=== PATIENT | male | born 1955 | race Caucasian/White ===

== ENCOUNTER 2017-11-25 14:02 | Emergency (ER) | payer BC, OTHER ==
[~2017-11-25] VITALS: Ht 185.4 cm; Wt 157.9 kg
--- NOTE | 2017-11-25 14:49 | Diagnostic Imaging Report ---
INDICATION: Shortness of air. TIME OF EXAM: 2:32 PM CORRELATION is made with prior study of 11/25/2017. The heart appears to be enlarged. No infiltrate or failure is detected. No effusion or pneumothorax is seen. IMPRESSION: Cardiomegaly. No other significant abnormality is detected. Dictated by: Dictated on workstation # [id number]
--- NOTE | 2017-11-25 15:35 | ED Respiratory ---
General Chief Complaint: Respiratory Problems Stated Complaint: SOA LIGHTHEADED Source: patient, family Exam Limitations: no limitations History of Present Illness Date Seen by Provider: Nov 25, 2017 Time Seen by Provider: 15:16 Initial Comments The patient is a 61-year-old white male who presented here with a complaint of shortness of breath. He reported that he was at [facility] and walked a short distance to his car. He felt very short of breath at that point in time. 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 He continues to take anticoagulants. They are concerned that he may have recurrent DVT and pulmonary emboli. 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 He is a lifetime nonsmoker. Timing/Duration: just prior to arrival Prior Episodes/Possible Cause: no prior episodes Allergies and Home Medications Allergies Coded Allergies: morphine (Verified Allergy, Mild, rash, 11/25/17) Home Medications Glipizide 10 Mg Tablet, 10 MG PO BID, (Reported) Levothyroxine Sodium 175 Mcg Tablet, 175 MCG PO DAILY, (Reported) Metformin HCl 1,000 Mg Tablet, 1,000 MG PO BID, (Reported) Warfarin Sodium 5 Mg Tablet, 5 MG PO HS, (Reported) Patient Home Medication List Home Medication List Reviewed: Yes Review of Systems Constitutional: see HPI EENTM: no symptoms reported Respiratory: short of breath Cardiovascular: no symptoms reported Gastrointestinal: no symptoms reported Genitourinary: no symptoms reported Musculoskeletal: back pain, other (he is to have future back surgery. He is reported to be very detuned physically because of inactivity increased by the back pain) Skin: no symptoms reported Psychiatric/Neurological: No Symptoms Reported Hematologic/Lymphatic: No Symptoms Reported Immunological/Allergic: no symptoms reported Past Ftryypl-Lcepag-Oihwkj Hx Patient Social History Recent Foreign Travel: No Contact w/Someone Who Travel: No Physical Exam Vital Signs Vital Signs - First Documented 11/25/17 14:27 Pulse 99 Resp 20 B/P (MAP) 148/95 (112) Pulse Ox 93 O2 Delivery Room Air Capillary Refill : General Appearance: other (obese with large belly) Eyes: Bilateral Eye Normal Inspection HEENT: normal ENT inspection Neck: full range of motion Respiratory: chest non-tender, lungs clear, normal breath sounds, no respiratory distress, no accessory muscle use, respiratory distress Cardiovascular: normal peripheral pulses, regular rate, rhythm, no edema, no gallop, no JVD, no murmur Gastrointestinal: normal bowel sounds, other (very large protuberant belly) Extremities: normal range of motion, non-tender, normal inspection, no pedal edema, no calf tenderness, normal capillary refill, pelvis stable 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4 13.3-17.7 G/DL Hematocrit 47 40-54 % Mean Corpuscular Volume 99 80-99 FL Mean Corpuscular Hemoglobin 35 H 25-34 PG Mean Corpuscular Hemoglobin Concent 35 32-36 G/DL Red Cell Distribution Width 13.5 10.0-14.5 % Platelet Count 282 130-400 10^3/uL Mean Platelet Volume 9.5 7.4-10.4 FL Neutrophils (%) (Auto) 58 42-75 % Lymphocytes (%) (Auto) 29 12-44 % Monocytes (%) (Auto) 11 0-12 % Eosinophils (%) (Auto) 2 0-10 % Basophils (%) (Auto) 1 0-10 % Neutrophils # (Auto) 4.9 1.8-7.8 X 10^3 Lymphocytes # (Auto) 2.4 1.0-4.0 X 10^3 Monocytes # (Auto) 1.0 0.0-1.0 X 10^3 Eosinophils # (Auto) 0.2 0.0-0.3 10^3/uL Basophils # (Auto) 0.0 0.0-0.1 10^3/uL D-Dimer 0.28 0.00-0.49 UG/ML Sodium Level 140 135-145 MMOL/L Potassium Level 4.2 3.6-5.0 MMOL/L Chloride Level 106 98-107 MMOL/L Carbon Dioxide Level 24 21-32 MMOL/L Anion Gap 10 5-14 MMOL/L Blood Urea Nitrogen 18 7-18 MG/DL Creatinine 0.88 0.60-1.30 MG/DL Estimat Glomerular Filtration Rate > 60 BUN/Creatinine Ratio 20 Glucose Level 181 H 70-105 MG/DL Calcium Level 9.7 8.5-10.1 MG/DL Total Bilirubin 0.8 0.1-1.0 MG/DL Aspartate Amino Transf (AST/SGOT) 29 5-34 U/L Alanine Aminotransferase (ALT/SGPT) 51 0-55 U/L Alkaline Phosphatase 56 40-136 U/L Troponin I < 0.30 <0.30 NG/ML Total Protein 7.3 6.4-8.2 GM/DL Albumin 4.0 3.2-4.5 GM/DL Blood Gas Puncture Site R BRACHIAL Blood Gas Patient Temperature 97.2 Arterial Blood pH 7.43 7.37-7.43 Arterial Blood Partial Pressure CO2 32 L 35-45 MMHG Arterial Blood Partial Pressure O2 86 79-93 MMHG Arterial Blood HCO3 21 L 23-27 MMOL/L Arterial Blood Total CO2 21.7 21.0-31.0 MMOL/L Arterial Blood Oxygen Saturation 98 94-100 % Arterial Blood Base Excess -3.1 L -2.5-2.5 MMOL/L Ildefonso Test YES-POS Blood Gas Ventilator Setting NO Blood Gas Inspired Oxygen 0 My Orders Orders - NICOLLE SHAH MD Cbc With Automated Diff (11/25/17 14:15) Comprehensive Metabolic Panel (11/25/17 14:15) Troponin I (11/25/17 14:15) Chest 1 View, Ap/Pa Only (11/25/17 14:15) Ekg Tracing (11/25/17 14:52) Arterial Blood Gas (11/25/17 16:27) Fibrin Degradation Products (11/25/17 16:18) Arterial Blood Draw (11/25/17 ) Vital Signs/I&O 11/25/17 14:27 Pulse 99 Resp 20 B/P (MAP) 148/95 (112) Pulse Ox 93 O2 Delivery Room Air Capillary Refill : Departure Communication (Admissions) 2226 the patient's had expressed concerns about recurrent pulmonary emboli. He is taking Coumadin and has for the last 5 years. A d-dimer was done to a later fears and was found to be normal this was explained to them and they appear comfortable Impression Primary Impression: dyspnea Additional Impression: low back pain Disposition: 01 HOME, SELF-CARE Condition: Stable/Unchanged Departure-Patient Inst. Decision time for Depature: 16:50 Referrals: NO,LOCAL PHYSICIAN (PCP) Primary Care Physician Add. Discharge Instructions: All discharge instructions reviewed with patient and/or family. Voiced understanding. Resume usual activities. If symptoms increase return to emergency room. NICOLLE SHAH MD Nov 25, 2017 15:35
[2017-11-25 15:41] LABS: BASOPHILS % (AUTO) 1 % (0-10); EOSINOPHILS # (AUTO) 0.2 10^3/uL (0.0-0.3); EOSINOPHILS % (AUTO) 2 % (0-10); HEMATOCRIT 47 % (40-54); HEMOGLOBIN 16.4 G/DL (13.3-17.7); LYMPHOCYTES # (AUTO) 2.4 X 10^3 (1.0-4.0); LYMPHOCYTES % (AUTO) 29 % (12-44); MEAN CORPUSCULAR HEMOGLOBIN 35 PG (25-34); MEAN CORPUSCULAR HGB CONC 35 G/DL (32-36); MEAN CORPUSCULAR VOLUME 99 FL (80-99); MEAN PLATELET VOLUME 9.5 FL (7.4-10.4); MONOCYTES % (AUTO) 11 % (0-12); NEUTROPHILS # (AUTO) 4.9 X 10^3 (1.8-7.8); NEUTROPHILS % (AUTO) 58 % (42-75); PLATELET COUNT 282 10^3/uL (130-400); RED BLOOD COUNT 4.73 10^6/uL (4.35-5.85); RED CELL DISTRIBUTION WIDTH 13.5 % (10.0-14.5); WHITE BLOOD COUNT 8.5 10^3/uL (4.3-11.0)
[2017-11-25] MEDS ORDERED: LEVO175T5 PO (15:44)
[2017-11-25] MEDS ORDERED: GLIP10TA13 PO (15:44)
[2017-11-25] MEDS ORDERED: WARF-48 PO (15:44)
[2017-11-25] MEDS ORDERED: METF10002 PO (15:44)
[2017-11-25 15:59] LABS: ALANINE AMINOTRANSFERASE 51 U/L (0-55); ALKALINE PHOSPHATASE 56 U/L (40-136); BILIRUBIN,TOTAL 0.8 MG/DL (0.1-1.0); BUN/CREATININE RATIO 20; CALCIUM 9.7 MG/DL (8.5-10.1); CARBON DIOXIDE 24 MMOL/L (21-32); CHLORIDE 106 MMOL/L (98-107); CREATININE SERUM 0.88 MG/DL (0.60-1.30); GFR ESTIMATED > 60; GLUCOSE 181 MG/DL (70-105); POTASSIUM 4.2 MMOL/L (3.6-5.0); SODIUM 140 MMOL/L (135-145); TOTAL PROTEIN 7.3 GM/DL (6.4-8.2)
[2017-11-25 16:34] LABS: ABG BASE EXCESS -3.1 MMOL/L (-2.5-2.5); ABG OXYGEN SATURATION 98 % (94-100); ABG PCO2 32 MMHG (35-45); ABG PH 7.43 (7.37-7.43); ABG PO2 86 MMHG (79-93); ABG TCO2 21.7 MMOL/L (21.0-31.0)
[2017-11-25 16:35] LABS: ALLENS TEST YES-POS; INSPIRED O2 0; PATIENT TEMP 97.2; VENTILATOR NO
[2017-11-25 17:47] VITALS: BP 141/87
== END 2017-11-25 17:47 | disposition home or self-care (01) ==
LOC: ER 14:07
DX: R06.00 Dyspnea, unspecified (principal); M54.5 Low back pain; Z79.01 Long term (current) use of anticoagulants; Z86.711 Personal history of pulmonary embolism; Z86.718 Personal history of other venous thrombosis and embolism; Z88.5 Allergy status to narcotic agent; Z79.84 Long term (current) use of oral hypoglycemic drugs
CPT/HCPCS: 36415; 36600; 71045; 80053; 82805; 84484; 85025; 85379; 93005

== ENCOUNTER 2020-06-04 14:46 | Outpatient (RCR) | payer BC ==
[~2020-06-04 14:46] MED LIST: GLIP10TA13 PO; LEVO175T5 PO; METF-399 PO; WARF-48 PO
== END 2020-06-05 | disposition home or self-care (01) ==
PROVIDERS: ATTEND Physical Medicine & Rehabilitation
DX: R53.1 Weakness (principal)

== ENCOUNTER 2020-08-11 13:45 | Outpatient (RCR) | payer BC | END 2020-09-07 | disposition home or self-care (01) | PROVIDERS: ATTEND Orthopaedic Surgery | DX: R53.1 Weakness (principal); Z96.652 Presence of left artificial knee joint; Z98.890 Other specified postprocedural states ==

== ENCOUNTER 2021-05-07 11:57 | Emergency (ER) | payer MEDICARE, OTHER ==
[~2021-05-07] VITALS: Ht 185.5 cm; Wt 128.8 kg
[2021-05-07] MEDS ORDERED: KETOROLAC 30 MG/ML VIAL IVP ONE (12:30)
--- NOTE | 2021-05-07 12:32 | ED Abdominal Pain ---
General Chief Complaint: Abdominal/GI Problems Stated Complaint: L SIDED PAIN Source of Information: Patient Exam Limitations: No Limitations History of Present Illness Date Seen by Provider: May 07, 2021 Time Seen by Provider: 12:30 Initial Comments To ER with left-sided abdominal pain getting progressively worse for 3 days. No nausea no vomiting no fever no chills no bowel changes no dysuria. Had a kidney stone several years ago but this pain feels different. Pain is worsened by twisting or bending, coughing and bumps in the car. Timing/Duration: 2-3 Days Severity/Quality: Moderate Location: LUQ, LLQ Radiation: No Radiation Activities at Onset: None Associated Symptoms: Denies Symptoms Allergies and Home Medications Allergies Coded Allergies: morphine (Verified Allergy, Mild, rash, 11/25/17) Patient Home Medication List Home Medication List Reviewed: Yes Glipizide (Glipizide) 10 Mg Tablet, 10 MG PO BID, (Reported) Entered as Reported by: KENRICK GARCIA on 11/25/17 1544 Levothyroxine Sodium (Levothyroxine Sodium) 175 Mcg Tablet, 175 MCG PO DAILY, (Reported) Entered as Reported by: KENRICK GARCIA on 11/25/17 1544 Metformin HCl (Metformin HCl) 1,000 Mg Tablet, 1,000 MG PO BID, (Reported) Entered as Reported by: KENRICK GARCIA on 11/25/17 1544 Oxycodone HCl/Acetaminophen (Percocet 5-325 mg Tablet) 1 Each Tablet, 1 TAB PO Q4H Prescribed by: GRANT BOYD on 05/07/21 1429 Warfarin Sodium (Warfarin Sodium) 5 Mg Tablet, 5 MG PO HS, (Reported) Entered as Reported by: KENRICK GARCIA on 11/25/17 1544 Review of Systems Review of Systems Constitutional: see HPI EENTM: No Symptoms Reported Respiratory: No Symptoms Reported Gastrointestinal: See HPI, Abdominal Pain; Denies Constipated, Denies Diarrhea, Denies Nausea Genitourinary: No Symptoms Reported Musculoskeletal: no symptoms reported Skin: no symptoms reported Psychiatric/Neurological: No Symptoms Reported Endocrine: No Symptoms Reported Hematologic/Lymphatic: No Symptoms Reported Past Rnsnhoh-Ezynct-Pffxvt Hx Immunizations Up To Date Tetanus Booster (TDap): Unknown Seasonal Allergies Seasonal Allergies: Yes Past Medical History Surgeries: Yes (knee scope) Respiratory: Yes Pulmonary Embolism Cardiac: Yes Deep Vein Thrombosis, High Cholesterol Neurological: No Genitourinary: Yes Kidney Stones Gastrointestinal: No Musculoskeletal: No Endocrine: Yes Diabetes, Non-Insulin dep HEENT: No Loss of Vision: Denies Hearing Impairment: Denies Cancer: No Psychosocial: No Integumentary: No Blood Disorders: No Physical Exam Vital Signs Vital Signs - First Documented 05/07/21 12:14 Temp 36.8 Pulse 88 Resp 17 B/P (MAP) 116/75 (89) O2 Delivery Room Air Capillary Refill : Height/Weight/BMI Height: 6'1.00" Weight: 348lbs. oz. 157.826415uj; BMI Method:Stated General Appearance: WD/WN, no apparent distress, obese HEENT: PERRL/EOMI, normal ENT inspection Respiratory: no respiratory distress, no accessory muscle use Cardiovascular: regular rate, rhythm, no murmur Gastrointestinal: normal bowel sounds, soft, tenderness (Left-sided.), other (Easily reducible umbilical hernia) Extremities: normal range of motion, non-tender Neurologic/Psychiatric: alert, normal mood/affect, oriented x 3 Skin: normal color, warm/dry Progress/Results/Core Measures Results/Orders Lab Results Laboratory Tests Test 05/07/21 12:22 05/07/21 13:30 Range/Units White Blood Count 10.6 4.3-11.0 10^3/uL Red Blood Count 5.28 4.30-5.52 10^6/uL Hemoglobin 18.0 H 13.3-17.7 g/dL Hematocrit 53 40-54 % Mean Corpuscular Volume 100 H 80-99 fL Mean Corpuscular Hemoglobin 34 25-34 pg Mean Corpuscular Hemoglobin Concent 34 32-36 g/dL Red Cell Distribution Width 12.7 10.0-14.5 % Platelet Count 237 130-400 10^3/uL Mean Platelet Volume 9.6 9.0-12.2 fL Immature Granulocyte % (Auto) 0 % Neutrophils (%) (Auto) 66 42-75 % Lymphocytes (%) (Auto) 21 12-44 % Monocytes (%) (Auto) 11 0-12 % Eosinophils (%) (Auto) 1 0-10 % Basophils (%) (Auto) 1 0-10 % Neutrophils # (Auto) 7.0 1.8-7.8 10^3/uL Lymphocytes # (Auto) 2.2 1.0-4.0 10^3/uL Monocytes # (Auto) 1.2 H 0.0-1.0 10^3/uL Eosinophils # (Auto) 0.1 0.0-0.3 10^3/uL Basophils # (Auto) 0.1 0.0-0.1 10^3/uL Immature Granulocyte # (Auto) 0.0 0.0-0.1 10^3/uL Prothrombin Time 21.2 H 12.2-14.7 SEC INR Comment 1.8 H 0.8-1.4 Sodium Level 135 135-145 MMOL/L Potassium Level 4.4 3.6-5.0 MMOL/L Chloride Level 99 98-107 MMOL/L Carbon Dioxide Level 22 21-32 MMOL/L Anion Gap 14 5-14 MMOL/L Blood Urea Nitrogen 11 7-18 MG/DL Creatinine 0.89 0.60-1.30 MG/DL Estimat Glomerular Filtration Rate 86 BUN/Creatinine Ratio 12 Glucose Level 181 H 70-105 MG/DL Calcium Level 9.9 8.5-10.1 MG/DL Corrected Calcium 9.7 8.5-10.1 MG/DL Total Bilirubin 1.1 H 0.1-1.0 MG/DL Aspartate Amino Transf (AST/SGOT) 16 5-34 U/L Alanine Aminotransferase (ALT/SGPT) 22 0-55 U/L Alkaline Phosphatase 73 40-136 U/L Total Protein 8.0 6.4-8.2 GM/DL Albumin 4.2 3.2-4.5 GM/DL Urine Color YELLOW Urine Clarity CLEAR Urine pH 6.0 5-9 Urine Specific [place] 1.015 L 1.016-1.022 Urine Protein NEGATIVE NEGATIVE Urine Glucose (UA) 3+ H NEGATIVE Urine Ketones NEGATIVE NEGATIVE Urine Nitrite NEGATIVE NEGATIVE Urine Bilirubin NEGATIVE NEGATIVE Urine Urobilinogen 0.2 < = 1.0 MG/DL Urine Leukocyte Esterase NEGATIVE NEGATIVE Urine RBC (Auto) TRACE-I H NEGATIVE Urine RBC NONE /HPF Urine WBC NONE /HPF Urine Squamous Epithelial Cells 0-2 /HPF Urine Crystals NONE /LPF Urine Bacteria NEGATIVE /HPF Urine Casts NONE /LPF Urine Mucus NEGATIVE /LPF Urine Culture Indicated NO My Orders Orders - GRANT BOYD MANAGER DESKTOP Ct Abd/Pelvis Wo(Kidney Stone) (05/07/21 12:28) Ed Iv/Invasive Line Start (05/07/21 12:28) Cbc With Automated Diff (05/07/21 12:28) Comprehensive Metabolic Panel (05/07/21 12:28) Ua Culture If Indicated (05/07/21 12:28) Ketorolac Injection (Toradol Injection) (05/07/21 12:30) Protime With Inr (05/07/21 12:30) Ct Abdomen/Pelvis W (05/07/21 13:27) Iohexol Injection (Omnipaque 350 Mg/Ml 1 (05/07/21 13:45) Received Contrast (Hold Metformin- Contr (05/07/21 13:45) Ns (Ivpb) (Sodium Chloride 0.9% Ivpb Bag (05/07/21 13:45) Sodium Chloride Flush (Catheter Flush Sy (05/07/21 13:45) Oxycodone/Apap 5/325mg Tablet (Percocet (05/07/21 14:15) Medications Given in ED Current Medications Medications Dose Ordered Sig/Ashley Route Start Time Stop Time Status Last Admin Dose Admin Iohexol 100 ml ONCE ONCE IV 05/07/21 13:45 05/07/21 13:47 DC 05/07/21 13:59 100 ML Ketorolac Tromethamine 15 mg ONCE ONCE IVP 05/07/21 12:30 05/07/21 12:31 DC 05/07/21 12:33 15 MG Oxycodone/ Acetaminophen 1 tab ONCE ONCE PO 05/07/21 14:15 05/07/21 14:16 DC 05/07/21 14:42 1 TAB Sodium Chloride 10 ml NEEDED PRN IV 05/07/21 13:45 05/07/21 13:59 10 ML Sodium Chloride 100 ml ONCE ONCE IV 05/07/21 13:45 05/07/21 13:47 DC 05/07/21 13:59 80 ML Vital Signs/I&O 05/07/21 12:14 Temp 36.8 Pulse 88 Resp 17 B/P (MAP) 116/75 (89) O2 Delivery Room Air Departure Communication (Admissions) Family Conversation NAME: KADIE COSTAGURPREET Villarreal MED REC#: [id number] PT STATUS: REG ER : 1955 PHYSICIAN: GRANT BOYD APRN ADMIT DATE: 05/07/21/ER Draft Date of Exam:05/07/21 CT ABD/PELVIS WO(KIDNEY STONE) Clinical indications: Patient with left-sided upper flank pain started 3 days ago. No history of injuries or illnesses recently. Exam: CT exam of the abdomen and pelvis is performed without IV or oral contrast using stone protocol. Coronal and sagittal reformatted images were created. Auto Exposure Controls were utilized during the CT exam to meet ALARA standards for radiation dose reduction. Comparisons: None. Findings: There is minimal atelectasis involving both lung bases. There are hypertrophic spurs involving bilateral acetabular regions. There is lower lumbar spine facet arthropathy. There are hypertrophic spurs involving the visualized lower thoracic spine and lumbar spine. There is minimal pericardial fluid seen. There are multiple low-density masses seen throughout the liver with the largest measuring at least 3.1 cm. Hounsfield units of these lesions are greater than fluid density at roughly 23. Liver is otherwise unremarkable. There is a spiculated mass like area with Hounsfield units of 27 located near the inferior aspect of spleen in the hilum which is inseparable from the spleen. This area measures 5.9 cm x 5.2 cm (AP x Trans x CC) . This lesion encases or markedly abuts the splenic artery and veins. There is diffuse atrophy of the pancreas. This lesion abuts the left adrenal gland with the appearance of loss of fat plane. Otherwise both adrenal glands are unremarkable. The gallbladder is unremarkable. There is mild volume loss involving both kidneys. There is a 3.2 cm cyst involving the anterior mid to upper aspect of left kidney. There is nonspecific perinephric fat stranding. Otherwise both kidneys are unremarkable. There are no stones seen or hydronephrosis. Bladder is fluid-filled and otherwise unremarkable. Prostate gland shows dystrophic calcification, but otherwise unremarkable. There is no intra-abdominal free air or free fluid. There are prominent left nodes in the lucho hepatis region and portacaval region. Marker lymph node in the portacaval region measures 1.8 cm x 2.5 cm. Marker lymph node in the lucho hepatis region is 1.3 cm x 2.5 cm. There are no other areas of significantly enlarged lymph nodes seen. There are fat-containing bilateral inguinal hernias with the left side larger than the right. Left side measures 6.3 cm in greatest dimension. There is diverticulosis involving the sigmoid colon and descending colon with no CT evidence of diverticulitis. There is no intestinal mass seen. The stomach, small bowel, and colon show no other significant abnormality. Appendix is unremarkable. There is a small fat-containing umbilical hernia. There is dependent edema in the posterior lumbar subcutaneous fat. The remainder of the extraabdominal pelvic soft tissue structures show no significant abnormality. IMPRESSION: 1: There are multiple low-density masses throughout the liver concerning for metastatic disease. CT scan of the abdomen and pelvis with contrast with portal venous and delayed phases is suggested. 2: There is a spiculated soft tissue mass area seen medially and inferiorly adjacent to the spleen near the hilum. This may represent a mass/neoplasm. Lymphoma should also be excluded. 3: There is enlargement of the lymph nodes in the lucho hepatis and portacaval region which are nonspecific. Metastatic disease should be excluded. 4: Otherwise there is no other abdominal or pelvic mass which may represent primary neoplasm. There is no other significant lymphadenopathy. 5: There is an exophytic left renal cyst. 7: There is diverticulosis with no CT evidence of diverticulitis. Dictated on workstation # [id number] Dict: 05/07/21 1309 Trans: 05/07/[address] [facility] [id number] Interpreted by: HAYDE ANGLIN MD Electronically signed by: NAME: LYNDSEY COSTA [facility] REC#: [id number] PT STATUS: REG ER : 1955 PHYSICIAN: GRANT BOYD APRN ADMIT DATE: 05/07/21/ER Draft Date of Exam:05/07/21 CT ABDOMEN/PELVIS W PROCEDURE: CT abdomen and pelvis with contrast. TECHNIQUE: Multiple contiguous axial images were obtained through the abdomen and pelvis after administration of intravenous contrast. Auto Exposure Controls were utilized during the CT exam to meet ALARA standards for radiation dose reduction. All CT scans use one or more of the following dose optimizing techniques: automated exposure control, MA and/or KvP adjustment based on patient size and exam type or iterative reconstruction. INDICATION: Abnormal noncontrast CT from earlier same day. Left-sided upper flank pain. COMPARISON: 05/07/2021 FINDINGS: Included portions of the lung bases are clear. CT ABDOMEN: Again identified are multiple lesion scattered throughout the liver. These show central hypoenhancement with peripheral irregular rim enhancement. Largest lesions are seen within the superior margins of segment 4A (measuring 2.6 x 2.6 cm) and at the junction of segment 5 and 6 (measuring 3.2 x 2.4 cm). Findings are most suggestive of metastatic disease. There is preservation of patency to the portal vein. Spiculated mass is again identified within the left upper abdominal quadrant. Note is made that this mass is inseparable from the hilum of the spleen as well as the distal tail of the pancreas and lateral genu of the left adrenal gland. Lesion measures approximately 6 x 6.2 cm. Note is also made of wedge-shaped areas of diminished enhancement to the splenic parenchyma. These are felt to most likely represent infarcts related to invasion of the splenic artery by the spiculated mass. Several prominent portacaval lymph nodes are again identified. No other abnormal mesenteric or retroperitoneal adenopathy is seen. Normal appendix is identified. Moderate air and stool seen scattered throughout the colon. There is also colonic diverticulosis, but no CT evidence of acute diverticulitis. Small bowel loops are nondistended. Benign renal cysts are identified on the left. Otherwise, kidneys and right adrenal gland have a normal CT appearance. There is no loculated fluid collection, free fluid or free air within the abdomen. [id number] scattered calcified aortic and arterial atherosclerosis is noted. Fat-containing periumbilical hernia is present. [place] measures 2.4 cm in diameter. Osseous structures show no acute abnormalities. CT PELVIS: Urinary bladder is minimally distended, but is otherwise grossly unremarkable. Large fat-containing bilateral inguinal hernias are present. There is no loculated fluid collection, free fluid or free air. No abnormal lymph nodes are seen. Osseous structures show no acute abnormalities. IMPRESSION: 1. Redemonstration metastatic disease to the liver. 2. Spiculated mass within the left upper abdominal quadrant. Again, this mass is inseparable from the tail of the pancreas, hilum of the spleen, and lateral genu of the left adrenal gland. Conceivably, this could represent pancreatic carcinoma with local invasion. Correlation with tissue sampling is recommended. 3. 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 4. Other nonemergent findings as described above. Dictated on workstation # [id number] Dict: 05/07/21 1423 Trans: 05/07/21 1438 [id number] Interpreted by: YADIRA MIKE MD Electronically signed by: NAME: LYNDSEY COSTA REC#: [id number] PT STATUS: REG ER : 1955 PHYSICIAN: GRANT BOYD APRN ADMIT DATE: 05/07/21/ER Draft Date of Exam:05/07/21 CT ABD/PELVIS WO(KIDNEY STONE) Clinical indications: Patient with left-sided upper flank pain started 3 days ago. No history of injuries or illnesses recently. Exam: CT exam of the abdomen and pelvis is performed without IV or oral contrast using stone protocol. Coronal and sagittal reformatted images were created. Auto Exposure Controls were utilized during the CT exam to meet ALARA standards for radiation dose reduction. Comparisons: None. Findings: There is minimal atelectasis involving both lung bases. There are hypertrophic spurs involving bilateral acetabular regions. There is lower lumbar spine facet arthropathy. There are hypertrophic spurs involving the visualized lower thoracic spine and lumbar spine. There is minimal pericardial fluid seen. There are multiple low-density masses seen throughout the liver with the largest measuring at least 3.1 cm. Hounsfield units of these lesions are greater than fluid density at roughly 23. Liver is otherwise unremarkable. There is a spiculated mass like area with Hounsfield units of 27 located near the inferior aspect of spleen in the hilum which is inseparable from the spleen. This area measures 5.9 cm x 5.2 cm (AP x Trans x CC) . This lesion encases or markedly abuts the splenic artery and veins. There is diffuse atrophy of the pancreas. This lesion abuts the left adrenal gland with the appearance of loss of fat plane. Otherwise both adrenal glands are unremarkable. The gallbladder is unremarkable. There is mild volume loss involving both kidneys. There is a 3.2 cm cyst involving the anterior mid to upper aspect of left kidney. There is nonspecific perinephric fat stranding. Otherwise both kidneys are unremarkable. There are no stones seen or hydronephrosis. Bladder is fluid-filled and otherwise unremarkable. Prostate gland shows dystrophic calcification, but otherwise unremarkable. There is no intra-abdominal free air or free fluid. There are prominent left nodes in the lucho hepatis region and portacaval region. Marker lymph node in the portacaval region measures 1.8 cm x 2.5 cm. Marker lymph node in the lucho hepatis region is 1.3 cm x 2.5 cm. There are no other areas of significantly enlarged lymph nodes seen. There are fat-containing bilateral inguinal hernias with the left side larger than the right. Left side measures 6.3 cm in greatest dimension. There is diverticulosis involving the sigmoid colon and descending colon with no CT evidence of diverticulitis. There is no intestinal mass seen. The stomach, small bowel, and colon show no other significant abnormality. Appendix is unremarkable. There is a small fat-containing umbilical hernia. There is dependent edema in the posterior lumbar subcutaneous fat. The remainder of the extraabdominal pelvic soft tissue structures show no significant abnormality. IMPRESSION: 1: There are multiple low-density masses throughout the liver concerning for metastatic disease. CT scan of the abdomen and pelvis with contrast with portal venous and delayed phases is suggested. 2: There is a spiculated soft tissue mass area seen medially and inferiorly adjacent to the spleen near the hilum. This may represent a mass/neoplasm. Lymphoma should also be excluded. 3: There is enlargement of the lymph nodes in the lucho hepatis and portacaval region which are nonspecific. Metastatic disease should be excluded. 4: Otherwise there is no other abdominal or pelvic mass which may represent primary neoplasm. There is no other significant lymphadenopathy. 5: There is an exophytic left renal cyst. 7: There is diverticulosis with no CT evidence of diverticulitis. Dictated on workstation # [id number] Dict: 05/07/21 1309 Trans: 05/07/[address] [facility] [id number] Interpreted by: HAYDE ANGLIN MD Electronically signed by: [id number] discussed the possible diagnosis of lymphoma with him. is at the bedside and states that about 4 years ago he had some persistently enlarged lymph nodes in his axilla bilaterally. They seemed to go away after a brief work-up and no cause was identified. He denies noting any swollen lymph nodes recently. No fevers or chills. He does not have any palpable head or neck lymphadenopathy. No axillary lymphadenopathy that is palpable at this time. He does have palpable bilateral right greater than left inguinal lymphadenopathy however and this may be suitable for biopsy. I will send him back over for a contrast-enhanced CT per radiology recommendation. 1416-His PCP is Dr Anne in [facility]. I spoke with Dr Eitan Samaniego from radiology here, thinks he could do a CT guided biopsy of the most inferior liver lesion. Would need H&P and order from primary care for the ct guided biopsy of liver lesion. Additionally, I see that he is on Lovenox and this would need to be held and bridged with Lovenox most likely in prior to doing the biopsy. I spoke with Dr. Macdonald's nurse Katelyn at [facility] and will fax my report and labs to them for further work-up of this. It an appointment for him with Dr. Macdonald on Tuesday when she returns to the office, 05/11/2021 at 10 AM. 1456-I spoke with Dr. Street from general surgery here about the splenic infarct, nothing to do about this, this is likely the cause of his pain however. Impression Primary Impression: Lesion of liver Additional Impression: Splenic lesion Disposition: HOME, SELF-CARE Condition: Stable Departure-Patient Inst. Decision time for Depature: 14:26 Referrals: REN MELENDEZ MD (PCP) Primary Care Physician Patient Instructions: No Instuctions Given Add. Discharge Instructions: 1. Return to ER for any concerns. Pain medication as directed. You have an appointment with Dr. Macdonald on at 10 AM on Tuesday. The neck step will be to obtain a tissue biopsy which Dr. Macdonald's clinic can help to schedule. All discharge instructions reviewed with patient and/or family. Voiced understanding. Scripts Oxycodone HCl/Acetaminophen (Percocet 5-325 mg Tablet) 1 Each Tablet 1 TAB PO Q4H for PAIN-MODERATE MDD 6 TABS for 7 Days, #20 TAB Prov: GRANT BOYD APRN 05/07/21 GRANT BOYD APRN May 07, 2021 12:32
[2021-05-07 12:39] LABS: ALBUMIN 4.2 GM/DL (3.2-4.5); POTASSIUM 4.4 MMOL/L (3.6-5.0)
[2021-05-07 12:41] LABS: CALCIUM 9.9 MG/DL (8.5-10.1)
[2021-05-07 12:44] LABS: BILIRUBIN,TOTAL 1.1 MG/DL (0.1-1.0)
[2021-05-07 12:45] LABS: CREATININE SERUM 0.89 MG/DL (0.60-1.30)
[2021-05-07 12:46] LABS: BASOPHILS # (AUTO) 0.1 10^3/uL (0.0-0.1); BASOPHILS % (AUTO) 1 % (0-10); EOSINOPHILS # (AUTO) 0.1 10^3/uL (0.0-0.3); EOSINOPHILS % (AUTO) 1 % (0-10); HEMATOCRIT 53 % (40-54); LYMPHOCYTES # (AUTO) 2.2 10^3/uL (1.0-4.0); LYMPHOCYTES % (AUTO) 21 % (12-44); MEAN CORPUSCULAR HEMOGLOBIN 34 pg (25-34); MEAN CORPUSCULAR HGB CONC 34 g/dL (32-36); MEAN CORPUSCULAR VOLUME 100 fL (80-99); MEAN PLATELET VOLUME 9.6 fL (9.0-12.2); MONOCYTES # (AUTO) 1.2 10^3/uL (0.0-1.0); MONOCYTES % (AUTO) 11 % (0-12); NEUTROPHILS % (AUTO) 66 % (42-75); PLATELET COUNT 237 10^3/uL (130-400); WHITE BLOOD COUNT 10.6 10^3/uL (4.3-11.0)
--- NOTE | 2021-05-07 13:23 | Diagnostic Imaging Report ---
Clinical indications: Patient with left-sided upper flank pain started 3 days ago. No history of injuries or illnesses recently. Exam: CT exam of the abdomen and pelvis is performed without IV or oral contrast using stone protocol. Coronal and sagittal reformatted images were created. Auto Exposure Controls were utilized during the CT exam to meet ALARA standards for radiation dose reduction. Comparisons: None. Findings: There is minimal atelectasis involving both lung bases. There are hypertrophic spurs involving bilateral acetabular regions. There is lower lumbar spine facet arthropathy. There are hypertrophic spurs involving the visualized lower thoracic spine and lumbar spine. There is minimal pericardial fluid seen. There are multiple low-density masses seen throughout the liver with the largest measuring at least 3.1 cm. Hounsfield units of these lesions are greater than fluid density at roughly 23. Liver is otherwise unremarkable. There is a spiculated mass like area with Hounsfield units of 27 located near the inferior aspect of spleen in the hilum which is inseparable from the spleen. This area measures 5.9 cm x 5.2 cm (AP x Trans x CC) . This lesion encases or markedly abuts the splenic artery and veins. There is diffuse atrophy of the pancreas. This lesion abuts the left adrenal gland with the appearance of loss of fat plane. Otherwise both adrenal glands are unremarkable. The gallbladder is unremarkable. There is mild volume loss involving both kidneys. There is a 3.2 cm cyst involving the anterior mid to upper aspect of left kidney. There is nonspecific perinephric fat stranding. Otherwise both kidneys are unremarkable. There are no stones seen or hydronephrosis. Bladder is fluid-filled and otherwise unremarkable. Prostate gland shows dystrophic calcification, but otherwise unremarkable. There is no intra-abdominal free air or free fluid. There are prominent left nodes in the lucho hepatis region and portacaval region. Marker lymph node in the portacaval region measures 1.8 cm x 2.5 cm. Marker lymph node in the lucho hepatis region is 1.3 cm x 2.5 cm. There are no other areas of significantly enlarged lymph nodes seen. There are fat-containing bilateral inguinal hernias with the left side larger than the right. Left side measures 6.3 cm in greatest dimension. There is diverticulosis involving the sigmoid colon and descending colon with no CT evidence of diverticulitis. There is no intestinal mass seen. The stomach, small bowel, and colon show no other significant abnormality. Appendix is unremarkable. There is a small fat-containing umbilical hernia. There is dependent edema in the posterior lumbar subcutaneous fat. The remainder of the extraabdominal pelvic soft tissue structures show no significant abnormality. IMPRESSION: 1: There are multiple low-density masses throughout the liver concerning for metastatic disease. CT scan of the abdomen and pelvis with contrast with portal venous and delayed phases is suggested. 2: There is a spiculated soft tissue mass area seen medially and inferiorly adjacent to the spleen near the hilum. This may represent a mass/neoplasm. Lymphoma should also be excluded. 3: There is enlargement of the lymph nodes in the lucho hepatis and portacaval region which are nonspecific. Metastatic disease should be excluded. 4: Otherwise there is no other abdominal or pelvic mass which may represent primary neoplasm. There is no other significant lymphadenopathy. 5: There is an exophytic left renal cyst. 7: There is diverticulosis with no CT evidence of diverticulitis. Dictated by: Dictated on workstation # [id number]
[2021-05-07 13:39] LABS: BILIRUBIN,URINE NEGATIVE (NEGATIVE); CLARITY,URINE CLEAR; COLOR,URINE YELLOW; GLUCOSE, URINE (UA) 3+ (NEGATIVE); KETONES,URINE NEGATIVE (NEGATIVE); LEUKOCYTE ESTERASE ,URINE NEGATIVE (NEGATIVE); NITRITE,URINE NEGATIVE (NEGATIVE); PROTEIN,URINE NEGATIVE (NEGATIVE)
[2021-05-07] MEDS ORDERED: IOHEXOL 350 MG/ML 100 ML (OMNIPAQUE 350) VIAL IV ONE (13:45)
[2021-05-07] MEDS ORDERED: NS 100 ML (IVPB) BAG IV ONE (13:45)
[2021-05-07] MEDS ORDERED: HOLD METFORMIN - RECEIVED CONTRAST 20 ML VIAL IV SCH (13:45)
[2021-05-07] MEDS ORDERED: CATHETER FLUSH 10 ML SYR IV PRN (13:45)
[2021-05-07 13:48] LABS: BACTERIA,URINE NEGATIVE /HPF; SQUAMOUS EPITHELIAL CELL,UR 0-2 /HPF
[2021-05-07 13:58] LABS: INR 1.8 (0.8-1.4); PROTHROMBIN TIME PATIENT 21.2 SEC (12.2-14.7)
[2021-05-07] MEDS ORDERED: oxyCODONE/APAP 5/325MG (PERCOCET 5) TABLET PO ONE (14:15)
[2021-05-07] MEDS ORDERED: OXYC1TAB87 PO (14:29)
--- NOTE | 2021-05-07 14:39 | Diagnostic Imaging Report ---
PROCEDURE: CT abdomen and pelvis with contrast. TECHNIQUE: Multiple contiguous axial images were obtained through the abdomen and pelvis after administration of intravenous contrast. Auto Exposure Controls were utilized during the CT exam to meet ALARA standards for radiation dose reduction. All CT scans use one or more of the following dose optimizing techniques: automated exposure control, MA and/or KvP adjustment based on patient size and exam type or iterative reconstruction. INDICATION: Abnormal noncontrast CT from earlier same day. Left-sided upper flank pain. COMPARISON: 05/07/2021 FINDINGS: Included portions of the lung bases are clear. CT ABDOMEN: Again identified are multiple lesion scattered throughout the liver. These show central hypoenhancement with peripheral irregular rim enhancement. Largest lesions are seen within the superior margins of segment 4A (measuring 2.6 x 2.6 cm) and at the junction of segment 5 and 6 (measuring 3.2 x 2.4 cm). Findings are most suggestive of metastatic disease. There is preservation of patency to the portal vein. Spiculated mass is again identified within the left upper abdominal quadrant. Note is made that this mass is inseparable from the hilum of the spleen as well as the distal tail of the pancreas and lateral genu of the left adrenal gland. Lesion measures approximately 6 x 6.2 cm. Note is also made of wedge-shaped areas of diminished enhancement to the splenic parenchyma. These are felt to most likely represent infarcts related to invasion of the splenic artery by the spiculated mass. Several prominent portacaval lymph nodes are again identified. No other abnormal mesenteric or retroperitoneal adenopathy is seen. Normal appendix is identified. Moderate air and stool seen scattered throughout the colon. There is also colonic diverticulosis, but no CT evidence of acute diverticulitis. Small bowel loops are nondistended. Benign renal cysts are identified on the left. Otherwise, kidneys and right adrenal gland have a normal CT appearance. There is no loculated fluid collection, free fluid or free air within the abdomen. Rznz-aw-ntsdyiix scattered calcified aortic and arterial atherosclerosis is noted. Fat-containing periumbilical hernia is present. Ostia measures 2.4 cm in diameter. Osseous structures show no acute abnormalities. CT PELVIS: Urinary bladder is minimally distended, but is otherwise grossly unremarkable. Large fat-containing bilateral inguinal hernias are present. There is no loculated fluid collection, free fluid or free air. No abnormal lymph nodes are seen. Osseous structures show no acute abnormalities. IMPRESSION: 1. Redemonstration metastatic disease to the liver. 2. Spiculated mass within the left upper abdominal quadrant. Again, this mass is inseparable from the tail of the pancreas, hilum of the spleen, and lateral genu of the left adrenal gland. Conceivably, this could represent pancreatic carcinoma with local invasion. Correlation with tissue sampling is recommended. 3. 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 4. Other nonemergent findings as described above. Dictated by: Dictated on workstation # [id number]
[2021-05-07 15:09] VITALS: BP 121/74
== END 2021-05-07 15:09 | disposition home or self-care (01) ==
LOC: EDUNIT# 11:57 → ER 11:58
DX: K76.89 Other specified diseases of liver (principal); D73.89 Other diseases of spleen; E66.9 Obesity, unspecified; E11.9 Type 2 diabetes mellitus without complications; Z68.45 Body mass index [BMI] 70 or greater, adult; Z86.711 Personal history of pulmonary embolism; Z86.718 Personal history of other venous thrombosis and embolism; Z79.84 Long term (current) use of oral hypoglycemic drugs; Z79.01 Long term (current) use of anticoagulants
CPT/HCPCS: 36415; 74176; 74177; 80053; 81000; 85025; 85610; 96374

== ENCOUNTER 2021-05-20 09:05 | Outpatient (CLI) | payer MEDICARE, OTHER ==
[~2021-05-20] VITALS: Ht 185.5 cm; Wt 128.8 kg
[2021-05-20] VITALS (12 sets, daily range): BP systolic 105–140; BP diastolic 64–85
[~2021-05-20 09:05] MED LIST changes: +OXYC1TAB87 PO
[2021-05-20] MEDS ORDERED: NS IV 1000 ML 1,000 ML IV STA (09:40)
[2021-05-20 09:41] LABS: BASOPHILS # (AUTO) 0.1 10^3/uL (0.0-0.1); BASOPHILS % (AUTO) 1 % (0-10); EOSINOPHILS # (AUTO) 0.2 10^3/uL (0.0-0.3); EOSINOPHILS % (AUTO) 2 % (0-10); HEMATOCRIT 49 % (40-54); HEMOGLOBIN 16.5 g/dL (13.3-17.7); LYMPHOCYTES # (AUTO) 2.1 10^3/uL (1.0-4.0); LYMPHOCYTES % (AUTO) 26 % (12-44); MEAN CORPUSCULAR HEMOGLOBIN 35 pg (25-34); MEAN CORPUSCULAR HGB CONC 34 g/dL (32-36); MEAN CORPUSCULAR VOLUME 102 fL (80-99); MEAN PLATELET VOLUME 9.4 fL (9.0-12.2); MONOCYTES % (AUTO) 12 % (0-12); NEUTROPHILS % (AUTO) 59 % (42-75); PLATELET COUNT 325 10^3/uL (130-400); WHITE BLOOD COUNT 8.4 10^3/uL (4.3-11.0)
[2021-05-20] MEDS ORDERED: fentaNYL INJ 100 MCG/2 ML AMP IVP ONE (09:45)
[2021-05-20] MEDS ORDERED: MIDAZOLAM 2 MG/2 ML (VERSED) VIAL IVP ONE (09:45)
[2021-05-20] MEDS ORDERED: LIDOCAINE 1% INJ 20 ML 20 ML VIAL INJ ONE (09:45)
[2021-05-20 10:05] LABS: PROTHROMBIN TIME PATIENT 13.7 SEC (12.2-14.7)
--- NOTE | 2021-05-20 12:13 | Diagnostic Imaging Report ---
TECHNIQUE: All CT scans use one or more of the following dose optimizing techniques: automated exposure control, MA and/or KvP adjustment based on patient size and exam type or iterative reconstruction. INDICATION: Liver masses. Patient presents for CT-guided biopsy. Patient brought to the CT suite placed on table in the supine position. Axial imaging through the abdomen was performed to evaluate appropriate entry site. Right abdomen was prepped and draped in usual sterile fashion. The procedure was performed utilizing conscious sedation with radiology nursing and constant patient monitoring. Patient was given a total of 100 mg of fentanyl intravenously and 1 mg of Versed intravenously. Total procedure time was 12 minutes. 18-gauge coaxial Temno needle was advanced placed with its tip along the margin of the dominant low-density lesion in the inferior right lobe liver. Multiple core biopsies were obtained. The needle was removed during blood patch administration. Hemostasis was obtained using manual compression. Follow-up imaging shows no complicating features. IMPRESSION: A CT-guided right lobe liver mass biopsy, utilizing conscious sedation. Pathology results are currently pending. Dictated by: Dictated on workstation # [id number]
[2021-05-20] MEDS ORDERED: HYDROcodone/APAP 5 MG/325 MG (LORTAB) TAB PO PRN (12:15)
--- NOTE | 2021-05-20 12:47 | Pre-Op Note & Conscious Sedat ---
Pre-Operative Progress Note H&P Reviewed The H&P was reviewed, patient examined and no changes noted. Date H&P Reviewed: May 20, 2021 Time H&P Reviewed: 09:00 Pre-Op Diagnosis: liver mass Conscious Sedation Pre-Proced Time 09:00 ASA Score 2 For ASA 3 and 4: Consider anesthesia and medical clearance. Also, for patients with a history of failed moderate sedation consider anesthesia. Airway Lungs Heart ASA score ASA 1: a normal healthy patient ASA 2: a patient with a mild systemic disease (mid diabetes, controlled hypertension, obesity ASA 3: a patient with a severe systemic disease that limits activity (angina, COPD, prior Myocardial infarction) ASA 4: a patient with an incapacitating disease that is a constant threat to life (CHF, renal failure) ASA 5: a moribund patient not expected to survive 24 hrs. (ruptured aneurysm) ASA 6: a declared brain- patient whose organs are being harvested. For emergent operations, add the letter E after the classification Mallampati Classification Grade 2 Sedation Plan Analgesia, Amnesia, Plan communicated to team members, Discussed options with patient/fam, Discussed risks with patient/fam The patient is an appropriate candidate to undergo the planned procedure, sedation, and anesthesia. The patient immediately re-assessed prior to indication. BRIANDA SANCHEZ MD May 20, 2021 12:47
== END 2021-05-20 14:05 ==
LOC: SDC 09:05
PROVIDERS: ATTEND Internal Medicine
DX: K86.89 Other specified diseases of pancreas (principal); R16.0 Hepatomegaly, not elsewhere classified
CPT/HCPCS: 36415; 77012; 85025; 85610; 85730; 99156

== ENCOUNTER 2021-06-14 06:13 | Emergency (ER) | payer MEDICARE, OTHER ==
[2021-06-14] MEDS ORDERED: NS IV 1000 ML 1,000 ML IV SCH (06:30)
[2021-06-14] MEDS ORDERED: ASPIRIN 81 MG CHEW (CHILDREN'S ASA) PO ONE (06:30)
--- NOTE | 2021-06-14 06:39 | ED Chest Pain ---
General Chief Complaint: Chest Pain Stated Complaint: SOA;BLOOD CLOT L LEG;CHEST PAIN Source: patient Exam Limitations: no limitations History of Present Illness Date Seen by Provider: Jun 14, 2021 Time Seen by Provider: 06:18 Initial Comments Patient to ER by private conveyance from home with chief complaint of chest pain since yesterday evening. Right-sided sharp sometimes radiating to his left side. Not radiating through to the back. He does not have a history of coronary disease. He does not smoke and denies hypertension hyperlipidemia but he does have a history of diabetes on glipizide. He has COVID positive antigen test on Tuesday of last week, 12. Symptoms started on the Tuesday. He is also on warfarin for history of blood clot in his leg for the past 9 or 10 years. He had a blood clot in his leg diagnosed by ultrasound by primary care doctor in [place]. Last time he had his INR checked it was 2.0. He also has a history of pancreatic/liver cancer diagnosed in the past month. He is set to start chemotherapy except that he became positive for COVID-19. His oncologist is in [place]. He has had an occasional cough but no fevers chills malaise, body aches, nausea, vomiting, diarrhea. He has not pursued any further treatment of his COVID-19 such as monoclonal antibodies, antivirals etc.. He rates his pain as a 0 out of 10 right now. He takes oxycodone for his pancreatic pain. Allergies and Home Medications Allergies Coded Allergies: morphine (Verified Allergy, Mild, rash, 11/25/17) Patient Home Medication List Home Medication List Reviewed: Yes Glipizide (Glipizide) 10 Mg Tablet, 10 MG PO BID, (Reported) Entered as Reported by: KENRICK GARCIA on 11/25/17 154 Levothyroxine Sodium (Levothyroxine Sodium) 175 Mcg Tablet, 175 MCG PO DAILY, (Reported) Entered as Reported by: KENRICK GARCIA on 11/25/17 154 Metformin HCl (Metformin HCl) 1,000 Mg Tablet, 1,000 MG PO BID, (Reported) Entered as Reported by: KENRICK GARCIA on 11/25/17 154 Oxycodone HCl/Acetaminophen (Percocet 5-325 mg Tablet) 1 Each Tablet, 1 TAB PO Q4H Prescribed by: GRANT BOYD on 05/07/21 1429 Warfarin Sodium (Warfarin Sodium) 5 Mg Tablet, 5 MG PO HS, (Reported) Entered as Reported by: KENRICK GARCIA on 11/25/17 1544 Review of Systems Review of Systems Constitutional: No chills, No diaphoresis EENTM: No Blurred Vision, No Double Vision Respiratory: Cough, Shortness of Air Cardiovascular: See HPI, Chest Pain; Denies Lightheadedness Gastrointestinal: Denies Abdominal Pain, Denies Constipated, Denies Diarrhea, Denies Nausea, Denies Vomiting Genitourinary: Denies Burning, Denies Discharge Musculoskeletal: No back pain, No joint pain Skin: No change in color, No rash Psychiatric/Neurological: Denies Anxiety, Denies Depressed All Other Systems Reviewed Negative Unless Noted: Yes Past Tonbcfs-Ehepry-Vlqvme Hx Patient Social History Tobacco Use?: No Use of E-Cig and/or Vaping dev: No Substance use?: No Immunizations Up To Date Tetanus Booster (TDap): Unknown Seasonal Allergies Seasonal Allergies: Yes Past Medical History Surgeries: Yes (knee scope) Respiratory: Yes Pulmonary Embolism Cardiac: Yes Deep Vein Thrombosis, High Cholesterol Neurological: No Genitourinary: Yes Kidney Stones Gastrointestinal: No Musculoskeletal: No Endocrine: Yes Diabetes, Non-Insulin dep HEENT: No Loss of Vision: Denies Hearing Impairment: Denies Cancer: No Psychosocial: No Integumentary: No Blood Disorders: No Physical Exam Vital Signs Vital Signs - First Documented Capillary Refill : Height, Weight, BMI Height: 6'1.00" Weight: 348lbs. oz. [id number]; 37.00 BMI Method:Stated General Appearance: No Apparent Distress, WD/WN, Chronically ill HEENT: PERRL/EOMI, TMs Normal Neck: Full Range of Motion, Normal Inspection Respiratory: Lungs Clear, Normal Breath Sounds, No Accessory Muscle Use, No Respiratory Distress Cardiovascular: Regular Rate, Rhythm, No Edema, Normal Peripheral Pulses Gastrointestinal: Normal Bowel Sounds, Non Tender, Soft Extremity: Normal Capillary Refill, Normal Inspection, Normal Range of Motion Neurologic/Psychiatric: Alert, Oriented x3, No Motor/Sensory Deficits Skin: Normal Color, Warm/Dry Progress/Results/Core Measures Results/Orders Lab Results Laboratory Tests Test 06/14/21 06:30 Range/Units White Blood Count 6.2 4.3-11.0 10^3/uL Red Blood Count 5.04 4.30-5.52 10^6/uL Hemoglobin 16.8 13.3-17.7 g/dL Hematocrit 49 40-54 % Mean Corpuscular Volume 97 80-99 fL Mean Corpuscular Hemoglobin 33 25-34 pg Mean Corpuscular Hemoglobin Concent 34 32-36 g/dL Red Cell Distribution Width 12.6 10.0-14.5 % Platelet Count 179 130-400 10^3/uL Mean Platelet Volume 10.0 9.0-12.2 fL Immature Granulocyte % (Auto) 0 % Neutrophils (%) (Auto) 59 42-75 % Lymphocytes (%) (Auto) 29 12-44 % Monocytes (%) (Auto) 10 0-12 % Eosinophils (%) (Auto) 1 0-10 % Basophils (%) (Auto) 1 0-10 % Neutrophils # (Auto) 3.7 1.8-7.8 10^3/uL Lymphocytes # (Auto) 1.8 1.0-4.0 10^3/uL Monocytes # (Auto) 0.6 0.0-1.0 10^3/uL Eosinophils # (Auto) 0.1 0.0-0.3 10^3/uL Basophils # (Auto) 0.0 0.0-0.1 10^3/uL Immature Granulocyte # (Auto) 0.0 0.0-0.1 10^3/uL Prothrombin Time 18.5 H 12.2-14.7 SEC INR Comment 1.5 H 0.8-1.4 Activated Partial Thromboplast Time 37 H 24-35 SEC D-Dimer 15.46 H 0.00-0.49 UG/ML Sodium Level 134 L 135-145 MMOL/L Potassium Level 4.0 3.6-5.0 MMOL/L Chloride Level 100 98-107 MMOL/L Carbon Dioxide Level 19 L 21-32 MMOL/L Anion Gap 15 H 5-14 MMOL/L Blood Urea Nitrogen 13 7-18 MG/DL Creatinine 0.81 0.60-1.30 MG/DL Estimat Glomerular Filtration Rate 98 BUN/Creatinine Ratio 16 Glucose Level 219 H 70-105 MG/DL Calcium Level 8.8 8.5-10.1 MG/DL Corrected Calcium 9.0 8.5-10.1 MG/DL Magnesium Level 1.5 L 1.6-2.4 MG/DL Total Bilirubin 0.5 0.1-1.0 MG/DL Aspartate Amino Transf (AST/SGOT) 35 H 5-34 U/L Alanine Aminotransferase (ALT/SGPT) 38 0-55 U/L Alkaline Phosphatase 81 40-136 U/L Myoglobin 35.3 10.0-92.0 NG/ML Troponin I < 0.028 <0.028 NG/ML B-Type Natriuretic Peptide < 10.0 <100.0 PG/ML Total Protein 7.4 6.4-8.2 GM/DL Albumin 3.7 3.2-4.5 GM/DL Lipase 7 L 8-78 U/L Influenza Type A Antigen NEGATIVE NEGATIVE Influenza Type B Antigen NEGATIVE NEGATIVE My Orders Orders - TROY POWER Continuous Ekg Monitoring (06/14/21 06:16) Ekg Tracing (06/14/21 06:16) Cbc With Automated Diff (06/14/21 06:30) Magnesium (06/14/21 06:30) Chest 1 View, Ap/Pa Only (06/14/21 06:30) Ekg Tracing (06/14/21 06:30) Comprehensive Metabolic Panel (06/14/21 06:30) Myoglobin Serum (06/14/21 06:30) Protime With Inr (06/14/21 06:30) Partial Thromboplastin Time (06/14/21 06:30) O2 (06/14/21 06:30) Monitor-Rhythm Ecg Trace Only (06/14/21 06:30) Lipid Panel (06/15/21 06:00) Ed Iv/Invasive Line Start (06/14/21 06:30) Lipase (06/14/21 06:30) Bnp [place] (06/14/21 06:30) Fibrin Degradation Products (06/14/21 06:30) Troponin I [place] (06/14/21 06:30) Aspirin Chewable Tablet (Baby Aspirin Ch (06/14/21 06:30) Influenza A & B Antigens (06/14/21 06:30) Covid-19 External Lab Results (06/14/21 06:30) Isolation Central Supply Req (06/14/21 06:30) Ed Iv/Invasive Line Start (06/14/21 06:30) Ns Iv 1000 Ml (Sodium Chloride 0.9%) (06/14/21 06:30) Ct Angio Chest W (06/14/21 06:30) Magnesium 1 Gm/100 Ml Ivpb (Magnesium Reynolds (06/14/21 07:15) Iohexol Injection (Omnipaque 350 Mg/Ml 1 (06/14/21 07:45) Received Contrast (Hold Metformin- Contr (06/14/21 07:45) Sodium Chloride Flush (Catheter Flush Sy (06/14/21 07:45) Ns (Ivpb) (Sodium Chloride 0.9% Ivpb Bag (06/14/21 07:45) Medications Given in ED Current Medications Medications Dose Ordered Sig/Ashley Route Start Time Stop Time Status Last Admin Dose Admin Aspirin 324 mg ONCE ONCE PO 06/14/21 06:30 06/14/21 06:34 DC 06/14/21 06:42 324 MG Iohexol 150 ml ONCE ONCE IV 06/14/21 07:45 06/14/21 07:46 DC 06/14/21 07:38 85 ML Magnesium Sulfate/ Dextrose 100 ml @ 100 mls/hr ONCE ONCE IV 06/14/21 07:15 06/14/21 08:14 DC 06/14/21 07:52 100 MLS/HR Sodium Chloride 10 ml NEEDED PRN IV 06/14/21 07:45 06/14/21 07:38 10 ML Sodium Chloride 100 ml ONCE ONCE IV 06/14/21 07:45 06/14/21 07:46 DC 06/14/21 07:38 80 ML Vital Signs/I&O 06/14/21 06/14/21 06:21 06:21 Temp 37.0 Pulse 93 Resp 18 B/P (MAP) 139/83 (101) Pulse Ox 96 O2 Delivery Room Air Room Air Progress Progress Note #1: Time: 06:39 Progress Note High suspicion for pulmonary embolism versus referred pain from the pancreas. Patient not experiencing any pain at the moment. We will give him an aspirin to chew and swallow for coronary protection. We will check an INR and see what his warfarin dosing is doing for him. CT angiogram of the chest looking for pulmonary embolism. We will also think about things like pneumonia. Good lung sounds bilateral so pneumothorax less likely. Oxygenating well 95 to 97% on room air. No increased work of breathing Progress Note #2: Time: 08:40 Progress Note Patient's warfarin is subtherapeutic in combination with COVID and pancreatic cancer this has resulted in a pulmonary embolism. No evidence of heart failure or strain at this time. Patient starts Lovenox today for the next 5 days in anticipation of getting a port on Tuesday. After that we will have him start Eliquis. Initial ECG Impression Date: Jun 14, 2021 Initial ECG Impression Time: 06:20 Initial ECG Rate: 93 Initial ECG Rhythm: Normal Sinus Initial ECG Intervals: Normal Initial ECG Impression: Normal, Nonspecific Changes Comment Sinus rhythm without clinically relevant ST changes. Diagnostic Imaging Diagonstic Imaging: Xray Plain Films/CT/US/NM/MRI: chest Comments [facility] [place] [place] NAME[facility] REC[facility] [id number] PT STATUS: REG ER : 1955 PHYSICIAN: TROY POWER MD ADMIT DATE: 06/14/21/ER Signed Date of Exam:06/14/21 CHEST 1 VIEW, AP/PA ONLY CHEST 1 VIEW, AP/PA ONLY Indication: Chest pain. Comparison: 11/25/2017 Findings: No focal airspace disease in the visualized lungs. Please note that the posterior lower lobes are poorly evaluated by portable radiography. No pleural effusion or pneumothorax. Unchanged enlargement of cardiac silhouette. Impression: 1. No acute cardiopulmonary process by portable radiography. Dictated by: Dictated on workstation # [id number] Dict: 06/14/21 0650 Trans: 06/14/21 0651 [facility] [id number] Interpreted by: JAYLAN CHAMPION MD Electronically signed by: JAYLAN CHAMPION MD 06/14/21 0651 Reviewed: Reviewed by Ar Diagonstic Imaging: CT (angio) Plain Films/CT/US/NM/MRI: chest Comments [facility] [place] [place] NAME: [facility] REC#: [id number] PT STATUS: REG ER : 1955 PHYSICIAN: TROY POWER MD ADMIT DATE: 06/14/21/ER Draft Date of Exam:06/14/21 CT ANGIO CHEST W EXAMINATION: CT angiography of the chest. TECHNIQUE: Contrast enhanced thin section helical images were obtained through the chest with intravenous contrast timed for the optimal opacification of the arterial structures per CTA protocol. Post-processing, reconstructions and interpretation of angiographic images of the vessels was performed. 3D MIP reconstructions were performed and reviewed. All CT scans use one or more of the following dose optimizing techniques: automated exposure control, MA and/or KvP adjustment based on a patient size and exam type, or iterative reconstruction. HISTORY: Shortness of breath and chest pain, COVID 19 COMPARISON: None available. FINDINGS: There are segmental pulmonary emboli in the right lower lobe. Segmental pulmonary emboli also present in the left upper lobe. No evidence of right heart strain. Mild patchy areas of groundglass in the lungs are consistent with history of COVID 19 pneumonia. No pleural effusion. No pneumothorax. No suspicious nodules. There is no axillary or supraclavicular lymphadenopathy. There is no mediastinal lymphadenopathy. Heart size is normal. There are moderate coronary artery calcifications. No pericardial effusion. Aorta is normal in caliber. Limited views of the upper abdomen show a large pancreatic tail mass invading the spleen. There are extensive metastatic lesions in the liver. They appear to have increased in size with a segment 4A lesion measuring 3.5 x 2.8 cm previously 2.5 x 2.5 cm. There is lucho hepatis lymphadenopathy. There are no suspicious osseus lesions. IMPRESSION: 1. Segmental pulmonary emboli in the right lower lobe and lingula without evidence of right heart strain. 2. Large pancreatic tail mass and metastatic liver lesions appear increased from prior exam. Critical findings called to Dr. Power by Dr. Clifton on 06/14/2021 at 7:42 AM. Dictated on workstation # [id number] Dict: 06/14/21 0737 Trans: 06/14/21 0744 [facility] [id number] Interpreted by: ALVIN CLIFTON MD Electronically signed by: Reviewed: Reviewed by Me Departure Impression Primary Impression: COVID-19 Additional Impression: Pulmonary embolism Qualified Codes: I26.94 - Multiple subsegmental pulmonary emboli without acute cor pulmonale Disposition: HOME, SELF-CARE Condition: Stable Departure-Patient Inst. Decision time for Depature: 08:42 Referrals: NO,LOCAL PHYSICIAN (PCP/Family) Primary Care Physician Patient Instructions: COVID-19 (DC), Pulmonary Embolism (Blood Clot in the Lungs) Add. Discharge Instructions: Stop taking the warfarin. You have a blood clot in your lung likely as a result of the cancer and COVID- 19. The warfarin today was below the level it needs to be. Start taking the Lovenox and we will switch you to Eliquis 5 mg twice a day. Follow-up with your primary care provider or oncologist in the next couple weeks to continue the Eliquis to keep the blood clots from going so that your body can resorb them naturally. Return to the nearest ER promptly if you are having oxygen saturations below 90% while at rest. All discharge instructions reviewed with patient and/or family. Voiced understanding. Scripts Apixaban (Eliquis) 5 Mg Tablet 5 MG PO BID for 30 Days, #60 TAB 0 Refills Prov: TROY POWER 06/14/21 Work/School Note: Work Release Form Date Seen in the Emergency Department: Jun 14, 2021 Return to Work: Jun 17, 2021 Restrictions: Return-No Fever (24hrs) TROY POWER Jun 14, 2021 06:39
[2021-06-14 06:43] LABS: BASOPHILS % (AUTO) 1 % (0-10); EOSINOPHILS # (AUTO) 0.1 10^3/uL (0.0-0.3); EOSINOPHILS % (AUTO) 1 % (0-10); HEMATOCRIT 49 % (40-54); HEMOGLOBIN 16.8 g/dL (13.3-17.7); LYMPHOCYTES # (AUTO) 1.8 10^3/uL (1.0-4.0); LYMPHOCYTES % (AUTO) 29 % (12-44); MEAN CORPUSCULAR HEMOGLOBIN 33 pg (25-34); MEAN CORPUSCULAR HGB CONC 34 g/dL (32-36); MEAN CORPUSCULAR VOLUME 97 fL (80-99); MONOCYTES # (AUTO) 0.6 10^3/uL (0.0-1.0); MONOCYTES % (AUTO) 10 % (0-12); NEUTROPHILS # (AUTO) 3.7 10^3/uL (1.8-7.8); NEUTROPHILS % (AUTO) 59 % (42-75); PLATELET COUNT 179 10^3/uL (130-400); WHITE BLOOD COUNT 6.2 10^3/uL (4.3-11.0)
--- NOTE | 2021-06-14 06:52 | Diagnostic Imaging Report ---
CHEST 1 VIEW, AP/PA ONLY Indication: Chest pain. Comparison: 11/25/2017 Findings: No focal airspace disease in the visualized lungs. Please note that the posterior lower lobes are poorly evaluated by portable radiography. No pleural effusion or pneumothorax. Unchanged enlargement of cardiac silhouette. Impression: 1. No acute cardiopulmonary process by portable radiography. Dictated by: Dictated on workstation # [id number]
[2021-06-14 06:55] LABS: INR 1.5 (0.8-1.4); PROTHROMBIN TIME PATIENT 18.5 SEC (12.2-14.7)
[2021-06-14 06:56] LABS: ALBUMIN 3.7 GM/DL (3.2-4.5)
[2021-06-14 06:57] LABS: CALCIUM 8.8 MG/DL (8.5-10.1)
[2021-06-14 06:59] LABS: TOTAL PROTEIN 7.4 GM/DL (6.4-8.2)
[2021-06-14 07:00] LABS: BILIRUBIN,TOTAL 0.5 MG/DL (0.1-1.0)
[2021-06-14 07:02] LABS: CREATININE SERUM 0.81 MG/DL (0.60-1.30)
[2021-06-14 07:05] LABS: MAGNESIUM 1.5 MG/DL (1.6-2.4)
[2021-06-14] MEDS ORDERED: MAGNESIUM 1 GM/100 ML IVPB 100 ML IV ONE (07:15)
[2021-06-14] MEDS ORDERED: IOHEXOL 350 MG/ML 150 ML (OMNIPAQUE 350) VIAL IV ONE (07:45)
[2021-06-14] MEDS ORDERED: NS 100 ML (IVPB) BAG IV ONE (07:45)
[2021-06-14] MEDS ORDERED: CATHETER FLUSH 10 ML SYR IV PRN (07:45)
[2021-06-14] MEDS ORDERED: HOLD METFORMIN - RECEIVED CONTRAST 20 ML VIAL IV SCH (07:45)
--- NOTE | 2021-06-14 07:45 | Diagnostic Imaging Report ---
EXAMINATION: CT angiography of the chest. TECHNIQUE: Contrast enhanced thin section helical images were obtained through the chest with intravenous contrast timed for the optimal opacification of the arterial structures per CTA protocol. Post-processing, reconstructions and interpretation of angiographic images of the vessels was performed. 3D MIP reconstructions were performed and reviewed. All CT scans use one or more of the following dose optimizing techniques: automated exposure control, MA and/or KvP adjustment based on a patient size and exam type, or iterative reconstruction. HISTORY: Shortness of breath and chest pain, COVID 19 COMPARISON: None available. FINDINGS: There are segmental pulmonary emboli in the right lower lobe. Segmental pulmonary emboli also present in the left upper lobe. No evidence of right heart strain. Mild patchy areas of groundglass in the lungs are consistent with history of COVID 19 pneumonia. No pleural effusion. No pneumothorax. No suspicious nodules. There is no axillary or supraclavicular lymphadenopathy. There is no mediastinal lymphadenopathy. Heart size is normal. There are moderate coronary artery calcifications. No pericardial effusion. Aorta is normal in caliber. Limited views of the upper abdomen show a large pancreatic tail mass invading the spleen. There are extensive metastatic lesions in the liver. They appear to have increased in size with a segment 4A lesion measuring 3.5 x 2.8 cm previously 2.5 x 2.5 cm. There is lucho hepatis lymphadenopathy. There are no suspicious osseus lesions. IMPRESSION: 1. Segmental pulmonary emboli in the right lower lobe and lingula without evidence of right heart strain. 2. Large pancreatic tail mass and metastatic liver lesions appear increased from prior exam. Critical findings called to Dr. Power by Dr. Clifton on 06/14/2021 at 7:42 AM. Dictated by: Dictated on workstation # [id number]
[2021-06-14] MEDS ORDERED: APIX5TAB PO (08:44)
[2021-06-14 09:00] VITALS: BP 125/77
[2021-06-14] MEDS ORDERED: ENOXAPARIN 80 MG/0.8 ML (LOVENOX) SYR SC ONE (09:00)
== END 2021-06-14 09:00 | disposition home or self-care (01) ==
LOC: EDUNIT# 06:13 → ER 06:15
DX: U07.1 COVID-19 (principal); I26.99 Other pulmonary embolism without acute cor pulmonale; E11.9 Type 2 diabetes mellitus without complications; Z86.718 Personal history of other venous thrombosis and embolism; Z79.84 Long term (current) use of oral hypoglycemic drugs; Z79.01 Long term (current) use of anticoagulants
CPT/HCPCS: 36415; 71045; 71275; 80053; 83690; 83735; 83874; 83880; 84484; 85025; 85379; 85610; 85730; 87804; 93005; 93041; 96372; 96374

== ENCOUNTER 2021-10-12 14:12 | Emergency (ER) | payer MEDICARE, OTHER ==
[~2021-10-12] VITALS: Ht 188 cm; Wt 136.0 kg
[~2021-10-12 14:12] MED LIST changes: +APIX5TAB PO
[2021-10-12] MEDS ORDERED: NS IV 1000 ML 1,000 ML IV SCH (14:30)
[2021-10-12] MEDS ORDERED: ONDANSETRON 4 MG/2 ML (SDV) Z0FRAN IVP ONE (14:30)
[2021-10-12] MEDS ORDERED: fentaNYL INJ 100 MCG/2 ML AMP IVP ONE (14:30)
--- NOTE | 2021-10-12 14:31 | ED Abdominal Pain ---
General Chief Complaint: Abdominal/GI Problems Stated Complaint: ABD PAIN - VOMITING Source of Information: Patient, Family () Exam Limitations: No Limitations History of Present Illness Date Seen by Provider: October 12, 2021 Time Seen by Provider: 14:20 Initial Comments Patient is a 65-year-old male with a history of liver/pancreatic cancer diagnosed in April of last year chief complaint abdominal pain and nausea and vomiting. Patient states that his vomiting started shortly after his last infusion of chemotherapy last week. He states the pain has steadily progressed throughout the week. He has been taking pain medicine and nausea medicine at home without any relief of symptoms. He states 1 day shortly after chemotherapy last week he had a fever up to 101 but it resolved on its own. He denies any black or bloody stools his last bowel movement was yesterday. No problems with urination. No URI symptoms. No hematemesis he is not short of breath. He de scribes the pain as sharp and stabbing localized in the lower abdomen more on the left. He has never had any surgeries on his abdomen. He does have an Umhhuu-u-Vscf. He had a colonoscopy about a year ago. No issues with that. Last oral intake was about 1230 today. He had cheese and some lemonade. Currently rates his pain at a "8". All other review of systems reviewed and negative except as stated. (per review of the medical record - patient also has a history of DVT was antiocoagulated on warfarin for a time - subsequently developed PE's in May of this year and was transitioned to Eliquis) Timing/Duration: 1 Week Severity/Quality: Sharp, Stabbing Location: Other (lower abdomen) Radiation: No Radiation Associated Symptoms: Nausea/Vomiting, Weakness Allergies and Home Medications Allergies Coded Allergies: morphine (Verified Allergy, Mild, rash, 11/25/17) Patient Home Medication List Home Medication List Reviewed: Yes Apixaban (Eliquis) 5 Mg Tablet, 5 MG PO BID Prescribed by: TROY FLORIAN on 06/14/21 0844 Glipizide (Glipizide) 10 Mg Tablet, 10 MG PO BID, (Reported) Entered as Reported by: KENRICK GARCIA on 11/25/17 2774 Levothyroxine Sodium (Levothyroxine Sodium) 175 Mcg Tablet, 175 MCG PO DAILY, (Reported) Entered as Reported by: KENRICK GARCIA on 11/25/17 1544 Metformin HCl (Metformin HCl) 1,000 Mg Tablet, 1,000 MG PO BID, (Reported) Entered as Reported by: KENRICK GARCIA on 11/25/17 1544 Oxycodone HCl/Acetaminophen (Percocet 5-325 mg Tablet) 1 Each Tablet, 1 TAB PO Q4H Prescribed by: GRANT BOYD on 05/07/21 1429 Promethazine HCl (Promethazine Tablet) 25 Mg Tablet, 25 MG PO Q8H PRN for NAUSEA/VOMITING Prescribed by: ELROY MAGALLON on 10/12/21 1651 Warfarin Sodium (Warfarin Sodium) 5 Mg Tablet, 5 MG PO HS, (Reported) Entered as Reported by: KENRICK GARCIA on 11/25/17 1544 Review of Systems Review of Systems Constitutional: see HPI EENTM: No Symptoms Reported Respiratory: No Symptoms Reported Cardiovascular: No Symptoms Reported Gastrointestinal: Abdominal Pain, Nausea, Poor Appetite, Vomiting Genitourinary: No Symptoms Reported Musculoskeletal: no symptoms reported Skin: no symptoms reported All Other Systems Reviewed Negative Unless Noted: Yes Past Kuopfxn-Hsekqs-Gbovqv Hx Immunizations Up To Date Tetanus Booster (TDap): Unknown Seasonal Allergies Seasonal Allergies: Yes Past Medical History Surgery/Hospitalization HX: HX LEG BLOOD CLOT RECENT DX OF PANCREATIC CA Surgeries: Yes (knee scope) Respiratory: Yes Pulmonary Embolism Cardiac: Yes Deep Vein Thrombosis, High Cholesterol Neurological: No Genitourinary: Yes Kidney Stones Gastrointestinal: No Musculoskeletal: No Endocrine: Yes Diabetes, Non-Insulin dep HEENT: No Loss of Vision: Denies Hearing Impairment: Denies Cancer: No Psychosocial: No Integumentary: No Blood Disorders: No Physical Exam Vital Signs Vital Signs - First Documented 10/12/21 14:18 Temp 36.1 Pulse 86 Resp 18 B/P (MAP) 136/77 (96) Pulse Ox 96 O2 Delivery Room Air Capillary Refill : Height/Weight/BMI Height: 6'1.00" Weight: 348lbs. oz. 157.745257ji; 37.00 BMI Method:Stated General Appearance: WD/WN, no apparent distress HEENT: PERRL/EOMI Respiratory: lungs clear, normal breath sounds, no respiratory distress, no a ccessory muscle use Cardiovascular: regular rate, rhythm, other (2+ radial pulses) Gastrointestinal: normal bowel sounds, soft, tenderness (Diffuse abdominal tenderness but seems to be more localized in the left lower quadrant), other (Soft reducible umbilical hernia. No obvious inguinal hernias. Scrotal examination was not performed.) Neurologic/Psychiatric: alert, normal mood/affect, oriented x 3 Skin: normal color, warm/dry Progress/Results/Core Measures Results/Orders Lab Results Laboratory Tests Test 10/12/21 14:59 10/12/21 15:24 Range/Units White Blood Count 4.1 L 4.3-11.0 10^3/uL Red Blood Count 2.81 L 4.30-5.52 10^6/uL Hemoglobin 10.8 L 13.3-17.7 g/dL Hematocrit 32 L 40-54 % Mean Corpuscular Volume 113 H 80-99 fL Mean Corpuscular Hemoglobin 38 H 25-34 pg Mean Corpuscular Hemoglobin Concent 34 32-36 g/dL Red Cell Distribution Width 15.9 H 10.0-14.5 % Platelet Count 132 130-400 10^3/uL Mean Platelet Volume 10.1 9.0-12.2 fL Immature Granulocyte % (Auto) 0 % Neutrophils (%) (Auto) 50 42-75 % Lymphocytes (%) (Auto) 37 12-44 % Monocytes (%) (Auto) 5 0-12 % Eosinophils (%) (Auto) 6 0-10 % Basophils (%) (Auto) 1 0-10 % Neutrophils # (Auto) 2.1 1.8-7.8 X 10^3 Lymphocytes # (Auto) 1.5 1.0-4.0 X 10^3 Monocytes # (Auto) 0.2 0.0-1.0 X 10^3 Eosinophils # (Auto) 0.2 0.0-0.3 10^3/uL Basophils # (Auto) 0.1 0.0-0.1 10^3/uL Immature Granulocyte # (Auto) 0.0 0.0-0.1 10^3/uL Sodium Level 135 135-145 MMOL/L Potassium Level 3.7 3.6-5.0 MMOL/L Chloride Level 105 98-107 MMOL/L Carbon Dioxide Level 22 21-32 MMOL/L Anion Gap 8 5-14 MMOL/L Blood Urea Nitrogen 10 7-18 MG/DL Creatinine 0.65 0.60-1.30 MG/DL Estimat Glomerular Filtration Rate 105 BUN/Creatinine Ratio 15 Glucose Level 172 H 70-105 MG/DL Calcium Level 8.8 8.5-10.1 MG/DL Corrected Calcium 9.4 8.5-10.1 MG/DL Total Bilirubin 0.4 0.1-1.0 MG/DL Aspartate Amino Transf (AST/SGOT) 27 5-34 U/L Alanine Aminotransferase (ALT/SGPT) 27 0-55 U/L Alkaline Phosphatase 84 40-136 U/L Total Protein 6.7 6.4-8.2 GM/DL Albumin 3.3 3.2-4.5 GM/DL Lipase 17 8-78 U/L Urine Color YELLOW Urine Clarity CLEAR Urine pH 6.0 5-9 Urine Specific Franklin >=1.030 1.016-1.022 Urine Protein NEGATIVE NEGATIVE Urine Glucose (UA) 1+ H NEGATIVE Urine Ketones NEGATIVE NEGATIVE Urine Nitrite NEGATIVE NEGATIVE Urine Bilirubin NEGATIVE NEGATIVE Urine Urobilinogen 1.0 < = 1.0 MG/DL Urine Leukocyte Esterase NEGATIVE NEGATIVE Urine RBC (Auto) NEGATIVE NEGATIVE Urine RBC 0-2 /HPF Urine WBC 0-2 /HPF Urine Squamous Epithelial Cells 2-5 /HPF Urine Crystals NONE /LPF Urine Bacteria NEGATIVE /HPF Urine Casts NONE /LPF Urine Mucus NEGATIVE /LPF Urine Culture Indicated NO My Orders Orders - ELROY MAGALLON MD Ed Iv/Invasive Line Start (10/12/21 14:26) Cbc With Automated Diff (10/12/21 14:26) Comprehensive Metabolic Panel (10/12/21 14:26) Lipase (10/12/21 14:26) Ua Culture If Indicated (10/12/21 14:26) Ns Iv 1000 Ml (Sodium Chloride 0.9%) (10/12/21 14:30) Fentanyl Inj (Sublimaze Injection) (10/12/21 14:30) Ondansetron Injection (Zofran Injectio (10/12/21 14:30) Ct Abdomen/Pelvis Wo (10/12/21 15:31) Medications Given in ED Current Medications Medications Dose Ordered Sig/Ashley Route Start Time Stop Time Status Last Admin Dose Admin Fentanyl Citrate 50 mcg ONCE ONCE IVP 10/12/21 14:30 10/12/21 14:31 DC 10/12/21 14:54 50 MCG Ondansetron HCl 8 mg ONCE ONCE IVP 10/12/21 14:30 10/12/21 14:31 DC 10/12/21 14:53 8 MG Vital Signs/I&O 10/12/21 14:18 Temp 36.1 Pulse 86 Resp 18 B/P (MAP) 136/77 (96) Pulse Ox 96 O2 Delivery Room Air Progress Progress Note : Time: 16:46 Progress Note Reassessed after IV fluids pain and nausea medications and labs and CTs have been completed. He is feeling better. Of note he is slightly dehydrated with his urine specific gravity being greater than 1.030. Labs otherwise actually look pretty good. CT showed nonspecific findings with no evidence of pathology in his inguinal hernias, no intra-abdominal pathology noted outside of known pre-existing disease. Patient is requesting something else different for nausea, will send promethazine. Otherwise they are going to follow-up with her cancer doctor and her primary care doctor. All questions have been sought and answered. Patient is stable for discharge. Initial ECG Impression Date: October 12, 2021 Departure Impression Primary Impression: Abdominal pain Qualified Codes: R10.32 - Left lower quadrant pain Disposition: 01 HOME, SELF-CARE Condition: Improved Departure-Patient Inst. Decision time for Depature: 16:49 Referrals: NO,LOCAL PHYSICIAN (PCP/Family) Primary Care Physician Patient Instructions: Abdominal Pain, Adult ED Add. Discharge Instructions: Drink plenty of fluids to stay well-hydrated. Continue your pain medications at home as needed. I have written you a prescription for promethazine you can take 1 every 6-8 hours as needed for nausea. This medication may make you sleepy. You should be taking [id number] Prilosec/omeprazole every single day. Please come back to the emergency room for reevaluation if you have worsening pain especially with any fever over 100.4, persistent nausea and vomiting, blood in your stool or vomit or any other emergent concerning symptoms. Please follow-up with your cancer doctor this week. Scripts Omeprazole (Omeprazole) 40 Mg Capsule. 40 MG PO DAILY, #30 CAP Prov: ELROY MAGALLON MD 10/12/21 Promethazine HCl (Promethazine Tablet) 25 Mg Tablet 25 MG PO Q8H PRN for NAUSEA/VOMITING, #20 TAB 0 Refills Prov: ELROY MAGALLON MD 10/12/21 ELROY MAGALLON MD October 12, 2021 14:31
[2021-10-12 15:02] LABS: BASOPHILS # (AUTO) 0.1 10^3/uL (0.0-0.1); BASOPHILS % (AUTO) 1 % (0-10); EOSINOPHILS # (AUTO) 0.2 10^3/uL (0.0-0.3); EOSINOPHILS % (AUTO) 6 % (0-10); HEMATOCRIT 32 % (40-54); HEMOGLOBIN 10.8 g/dL (13.3-17.7); LYMPHOCYTES # (AUTO) 1.5 X 10^3 (1.0-4.0); LYMPHOCYTES % (AUTO) 37 % (12-44); MEAN CORPUSCULAR HEMOGLOBIN 38 pg (25-34); MEAN CORPUSCULAR HGB CONC 34 g/dL (32-36); MEAN CORPUSCULAR VOLUME 113 fL (80-99); MEAN PLATELET VOLUME 10.1 fL (9.0-12.2); MONOCYTES # (AUTO) 0.2 X 10^3 (0.0-1.0); MONOCYTES % (AUTO) 5 % (0-12); NEUTROPHILS # (AUTO) 2.1 X 10^3 (1.8-7.8); NEUTROPHILS % (AUTO) 50 % (42-75); PLATELET COUNT 132 10^3/uL (130-400); WHITE BLOOD COUNT 4.1 10^3/uL (4.3-11.0)
[2021-10-12 15:16] LABS: ALBUMIN 3.3 GM/DL (3.2-4.5); POTASSIUM 3.7 MMOL/L (3.6-5.0)
[2021-10-12 15:17] LABS: CALCIUM 8.8 MG/DL (8.5-10.1)
[2021-10-12 15:19] LABS: TOTAL PROTEIN 6.7 GM/DL (6.4-8.2)
[2021-10-12 15:20] LABS: BILIRUBIN,TOTAL 0.4 MG/DL (0.1-1.0)
[2021-10-12 15:22] LABS: CREATININE SERUM 0.65 MG/DL (0.60-1.30)
[2021-10-12 15:30] LABS: BILIRUBIN,URINE NEGATIVE (NEGATIVE); CLARITY,URINE CLEAR; COLOR,URINE YELLOW; GLUCOSE, URINE (UA) 1+ (NEGATIVE); KETONES,URINE NEGATIVE (NEGATIVE); LEUKOCYTE ESTERASE ,URINE NEGATIVE (NEGATIVE); NITRITE,URINE NEGATIVE (NEGATIVE); PROTEIN,URINE NEGATIVE (NEGATIVE)
[2021-10-12 15:37] LABS: BACTERIA,URINE NEGATIVE /HPF; RBC,URINE 0-2 /HPF; WBC,URINE 0-2 /HPF
--- NOTE | 2021-10-12 16:30 | Diagnostic Imaging Report ---
PROCEDURE: CT abdomen and pelvis without contrast. TECHNIQUE: Multiple contiguous axial images were obtained through the abdomen and pelvis without the use of intravenous contrast. Auto Exposure Controls were utilized during the CT exam to meet ALARA standards for radiation dose reduction. INDICATION: Metastatic pancreatic cancer with abdominal pain, nausea and vomiting. Compared with abdominal pelvic CT 05/07/2021. FINDINGS: Multiple hypodense but solid-appearing liver masses are not clearly changed from correlated with the previous exam, comparison obtained included contrast increasing sensitivity at that study. The adrenals are negative. Heterogeneity and infiltration of the lower 3rd of the spleen is a redemonstrated finding. No perisplenic hemorrhage or subcapsular collection. The adrenals unremarkable. Renal cysts chronic. There is no hydroureteronephrosis. There is a fatty umbilical hernia, chronic. Noninflamed sigmoid diverticulosis, fatty, left greater than right. Inguinal hernia is noninflamed and chronic. There is no abdominal pelvic mesenteric or retroperitoneal lymphadenopathy. There is no bowel obstruction. No free air. No abscess or hemorrhage. No acute fluid collection. No acute bony pathology. Lung bases nonacute. IMPRESSION: Liver masses and infiltrative process is inseparable from the tail of the pancreas and splenic hilum redemonstrated, no new lesion identified. No lymphadenopathy. No bowel, biliary or urinary tract obstruction. No adverse development from prior contrast-enhanced studies. Fatty umbilical hernia. Noninflamed sigmoid diverticulosis as well as fatty left greater than right inguinal hernias chronic. Dictated by: Dictated on workstation # [id number]
[2021-10-12] MEDS ORDERED: PROM25TA14 PO (16:51)
[2021-10-12 17:00] VITALS: BP 130/86
[2021-10-12] MEDS ORDERED: OMEP40CA6 PO (17:49)
== END 2021-10-12 17:00 | disposition home or self-care (01) ==
LOC: EDUNIT# 14:12 → ER 14:13
DX: R10.32 Left lower quadrant pain (principal); R10.84 Generalized abdominal pain; C25.9 Malignant neoplasm of pancreas, unspecified; Z86.711 Personal history of pulmonary embolism; Z86.718 Personal history of other venous thrombosis and embolism; Z87.442 Personal history of urinary calculi; Z79.01 Long term (current) use of anticoagulants; Z95.9 Presence of cardiac and vascular implant and graft, unspecified
CPT/HCPCS: 36415; 74176; 80053; 81000; 83690; 85025

== ENCOUNTER → 2021-10-27 | Outpatient (RCR) | payer MEDICARE, OTHER ==
[2021-10-05 10:15] LABS: BASOPHILS # (AUTO) 0.1 10^3/uL (0.0-0.1); BASOPHILS % (AUTO) 1 % (0-10); EOSINOPHILS # (AUTO) 0.3 10^3/uL (0.0-0.3); EOSINOPHILS % (AUTO) 4 % (0-10); HEMATOCRIT 35 % (40-54); HEMOGLOBIN 11.5 g/dL (13.3-17.7); LYMPHOCYTES # (AUTO) 1.7 10^3/uL (1.0-4.0); LYMPHOCYTES % (AUTO) 27 % (12-44); MEAN CORPUSCULAR HEMOGLOBIN 38 pg (25-34); MEAN CORPUSCULAR HGB CONC 33 g/dL (32-36); MEAN CORPUSCULAR VOLUME 113 fL (80-99); MEAN PLATELET VOLUME 10.1 fL (9.0-12.2); MONOCYTES # (AUTO) 1.4 10^3/uL (0.0-1.0); MONOCYTES % (AUTO) 22 % (0-12); NEUTROPHILS # (AUTO) 2.8 10^3/uL (1.8-7.8); NEUTROPHILS % (AUTO) 45 % (42-75); PLATELET COUNT 232 10^3/uL (130-400); WHITE BLOOD COUNT 6.3 10^3/uL (4.3-11.0)
[2021-10-05 10:30] LABS: ALBUMIN 3.1 GM/DL (3.2-4.5); POTASSIUM 3.8 MMOL/L (3.6-5.0)
[2021-10-05 10:33] LABS: TOTAL PROTEIN 6.5 GM/DL (6.4-8.2)
[2021-10-05 10:34] LABS: BILIRUBIN,TOTAL 0.6 MG/DL (0.1-1.0)
[2021-10-05 10:36] LABS: CREATININE SERUM 0.66 MG/DL (0.60-1.30)
[2021-10-19 09:26] LABS: HEMOGLOBIN 11.4 g/dL (13.3-17.7); NEUTROPHILS # (AUTO) 0.9 10^3/uL (1.8-7.8)
[2021-10-19 09:28] LABS: BASOPHILS % (AUTO) 1 % (0-10); EOSINOPHILS # (AUTO) 0.5 10^3/uL (0.0-0.3); EOSINOPHILS % (AUTO) 14 % (0-10); HEMATOCRIT 34 % (40-54); LYMPHOCYTES # (AUTO) 1.3 10^3/uL (1.0-4.0); LYMPHOCYTES % (AUTO) 42 % (12-44); MEAN CORPUSCULAR HEMOGLOBIN 38 pg (25-34); MEAN CORPUSCULAR HGB CONC 34 g/dL (32-36); MEAN CORPUSCULAR VOLUME 112 fL (80-99); MEAN PLATELET VOLUME 10.7 fL (9.0-12.2); MONOCYTES # (AUTO) 0.5 10^3/uL (0.0-1.0); MONOCYTES % (AUTO) 15 % (0-12); NEUTROPHILS % (AUTO) 27 % (42-75); PLATELET COUNT 121 10^3/uL (130-400); WHITE BLOOD COUNT 3.1 10^3/uL (4.3-11.0)
[2021-10-19 09:49] LABS: ALBUMIN 3.2 GM/DL (3.2-4.5); BILIRUBIN,TOTAL 0.5 MG/DL (0.1-1.0); CALCIUM 9.4 MG/DL (8.5-10.1); CREATININE SERUM 0.71 MG/DL (0.60-1.30); POTASSIUM 3.9 MMOL/L (3.6-5.0); TOTAL PROTEIN 6.6 GM/DL (6.4-8.2)
[~2021-10-27] VITALS: Ht 188 cm; Wt 130.6 kg
[~2021-10-27] MED LIST changes: +ATROPINE INJ 0.4 MG/ML SDV IV SCH; +D5W 500 ML IV SOLUTION 500 ML IV SCH; +D5W IV SCH; +DEXAMETHASONE IV SCH; +FLUOROURACIL IV SCH; +FOSAPREPITANT (CANCER CENTER) 150 MG in NS (IVPB) CANCER CENTER ONLY 150 ML IV SCH; +HEParin (CENTRAL IV FLUSH) 500 UNIT/5 ML SYR IV PRN; +IRINOTECAN HCL IV SCH; +LEUCOVORIN CALCIUM IV SCH; +NS IV SCH; +OMEP40CA6 PO; +ONDANSETRON IV SCH; +OXALIPLATIN IV SCH; +PEGFILGRASTIM 6 MG/0.6 ML ONPRO KIT SQ SCH; +PROCHLORPERAZINE 10 MG TAB (COMPAZINE) PO SCH; +PROM25TA14 PO; +dexAMETHasone INJECTION 10 MG in NS (IVPB) 50 ML IV SCH
[2021-10-27 09:37] LABS: BASOPHILS # (AUTO) 0.1 10^3/uL (0.0-0.1); BASOPHILS % (AUTO) 1 % (0-10); EOSINOPHILS # (AUTO) 0.3 10^3/uL (0.0-0.3); EOSINOPHILS % (AUTO) 8 % (0-10); HEMATOCRIT 37 % (40-54); HEMOGLOBIN 12.7 g/dL (13.3-17.7); LYMPHOCYTES # (AUTO) 1.6 10^3/uL (1.0-4.0); LYMPHOCYTES % (AUTO) 37 % (12-44); MEAN CORPUSCULAR HEMOGLOBIN 38 pg (25-34); MEAN CORPUSCULAR HGB CONC 34 g/dL (32-36); MEAN CORPUSCULAR VOLUME 112 fL (80-99); MEAN PLATELET VOLUME 10.4 fL (9.0-12.2); MONOCYTES # (AUTO) 0.9 10^3/uL (0.0-1.0); MONOCYTES % (AUTO) 22 % (0-12); NEUTROPHILS # (AUTO) 1.4 10^3/uL (1.8-7.8); NEUTROPHILS % (AUTO) 32 % (42-75); PLATELET COUNT 171 10^3/uL (130-400); WHITE BLOOD COUNT 4.4 10^3/uL (4.3-11.0)
[2021-10-27 10:00] LABS: ALBUMIN 3.4 GM/DL (3.2-4.5)
[2021-10-27 10:01] LABS: CALCIUM 9.3 MG/DL (8.5-10.1)
[2021-10-27 10:02] LABS: TOTAL PROTEIN 7.1 GM/DL (6.4-8.2)
[2021-10-27 10:04] LABS: BILIRUBIN,TOTAL 0.5 MG/DL (0.1-1.0)
[2021-10-27 10:06] LABS: CREATININE SERUM 0.76 MG/DL (0.60-1.30)
== END | disposition home or self-care (01) ==
LOC: ONC 09-29 10:05
PROVIDERS: ATTEND Internal Medicine Hematology & Oncology
DX: Z51.11 Encounter for antineoplastic chemotherapy (principal); C25.9 Malignant neoplasm of pancreas, unspecified
CPT/HCPCS: 36591; 80053; 85025; 96360; 96367; 96368; 96375; 96411; 96413; 96416; 96417; 99213

== ENCOUNTER 2021-11-25 13:33 | Outpatient (RCR) | payer MEDICARE, OTHER ==
[2021-11-09 08:59] LABS: HEMATOCRIT 35 % (40-54); WHITE BLOOD COUNT 4.4 10^3/uL (4.3-11.0)
[2021-11-09 09:00] LABS: BASOPHILS # (AUTO) 0.1 10^3/uL (0.0-0.1); BASOPHILS % (AUTO) 1 % (0-10); EOSINOPHILS # (AUTO) 0.2 10^3/uL (0.0-0.3); EOSINOPHILS % (AUTO) 5 % (0-10); HEMOGLOBIN 12.1 g/dL (13.3-17.7); LYMPHOCYTES # (AUTO) 1.8 10^3/uL (1.0-4.0); LYMPHOCYTES % (AUTO) 40 % (12-44); MEAN CORPUSCULAR HEMOGLOBIN 38 pg (25-34); MEAN CORPUSCULAR HGB CONC 35 g/dL (32-36); MEAN CORPUSCULAR VOLUME 111 fL (80-99); MEAN PLATELET VOLUME 10.5 fL (9.0-12.2); MONOCYTES # (AUTO) 0.7 10^3/uL (0.0-1.0); MONOCYTES % (AUTO) 17 % (0-12); NEUTROPHILS # (AUTO) 1.6 10^3/uL (1.8-7.8); NEUTROPHILS % (AUTO) 36 % (42-75); PLATELET COUNT 142 10^3/uL (130-400)
[2021-11-09 09:28] LABS: ALBUMIN 3.4 GM/DL (3.2-4.5); BILIRUBIN,TOTAL 0.4 MG/DL (0.1-1.0); CALCIUM 9.3 MG/DL (8.5-10.1); CREATININE SERUM 0.76 MG/DL (0.60-1.30); POTASSIUM 3.7 MMOL/L (3.6-5.0)
[2021-11-23 09:24] LABS: BASOPHILS # (AUTO) 0.1 10^3/uL (0.0-0.1); BASOPHILS % (AUTO) 1 % (0-10); EOSINOPHILS # (AUTO) 0.1 10^3/uL (0.0-0.3); EOSINOPHILS % (AUTO) 1 % (0-10); HEMATOCRIT 34 % (40-54); LYMPHOCYTES # (AUTO) 1.9 10^3/uL (1.0-4.0); LYMPHOCYTES % (AUTO) 31 % (12-44); MEAN CORPUSCULAR HEMOGLOBIN 38 pg (25-34); MEAN CORPUSCULAR HGB CONC 35 g/dL (32-36); MEAN CORPUSCULAR VOLUME 110 fL (80-99); MEAN PLATELET VOLUME 10.5 fL (9.0-12.2); MONOCYTES # (AUTO) 1.1 10^3/uL (0.0-1.0); MONOCYTES % (AUTO) 18 % (0-12); NEUTROPHILS % (AUTO) 48 % (42-75); PLATELET COUNT 178 10^3/uL (130-400); WHITE BLOOD COUNT 6.2 10^3/uL (4.3-11.0)
[2021-11-23 09:48] LABS: ALBUMIN 3.2 GM/DL (3.2-4.5); BILIRUBIN,TOTAL 0.4 MG/DL (0.1-1.0); CALCIUM 9.1 MG/DL (8.5-10.1); CREATININE SERUM 0.71 MG/DL (0.60-1.30); POTASSIUM 3.6 MMOL/L (3.6-5.0); TOTAL PROTEIN 6.6 GM/DL (6.4-8.2)
[~2021-11-25 13:33] MED LIST changes: +NS IV 500 ML 500 ML ONE; -dexAMETHasone INJECTION 10 MG in NS (IVPB) 50 ML IV SCH
== END 2021-11-26 | disposition home or self-care (01) ==
LOC: ONC 13:33
PROVIDERS: ATTEND Internal Medicine Hematology & Oncology
DX: Z51.11 Encounter for antineoplastic chemotherapy (principal); C25.9 Malignant neoplasm of pancreas, unspecified; E78.5 Hyperlipidemia, unspecified; I10 Essential (primary) hypertension; E11.9 Type 2 diabetes mellitus without complications; Z92.21 Personal history of antineoplastic chemotherapy
CPT/HCPCS: 36591; 80053; 85025; 86301; 96360; 96361; 96367; 96368; 96372; 96375; 96413; 96417; 99213; J2506

== ENCOUNTER 2021-12-23 08:48 | Outpatient (RCR) | payer MEDICARE, OTHER ==
[2021-12-07 09:10] LABS: BASOPHILS % (AUTO) 1 % (0-10); EOSINOPHILS # (AUTO) 0.2 10^3/uL (0.0-0.3); EOSINOPHILS % (AUTO) 6 % (0-10); HEMATOCRIT 32 % (40-54); HEMOGLOBIN 11.3 g/dL (13.3-17.7); LYMPHOCYTES # (AUTO) 1.3 10^3/uL (1.0-4.0); LYMPHOCYTES % (AUTO) 45 % (12-44); MEAN CORPUSCULAR HEMOGLOBIN 38 pg (25-34); MEAN CORPUSCULAR HGB CONC 35 g/dL (32-36); MEAN CORPUSCULAR VOLUME 108 fL (80-99); MONOCYTES # (AUTO) 0.9 10^3/uL (0.0-1.0); MONOCYTES % (AUTO) 30 % (0-12); NEUTROPHILS # (AUTO) 0.5 10^3/uL (1.8-7.8); NEUTROPHILS % (AUTO) 18 % (42-75); PLATELET COUNT 150 10^3/uL (130-400); WHITE BLOOD COUNT 2.9 10^3/uL (4.3-11.0)
[2021-12-07 09:39] LABS: ALBUMIN 3.2 GM/DL (3.2-4.5); BILIRUBIN,TOTAL 0.6 MG/DL (0.1-1.0); CALCIUM 9.4 MG/DL (8.5-10.1); CREATININE SERUM 0.67 MG/DL (0.60-1.30); TOTAL PROTEIN 6.4 GM/DL (6.4-8.2)
[2021-12-09 12:34] LABS: BASOPHILS % (AUTO) 1 % (0-10); EOSINOPHILS # (AUTO) 0.2 10^3/uL (0.0-0.3); EOSINOPHILS % (AUTO) 4 % (0-10); HEMATOCRIT 34 % (40-54); HEMOGLOBIN 11.8 g/dL (13.3-17.7); LYMPHOCYTES # (AUTO) 2.1 10^3/uL (1.0-4.0); LYMPHOCYTES % (AUTO) 58 % (12-44); MEAN CORPUSCULAR HEMOGLOBIN 38 pg (25-34); MEAN CORPUSCULAR HGB CONC 34 g/dL (32-36); MEAN CORPUSCULAR VOLUME 110 fL (80-99); MEAN PLATELET VOLUME 9.9 fL (9.0-12.2); MONOCYTES # (AUTO) 0.4 10^3/uL (0.0-1.0); MONOCYTES % (AUTO) 10 % (0-12); NEUTROPHILS % (AUTO) 27 % (42-75); PLATELET COUNT 163 10^3/uL (130-400); WHITE BLOOD COUNT 3.6 10^3/uL (4.3-11.0)
[2021-12-16 11:42] LABS: HEMOGLOBIN 10.9 g/dL (13.3-17.7); MONOCYTES # (AUTO) 0.5 10^3/uL (0.0-1.0)
[2021-12-16 11:44] LABS: BASOPHILS # (AUTO) 0.1 10^3/uL (0.0-0.1); BASOPHILS % (AUTO) 2 % (0-10); EOSINOPHILS # (AUTO) 0.2 10^3/uL (0.0-0.3); EOSINOPHILS % (AUTO) 6 % (0-10); HEMATOCRIT 32 % (40-54); LYMPHOCYTES # (AUTO) 1.6 10^3/uL (1.0-4.0); LYMPHOCYTES % (AUTO) 48 % (12-44); MEAN CORPUSCULAR HEMOGLOBIN 38 pg (25-34); MEAN CORPUSCULAR HGB CONC 34 g/dL (32-36); MEAN CORPUSCULAR VOLUME 110 fL (80-99); MEAN PLATELET VOLUME 11.9 fL (9.0-12.2); MONOCYTES % (AUTO) 16 % (0-12); NEUTROPHILS # (AUTO) 0.9 10^3/uL (1.8-7.8); NEUTROPHILS % (AUTO) 29 % (42-75); PLATELET COUNT 68 10^3/uL (130-400); WHITE BLOOD COUNT 3.3 10^3/uL (4.3-11.0)
[2021-12-16 12:10] LABS: ALBUMIN 3.3 GM/DL (3.2-4.5); BILIRUBIN,TOTAL 0.5 MG/DL (0.1-1.0); CALCIUM 9.2 MG/DL (8.5-10.1); CREATININE SERUM 0.75 MG/DL (0.60-1.30); POTASSIUM 3.8 MMOL/L (3.6-5.0); TOTAL PROTEIN 6.6 GM/DL (6.4-8.2)
[2021-12-21 09:04] LABS: BASOPHILS # (AUTO) 0.1 10^3/uL (0.0-0.1); BASOPHILS % (AUTO) 1 % (0-10); EOSINOPHILS # (AUTO) 0.2 10^3/uL (0.0-0.3); EOSINOPHILS % (AUTO) 3 % (0-10); HEMATOCRIT 32 % (40-54); LYMPHOCYTES # (AUTO) 1.8 10^3/uL (1.0-4.0); LYMPHOCYTES % (AUTO) 30 % (12-44); MEAN CORPUSCULAR HEMOGLOBIN 39 pg (25-34); MEAN CORPUSCULAR HGB CONC 35 g/dL (32-36); MEAN CORPUSCULAR VOLUME 112 fL (80-99); MEAN PLATELET VOLUME 11.3 fL (9.0-12.2); MONOCYTES # (AUTO) 1.3 10^3/uL (0.0-1.0); MONOCYTES % (AUTO) 22 % (0-12); NEUTROPHILS # (AUTO) 2.6 10^3/uL (1.8-7.8); NEUTROPHILS % (AUTO) 43 % (42-75); PLATELET COUNT 106 10^3/uL (130-400); WHITE BLOOD COUNT 5.9 10^3/uL (4.3-11.0)
[2021-12-21 09:22] LABS: ALBUMIN 3.1 GM/DL (3.2-4.5); BILIRUBIN,TOTAL 0.5 MG/DL (0.1-1.0); CALCIUM 9.1 MG/DL (8.5-10.1); CREATININE SERUM 0.71 MG/DL (0.60-1.30); POTASSIUM 3.7 MMOL/L (3.6-5.0); TOTAL PROTEIN 6.3 GM/DL (6.4-8.2)
[~2021-12-23] VITALS: Ht 188 cm; Wt 129.7 kg
[~2021-12-23 08:48] MED LIST changes: +IRINOTECAN HCL IV ONE; +LEUCOVORIN CALCIUM IV ONE; +NS IV 1000 ML 1,000 ML IV SCH; +NS IV 1000 ML 1,000 ML ONE; -NS IV 500 ML 500 ML ONE; +NS IV ONE
== END 2021-12-27 | disposition home or self-care (01) ==
LOC: ONC 08:48
PROVIDERS: ATTEND Internal Medicine Hematology & Oncology
DX: Z51.11 Encounter for antineoplastic chemotherapy (principal); C25.9 Malignant neoplasm of pancreas, unspecified; E78.5 Hyperlipidemia, unspecified; I10 Essential (primary) hypertension; E11.9 Type 2 diabetes mellitus without complications
CPT/HCPCS: 36415; 36591; 80053; 85025; 96360; 96361; 96367; 96368; 96372; 96375; 96377; 96413; 96417; J2506

== ENCOUNTER → 2022-01-01 | Outpatient (CLI) | payer MEDICARE, OTHER ==
[~2022-01-01] MED LIST changes: -ATROPINE INJ 0.4 MG/ML SDV IV SCH; +CATHETER FLUSH 10 ML SYR IV PRN; -D5W 500 ML IV SOLUTION 500 ML IV SCH; -D5W IV SCH; -DEXAMETHASONE IV SCH; -FLUOROURACIL IV SCH; -FOSAPREPITANT (CANCER CENTER) 150 MG in NS (IVPB) CANCER CENTER ONLY 150 ML IV SCH; -HEParin (CENTRAL IV FLUSH) 500 UNIT/5 ML SYR IV PRN; +HOLD METFORMIN - RECEIVED CONTRAST 20 ML VIAL IV SCH; +IOHEXOL 350 MG/ML 100 ML (OMNIPAQUE 350) VIAL IV ONE; -IRINOTECAN HCL IV ONE; -IRINOTECAN HCL IV SCH; -LEUCOVORIN CALCIUM IV ONE; -LEUCOVORIN CALCIUM IV SCH; +NS 100 ML (IVPB) BAG IV ONE; -NS IV 1000 ML 1,000 ML IV SCH; -NS IV 1000 ML 1,000 ML ONE; -NS IV ONE; -NS IV SCH; -ONDANSETRON IV SCH; -OXALIPLATIN IV SCH; -PEGFILGRASTIM 6 MG/0.6 ML ONPRO KIT SQ SCH; -PROCHLORPERAZINE 10 MG TAB (COMPAZINE) PO SCH
[2022-01-01 11:43] LABS: CREATININE SERUM 0.73 MG/DL (0.60-1.30)
--- NOTE | 2022-01-01 15:33 | Diagnostic Imaging Report ---
PROCEDURE: CT of the chest and pelvis with contrast and CT of the abdomen with and without contrast. TECHNIQUE: Precontrast acquisitions were acquired through the abdomen. Multiple contiguous axial images were obtained through the chest, abdomen and pelvis after administration of intravenous contrast. Auto Exposure Controls were utilized during the CT exam to meet ALARA standards for radiation dose reduction. INDICATION: Pancreatic malignancy. COMPARED with CT abdomen and pelvis 10/12/2021. The most recent chest CT 06/14/2021. CHEST: A 6 mm nodule left upper lobe image 39, unchanged from prior. No new lung mass. No spiculated lesion. There is no axillary, hilar or mediastinal lymphadenopathy and no acute or suspect chest wall abnormality. The aorta is nonaneurysmal. There is a central venous catheter tip in the lower SVC. There are coronary artery atherosclerotic vascular calcifications. There is a trace pericardial effusion inferiorly of only a few millimeters. ABDOMEN PELVIS: Low density but solid liver masses are presumptively metastatic. Lesions were more numerous and larger on the previous exam despite the prior limited by the absence of contrast. Today, the largest mass in the right hepatic lobe measures 2.2 cm, previously 2.5 cm. The smaller lesions showed a more substantial reduction. Abnormal soft tissue infiltration in the left upper quadrant causes the pancreatic tail and the splenic hilum as well as the lower 3rd of the spleen become inseparable consistent with infiltrating tumor which showed no clear change from the previous exam. The largest measurable discrete mass at that level is 4.4 x 3.4 cm. The adrenal glands are negative. Pancreatic body, neck and head unremarkable. No findings of acute fluid collection or acute pancreatitis. A thin right upper quadrant portacaval lymph node with a short axis 1.1 cm, unchanged. No convincing pathological abdominal pelvic mesenteric or retroperitoneal adenopathy is found. There is sigmoid diverticulosis without diverticulitis. There is no ileus or bowel obstruction. A fatty umbilical hernia chronic. There are renal cysts without hydroureteronephrosis. The aortoiliac and mesenteric vessels patent and nonaneurysmal. There is no ascites. IMPRESSION: CHEST: 1. A 6 mm left upper lobe lung nodule, stable, indeterminate. No new mass or adenopathy. ABDOMEN PELVIS: 1. At least mild interval improvements in multifocal hepatic metastatic disease; however, tumor at the pancreatic tail infiltrating the spleen and inseparable from its hilus showed no significant change. 2. Equivocal right upper quadrant portacaval lymph nodes, stable. 3. Additional nonmalignant chronic findings, unchanged as described. Dictated by: Dictated on workstation # [id number]
== END ==
LOC: RAD 11:09
PROVIDERS: ATTEND Internal Medicine Hematology & Oncology
DX: C25.9 Malignant neoplasm of pancreas, unspecified (principal); C78.7 Secondary malignant neoplasm of liver and intrahepatic bile duct
CPT/HCPCS: 36415; 71260; 74178; 82565; 84520

== ENCOUNTER 2022-01-26 10:19 | Outpatient (RCR) | payer MEDICARE, OTHER ==
[2022-01-04 09:18] LABS: BASOPHILS # (AUTO) 0.1 10^3/uL (0.0-0.1); BASOPHILS % (AUTO) 1 % (0-10); EOSINOPHILS # (AUTO) 0.2 10^3/uL (0.0-0.3); EOSINOPHILS % (AUTO) 3 % (0-10); HEMATOCRIT 32 % (40-54); LYMPHOCYTES # (AUTO) 1.9 10^3/uL (1.0-4.0); LYMPHOCYTES % (AUTO) 31 % (12-44); MEAN CORPUSCULAR HEMOGLOBIN 38 pg (25-34); MEAN CORPUSCULAR HGB CONC 35 g/dL (32-36); MEAN CORPUSCULAR VOLUME 110 fL (80-99); MEAN PLATELET VOLUME 10.8 fL (9.0-12.2); MONOCYTES # (AUTO) 1.3 10^3/uL (0.0-1.0); MONOCYTES % (AUTO) 21 % (0-12); NEUTROPHILS # (AUTO) 2.5 10^3/uL (1.8-7.8); NEUTROPHILS % (AUTO) 42 % (42-75); PLATELET COUNT 161 10^3/uL (130-400)
[2022-01-04 09:34] LABS: ALBUMIN 3.1 GM/DL (3.2-4.5); BILIRUBIN,TOTAL 0.7 MG/DL (0.1-1.0); CALCIUM 8.8 MG/DL (8.5-10.1); CREATININE SERUM 0.7 MG/DL (0.60-1.30); POTASSIUM 3.8 MMOL/L (3.6-5.0); TOTAL PROTEIN 6.3 GM/DL (6.4-8.2)
[2022-01-06 12:43] LABS: INR 1.4 (0.8-1.4); PROTHROMBIN TIME PATIENT 17.7 SEC (12.2-14.7)
[2022-01-18 16:27] LABS: BASOPHILS # (AUTO) 0.1 10^3/uL (0.0-0.1); BASOPHILS % (AUTO) 1 % (0-10); EOSINOPHILS # (AUTO) 0.2 10^3/uL (0.0-0.3); EOSINOPHILS % (AUTO) 4 % (0-10); HEMATOCRIT 33 % (40-54); HEMOGLOBIN 11.1 g/dL (13.3-17.7); LYMPHOCYTES % (AUTO) 32 % (12-44); MEAN CORPUSCULAR HEMOGLOBIN 38 pg (25-34); MEAN CORPUSCULAR HGB CONC 34 g/dL (32-36); MEAN CORPUSCULAR VOLUME 111 fL (80-99); MEAN PLATELET VOLUME 11.3 fL (9.0-12.2); MONOCYTES # (AUTO) 1.2 10^3/uL (0.0-1.0); MONOCYTES % (AUTO) 20 % (0-12); NEUTROPHILS # (AUTO) 2.6 10^3/uL (1.8-7.8); NEUTROPHILS % (AUTO) 42 % (42-75); PLATELET COUNT 150 10^3/uL (130-400); WHITE BLOOD COUNT 6.2 10^3/uL (4.3-11.0)
[2022-01-18 16:35] LABS: INR 1.3 (0.8-1.4)
[2022-01-22 12:01] LABS: INR 1.6 (0.8-1.4); PROTHROMBIN TIME PATIENT 19.8 SEC (12.2-14.7)
[~2022-01-26 10:19] MED LIST changes: +ATROPINE INJ 0.4 MG/ML SDV IV SCH; -CATHETER FLUSH 10 ML SYR IV PRN; +D5W 500 ML IV SOLUTION 500 ML IV SCH; +D5W IV SCH; +DEXAMETHASONE IV SCH; +FLUOROURACIL IV SCH; +FOSAPREPITANT (CANCER CENTER) 150 MG in NS (IVPB) CANCER CENTER ONLY 150 ML IV SCH; +HEParin (CENTRAL IV FLUSH) 500 UNIT/5 ML SYR IV PRN; -HOLD METFORMIN - RECEIVED CONTRAST 20 ML VIAL IV SCH; -IOHEXOL 350 MG/ML 100 ML (OMNIPAQUE 350) VIAL IV ONE; +IRINOTECAN HCL IV SCH; +LEUCOVORIN CALCIUM IV SCH; -NS 100 ML (IVPB) BAG IV ONE; +NS IV 1000 ML 1,000 ML IV SCH; +NS IV SCH; +ONDANSETRON IV SCH; +OXALIPLATIN IV SCH; +PEGFILGRASTIM 6 MG/0.6 ML ONPRO KIT SQ SCH; +PROCHLORPERAZINE 10 MG TAB (COMPAZINE) PO SCH
[2022-01-26 10:54] LABS: INR 1.7 (0.8-1.4); PROTHROMBIN TIME PATIENT 20.1 SEC (12.2-14.7)
== END 2022-01-27 | disposition still patient (30) ==
LOC: ONC 10:19
PROVIDERS: ATTEND Internal Medicine Hematology & Oncology
DX: Z51.11 Encounter for antineoplastic chemotherapy (principal); Z45.2 Encounter for adjustment and management of vascular access device; C25.9 Malignant neoplasm of pancreas, unspecified; E78.5 Hyperlipidemia, unspecified; I10 Essential (primary) hypertension; E11.9 Type 2 diabetes mellitus without complications
CPT/HCPCS: 36415; 36591; 80053; 85025; 85610; 86301; 96360; 96361; 96367; 96375; 96377; 96413; 96417; J2506

== ENCOUNTER 2022-02-24 12:07 | Outpatient (RCR) | payer MEDICARE, OTHER ==
[2022-02-02 13:42] LABS: INR 1.9 (0.8-1.4); PROTHROMBIN TIME PATIENT 22.3 SEC (12.2-14.7)
[2022-02-16 09:41] LABS: BASOPHILS # (AUTO) 0.1 10^3/uL (0.0-0.1); BASOPHILS % (AUTO) 1 % (0-10); EOSINOPHILS # (AUTO) 0.5 10^3/uL (0.0-0.3); EOSINOPHILS % (AUTO) 10 % (0-10); HEMATOCRIT 40 % (40-54); HEMOGLOBIN 13.7 g/dL (13.3-17.7); LYMPHOCYTES # (AUTO) 1.6 10^3/uL (1.0-4.0); LYMPHOCYTES % (AUTO) 33 % (12-44); MEAN CORPUSCULAR HEMOGLOBIN 39 pg (25-34); MEAN CORPUSCULAR HGB CONC 34 g/dL (32-36); MEAN CORPUSCULAR VOLUME 114 fL (80-99); MEAN PLATELET VOLUME 10.7 fL (9.0-12.2); MONOCYTES # (AUTO) 0.6 10^3/uL (0.0-1.0); MONOCYTES % (AUTO) 12 % (0-12); NEUTROPHILS # (AUTO) 2.1 10^3/uL (1.8-7.8); NEUTROPHILS % (AUTO) 44 % (42-75); PLATELET COUNT 141 10^3/uL (130-400); WHITE BLOOD COUNT 4.7 10^3/uL (4.3-11.0)
[2022-02-16 09:49] LABS: INR 2.3 (0.8-1.4); PROTHROMBIN TIME PATIENT 25.7 SEC (12.2-14.7)
[2022-02-16 09:57] LABS: ALBUMIN 3.3 GM/DL (3.2-4.5); BILIRUBIN,TOTAL 1.3 MG/DL (0.1-1.0); CALCIUM 9.4 MG/DL (8.5-10.1); CREATININE SERUM 0.78 MG/DL (0.60-1.30); POTASSIUM 3.8 MMOL/L (3.6-5.0); TOTAL PROTEIN 7.2 GM/DL (6.4-8.2)
[2022-02-22 09:15] LABS: BASOPHILS # (AUTO) 0.1 10^3/uL (0.0-0.1); HEMOGLOBIN 13.2 g/dL (13.3-17.7); LYMPHOCYTES % (AUTO) 35 % (12-44); MEAN PLATELET VOLUME 10.4 fL (9.0-12.2)
[2022-02-22 09:17] LABS: BASOPHILS % (AUTO) 1 % (0-10); EOSINOPHILS # (AUTO) 0.4 10^3/uL (0.0-0.3); EOSINOPHILS % (AUTO) 8 % (0-10); HEMATOCRIT 38 % (40-54); LYMPHOCYTES # (AUTO) 1.7 10^3/uL (1.0-4.0); MEAN CORPUSCULAR HEMOGLOBIN 39 pg (25-34); MEAN CORPUSCULAR HGB CONC 35 g/dL (32-36); MEAN CORPUSCULAR VOLUME 111 fL (80-99); MONOCYTES # (AUTO) 0.7 10^3/uL (0.0-1.0); MONOCYTES % (AUTO) 14 % (0-12); NEUTROPHILS # (AUTO) 2.1 10^3/uL (1.8-7.8); NEUTROPHILS % (AUTO) 43 % (42-75); PLATELET COUNT 139 10^3/uL (130-400); WHITE BLOOD COUNT 4.9 10^3/uL (4.3-11.0)
[2022-02-22 09:37] LABS: ALBUMIN 3.2 GM/DL (3.2-4.5); CALCIUM 9.2 MG/DL (8.5-10.1); CREATININE SERUM 0.79 MG/DL (0.60-1.30); POTASSIUM 4.1 MMOL/L (3.6-5.0); TOTAL PROTEIN 7.1 GM/DL (6.4-8.2)
[2022-02-22 10:02] LABS: INR 2.3 (0.8-1.4)
== END 2022-02-25 09:03 | disposition home or self-care (01) ==
LOC: ONC 12:07
PROVIDERS: ATTEND Internal Medicine Hematology & Oncology
DX: Z51.11 Encounter for antineoplastic chemotherapy (principal); C25.9 Malignant neoplasm of pancreas, unspecified; E78.5 Hyperlipidemia, unspecified; I10 Essential (primary) hypertension; E11.9 Type 2 diabetes mellitus without complications
CPT/HCPCS: 36415; 36591; 80053; 85025; 85610; 96360; 96361; 96367; 96368; 96375; 96377; 96413; 96415; 96417; 99213; J2506

== ENCOUNTER → 2022-03-18 | Outpatient (CLI) | payer MEDICARE, OTHER ==
[~2022-03-18] MED LIST changes: -ATROPINE INJ 0.4 MG/ML SDV IV SCH; +CATHETER FLUSH 10 ML SYR IV PRN; -D5W 500 ML IV SOLUTION 500 ML IV SCH; -D5W IV SCH; -DEXAMETHASONE IV SCH; -FLUOROURACIL IV SCH; -FOSAPREPITANT (CANCER CENTER) 150 MG in NS (IVPB) CANCER CENTER ONLY 150 ML IV SCH; -HEParin (CENTRAL IV FLUSH) 500 UNIT/5 ML SYR IV PRN; +IOHEXOL 350 MG/ML 100 ML (OMNIPAQUE 350) VIAL IV ONE; -IRINOTECAN HCL IV SCH; -LEUCOVORIN CALCIUM IV SCH; +NS 100 ML (IVPB) BAG IV ONE; -NS IV 1000 ML 1,000 ML IV SCH; -NS IV SCH; -ONDANSETRON IV SCH; -OXALIPLATIN IV SCH; -PEGFILGRASTIM 6 MG/0.6 ML ONPRO KIT SQ SCH; -PROCHLORPERAZINE 10 MG TAB (COMPAZINE) PO SCH
--- NOTE | 2022-03-18 11:23 | Diagnostic Imaging Report ---
PROCEDURE: CT chest, abdomen, and pelvis with contrast. TECHNIQUE: Multiple contiguous axial images were obtained through the chest, abdomen, and pelvis after the administration of intravenous contrast. Auto Exposure Controls were utilized during the CT exam to meet ALARA standards for radiation dose reduction. INDICATION: Pancreatic carcinoma, follow-up. Correlation is made with prior CT from 01/01/2022. CT CHEST: A right chest wall port has tip at the SVC right atrial junction. No axillary lymphadenopathy is detected. No definite mediastinal or hilar lymphadenopathy is detected. There is no pericardial or pleural fluid identified. 6 mm nodule left upper lobe is stable. No new pulmonary mass is detected. CT abdomen and pelvis: Subtle low-attenuation but solid-appearing hepatic masses appears stable to perhaps slightly less prominent when compared with prior imaging. No new lesion is seen. Gallbladder is unremarkable. There is no biliary ductal dilatation. The pancreatic tail mass inseparable from the splenic hilum appears to be fairly stable. This again appears to be somewhat infiltrative and inseparable from the portions of the spleen. Pancreatic head and body are unremarkable. No adrenal mass is detected. Right kidney is unremarkable. Left kidney contains cortical low-attenuation lesions consistent with cysts. Aorta is nonaneurysmal. Small and large bowel loops are normal caliber. There is diverticulosis of the sigmoid colon but no evidence of acute vasculitis. There is a fat-containing umbilical hernia. No free fluid or fluid collection is seen. The bladder and prostate are unremarkable. There is a large fat-containing left inguinal hernia. No pelvic lymphadenopathy is seen. No definite abdominal lymphadenopathy is detected. IMPRESSION: Overall stable CT abdomen and pelvis since 01/01/2022. Low-attenuation hepatic lesions are stable to perhaps slightly less prominent on today's study. No new liver mass is identified. Known infiltrating pancreatic tail mass inseparable from portions of the spleen also appears to be fairly stable. Dictated by: Dictated on workstation # [id number]
== END ==
LOC: RAD 09:15
PROVIDERS: ATTEND Internal Medicine Hematology & Oncology
DX: C25.9 Malignant neoplasm of pancreas, unspecified (principal); K76.9 Liver disease, unspecified
CPT/HCPCS: 71260; 74177

== ENCOUNTER 2022-03-24 10:22 | Outpatient (RCR) | payer MEDICARE, OTHER ==
[2022-03-02 09:36] LABS: BASOPHILS % (AUTO) 1 % (0-10)
[2022-03-02 09:38] LABS: EOSINOPHILS # (AUTO) 0.2 10^3/uL (0.0-0.3); EOSINOPHILS % (AUTO) 9 % (0-10); HEMATOCRIT 38 % (40-54); LYMPHOCYTES % (AUTO) 55 % (12-44); MEAN CORPUSCULAR HEMOGLOBIN 39 pg (25-34); MEAN CORPUSCULAR HGB CONC 35 g/dL (32-36); MEAN CORPUSCULAR VOLUME 111 fL (80-99); MEAN PLATELET VOLUME 12.1 fL (9.0-12.2); MONOCYTES # (AUTO) 0.1 10^3/uL (0.0-1.0); MONOCYTES % (AUTO) 7 % (0-12); NEUTROPHILS # (AUTO) 0.5 10^3/uL (1.8-7.8); NEUTROPHILS % (AUTO) 27 % (42-75); WHITE BLOOD COUNT 1.8 10^3/uL (4.3-11.0)
[2022-03-02 09:39] LABS: PLATELET COUNT 47 10^3/uL (130-400)
[2022-03-02 09:51] LABS: INR 2.4 (0.8-1.4); PROTHROMBIN TIME PATIENT 26.9 SEC (12.2-14.7)
[2022-03-02 10:00] LABS: ALBUMIN 3.4 GM/DL (3.2-4.5); BILIRUBIN,TOTAL 0.8 MG/DL (0.1-1.0); CALCIUM 9.4 MG/DL (8.5-10.1); CREATININE SERUM 0.81 MG/DL (0.60-1.30); POTASSIUM 3.7 MMOL/L (3.6-5.0); TOTAL PROTEIN 7.2 GM/DL (6.4-8.2)
[2022-03-05 13:25] LABS: NEUTROPHILS % (AUTO) 19 % (42-75)
[2022-03-05 13:27] LABS: BASOPHILS % (AUTO) 2 % (0-10); EOSINOPHILS # (AUTO) 0.1 10^3/uL (0.0-0.3); EOSINOPHILS % (AUTO) 5 % (0-10); HEMATOCRIT 35 % (40-54); HEMOGLOBIN 12.2 g/dL (13.3-17.7); LYMPHOCYTES # (AUTO) 1.7 10^3/uL (1.0-4.0); LYMPHOCYTES % (AUTO) 65 % (12-44); MEAN CORPUSCULAR HEMOGLOBIN 39 pg (25-34); MEAN CORPUSCULAR HGB CONC 35 g/dL (32-36); MEAN CORPUSCULAR VOLUME 110 fL (80-99); MEAN PLATELET VOLUME 12.7 fL (9.0-12.2); MONOCYTES # (AUTO) 0.2 10^3/uL (0.0-1.0); MONOCYTES % (AUTO) 9 % (0-12); NEUTROPHILS # (AUTO) 0.5 10^3/uL (1.8-7.8); WHITE BLOOD COUNT 2.6 10^3/uL (4.3-11.0)
[2022-03-05 13:58] LABS: PLATELET COUNT 35 10^3/uL (130-400)
[2022-03-05 14:12] LABS: INR 2.2 (0.8-1.4); PROTHROMBIN TIME PATIENT 24.6 SEC (12.2-14.7)
[2022-03-08 09:31] LABS: BASOPHILS % (AUTO) 1 % (0-10); EOSINOPHILS # (AUTO) 0.2 10^3/uL (0.0-0.3); EOSINOPHILS % (AUTO) 4 % (0-10); HEMATOCRIT 34 % (40-54); LYMPHOCYTES # (AUTO) 1.6 10^3/uL (1.0-4.0); LYMPHOCYTES % (AUTO) 48 % (12-44); MEAN CORPUSCULAR HEMOGLOBIN 39 pg (25-34); MEAN CORPUSCULAR HGB CONC 36 g/dL (32-36); MEAN CORPUSCULAR VOLUME 109 fL (80-99); MEAN PLATELET VOLUME 12.1 fL (9.0-12.2); MONOCYTES # (AUTO) 0.7 10^3/uL (0.0-1.0); MONOCYTES % (AUTO) 19 % (0-12); NEUTROPHILS % (AUTO) 28 % (42-75); PLATELET COUNT 60 10^3/uL (130-400); WHITE BLOOD COUNT 3.4 10^3/uL (4.3-11.0)
[2022-03-08 09:46] LABS: INR 2.1 (0.8-1.4); PROTHROMBIN TIME PATIENT 24.2 SEC (12.2-14.7)
[2022-03-08 09:54] LABS: ALBUMIN 3.1 GM/DL (3.2-4.5); BILIRUBIN,TOTAL 0.6 MG/DL (0.1-1.0); CREATININE SERUM 0.75 MG/DL (0.60-1.30); POTASSIUM 3.8 MMOL/L (3.6-5.0); TOTAL PROTEIN 6.6 GM/DL (6.4-8.2)
[2022-03-12 11:28] LABS: BASOPHILS # (AUTO) 0.1 10^3/uL (0.0-0.1); BASOPHILS % (AUTO) 2 % (0-10); EOSINOPHILS # (AUTO) 0.1 10^3/uL (0.0-0.3); EOSINOPHILS % (AUTO) 3 % (0-10); HEMATOCRIT 38 % (40-54); HEMOGLOBIN 13.1 g/dL (13.3-17.7); LYMPHOCYTES # (AUTO) 1.8 10^3/uL (1.0-4.0); LYMPHOCYTES % (AUTO) 43 % (12-44); MEAN CORPUSCULAR HEMOGLOBIN 38 pg (25-34); MEAN CORPUSCULAR HGB CONC 35 g/dL (32-36); MEAN CORPUSCULAR VOLUME 110 fL (80-99); MONOCYTES # (AUTO) 0.8 10^3/uL (0.0-1.0); MONOCYTES % (AUTO) 20 % (0-12); NEUTROPHILS # (AUTO) 1.3 10^3/uL (1.8-7.8); NEUTROPHILS % (AUTO) 32 % (42-75); PLATELET COUNT 142 10^3/uL (130-400); WHITE BLOOD COUNT 4.1 10^3/uL (4.3-11.0)
[2022-03-12 11:45] LABS: PROTHROMBIN TIME PATIENT 23.5 SEC (12.2-14.7)
[2022-03-12 11:50] LABS: ALBUMIN 3.2 GM/DL (3.2-4.5); BILIRUBIN,TOTAL 0.6 MG/DL (0.1-1.0); CALCIUM 9.2 MG/DL (8.5-10.1); CREATININE SERUM 0.82 MG/DL (0.60-1.30); TOTAL PROTEIN 6.8 GM/DL (6.4-8.2)
[2022-03-22 09:10] LABS: BASOPHILS # (AUTO) 0.1 10^3/uL (0.0-0.1); BASOPHILS % (AUTO) 2 % (0-10); EOSINOPHILS # (AUTO) 0.1 10^3/uL (0.0-0.3); EOSINOPHILS % (AUTO) 1 % (0-10); HEMATOCRIT 37 % (40-54); HEMOGLOBIN 12.8 g/dL (13.3-17.7); LYMPHOCYTES # (AUTO) 1.5 10^3/uL (1.0-4.0); LYMPHOCYTES % (AUTO) 31 % (12-44); MEAN CORPUSCULAR HEMOGLOBIN 38 pg (25-34); MEAN CORPUSCULAR HGB CONC 35 g/dL (32-36); MEAN CORPUSCULAR VOLUME 109 fL (80-99); MEAN PLATELET VOLUME 9.7 fL (9.0-12.2); MONOCYTES # (AUTO) 1.2 10^3/uL (0.0-1.0); MONOCYTES % (AUTO) 24 % (0-12); NEUTROPHILS % (AUTO) 42 % (42-75); PLATELET COUNT 245 10^3/uL (130-400); WHITE BLOOD COUNT 4.9 10^3/uL (4.3-11.0)
[2022-03-22 09:25] LABS: ALBUMIN 3.1 GM/DL (3.2-4.5); POTASSIUM 3.9 MMOL/L (3.6-5.0)
[2022-03-22 09:26] LABS: CALCIUM 8.9 MG/DL (8.5-10.1)
[2022-03-22 09:27] LABS: TOTAL PROTEIN 6.7 GM/DL (6.4-8.2)
[2022-03-22 09:29] LABS: BILIRUBIN,TOTAL 0.7 MG/DL (0.1-1.0)
[2022-03-22 09:31] LABS: CREATININE SERUM 0.78 MG/DL (0.60-1.30)
[~2022-03-24 10:22] MED LIST changes: +ATROPINE INJ 0.4 MG/ML SDV IV SCH; -CATHETER FLUSH 10 ML SYR IV PRN; +D5W 500 ML IV SOLUTION 500 ML IV SCH; +D5W IV SCH; +DEXAMETHASONE IV SCH; +FLUOROURACIL IV SCH; +FOSAPREPITANT (CANCER CENTER) 150 MG in NS (IVPB) CANCER CENTER ONLY 150 ML IV SCH; +HEParin (CENTRAL IV FLUSH) 500 UNIT/5 ML SYR IV PRN; -IOHEXOL 350 MG/ML 100 ML (OMNIPAQUE 350) VIAL IV ONE; +IRINOTECAN HCL IV SCH; +LEUCOVORIN CALCIUM IV SCH; -NS 100 ML (IVPB) BAG IV ONE; +NS IV 1000 ML 1,000 ML ONE; +NS IV SCH; +ONDANSETRON IV SCH; +OXALIPLATIN IV SCH; +PEGFILGRASTIM 6 MG/0.6 ML ONPRO KIT SQ SCH; +PROCHLORPERAZINE 10 MG TAB (COMPAZINE) PO SCH
== END 2022-03-29 | disposition home or self-care (01) ==
LOC: ONC 10:22
PROVIDERS: ATTEND Internal Medicine Hematology & Oncology
DX: C25.9 Malignant neoplasm of pancreas, unspecified (principal); E11.9 Type 2 diabetes mellitus without complications; E78.5 Hyperlipidemia, unspecified; I10 Essential (primary) hypertension
CPT/HCPCS: 80053; 85025; 85610; 86301; G0463; 36415; 36591; 96360; 96361; 96367; 96368; 96375; 96413; 96415; 96417; 99213; J2506

== ENCOUNTER 2022-04-21 12:48 | Outpatient (RCR) | payer MEDICARE, OTHER ==
[2022-04-05 09:14] LABS: LYMPHOCYTES # (AUTO) 1.8 10^3/uL (1.0-4.0)
[2022-04-05 09:16] LABS: BASOPHILS # (AUTO) 0.1 10^3/uL (0.0-0.1); BASOPHILS % (AUTO) 1 % (0-10); EOSINOPHILS # (AUTO) 0.4 10^3/uL (0.0-0.3); EOSINOPHILS % (AUTO) 7 % (0-10); HEMATOCRIT 36 % (40-54); HEMOGLOBIN 12.6 g/dL (13.3-17.7); LYMPHOCYTES % (AUTO) 34 % (12-44); MEAN CORPUSCULAR HEMOGLOBIN 37 pg (25-34); MEAN CORPUSCULAR HGB CONC 35 g/dL (32-36); MEAN CORPUSCULAR VOLUME 107 fL (80-99); MEAN PLATELET VOLUME 10.5 fL (9.0-12.2); MONOCYTES # (AUTO) 0.9 10^3/uL (0.0-1.0); MONOCYTES % (AUTO) 16 % (0-12); NEUTROPHILS # (AUTO) 2.2 10^3/uL (1.8-7.8); NEUTROPHILS % (AUTO) 42 % (42-75); PLATELET COUNT 139 10^3/uL (130-400); WHITE BLOOD COUNT 5.3 10^3/uL (4.3-11.0)
[2022-04-05 09:35] LABS: ALBUMIN 2.5 GM/DL (3.2-4.5); BILIRUBIN,TOTAL 0.3 MG/DL (0.1-1.0); CALCIUM 7.1 MG/DL (8.5-10.1); CREATININE SERUM 0.56 MG/DL (0.60-1.30)
[2022-04-19 09:07] LABS: BASOPHILS # (AUTO) 0.1 10^3/uL (0.0-0.1); BASOPHILS % (AUTO) 1 % (0-10); EOSINOPHILS # (AUTO) 0.2 10^3/uL (0.0-0.3); EOSINOPHILS % (AUTO) 4 % (0-10); HEMATOCRIT 38 % (40-54); HEMOGLOBIN 13.4 g/dL (13.3-17.7); LYMPHOCYTES # (AUTO) 1.9 10^3/uL (1.0-4.0); LYMPHOCYTES % (AUTO) 31 % (12-44); MEAN CORPUSCULAR HEMOGLOBIN 37 pg (25-34); MEAN CORPUSCULAR HGB CONC 35 g/dL (32-36); MEAN CORPUSCULAR VOLUME 106 fL (80-99); MEAN PLATELET VOLUME 10.3 fL (9.0-12.2); MONOCYTES # (AUTO) 1.2 10^3/uL (0.0-1.0); MONOCYTES % (AUTO) 19 % (0-12); NEUTROPHILS # (AUTO) 2.7 10^3/uL (1.8-7.8); NEUTROPHILS % (AUTO) 45 % (42-75); PLATELET COUNT 158 10^3/uL (130-400); WHITE BLOOD COUNT 6.1 10^3/uL (4.3-11.0)
[2022-04-19 09:43] LABS: ALBUMIN 3.4 GM/DL (3.2-4.5); BILIRUBIN,TOTAL 0.5 MG/DL (0.1-1.0); CALCIUM 9.1 MG/DL (8.5-10.1); CREATININE SERUM 0.75 MG/DL (0.60-1.30); POTASSIUM 3.8 MMOL/L (3.6-5.0)
[2022-04-21 13:49] LABS: INR 2.8 (0.8-1.4); PROTHROMBIN TIME PATIENT 29.9 SEC (12.2-14.7)
[2022-04-27] MEDS ORDERED: NS IV SCH ×2 (13:00)
[2022-04-27] MEDS ORDERED: NS IV 1000 ML (CANCER CTR) IV SCH (13:00)
[2022-04-27] MEDS ORDERED: ONDANSETRON IV SCH (13:00)
[2022-04-27] MEDS ORDERED: GEMCITABINE HCL IV SCH (13:00)
== END 2022-04-28 | disposition still patient (30) ==
LOC: ONC 12:48
PROVIDERS: ATTEND Internal Medicine Hematology & Oncology
DX: Z51.11 Encounter for antineoplastic chemotherapy (principal); Z45.2 Encounter for adjustment and management of vascular access device; C25.9 Malignant neoplasm of pancreas, unspecified; E11.9 Type 2 diabetes mellitus without complications; E78.5 Hyperlipidemia, unspecified; I10 Essential (primary) hypertension
CPT/HCPCS: 36591; 80053; 85025; 85610; 86301; 96360; 96361; 96367; 96368; 96375; 96377; 96413; 96415; 96417; J2506

== ENCOUNTER 2022-05-19 09:12 | Outpatient (RCR) | payer MEDICARE, OTHER ==
[2022-04-30 09:48] LABS: BASOPHILS # (AUTO) 0.1 10^3/uL (0.0-0.1); BASOPHILS % (AUTO) 1 % (0-10); EOSINOPHILS # (AUTO) 0.2 10^3/uL (0.0-0.3)
[2022-04-30 09:50] LABS: EOSINOPHILS % (AUTO) 4 % (0-10); HEMATOCRIT 37 % (40-54); LYMPHOCYTES # (AUTO) 2.1 10^3/uL (1.0-4.0); LYMPHOCYTES % (AUTO) 32 % (12-44); MEAN CORPUSCULAR HEMOGLOBIN 37 pg (25-34); MEAN CORPUSCULAR HGB CONC 35 g/dL (32-36); MEAN CORPUSCULAR VOLUME 107 fL (80-99); MEAN PLATELET VOLUME 11.1 fL (9.0-12.2); MONOCYTES # (AUTO) 1.3 10^3/uL (0.0-1.0); MONOCYTES % (AUTO) 20 % (0-12); NEUTROPHILS # (AUTO) 2.8 10^3/uL (1.8-7.8); NEUTROPHILS % (AUTO) 43 % (42-75); PLATELET COUNT 113 10^3/uL (130-400); WHITE BLOOD COUNT 6.6 10^3/uL (4.3-11.0)
[2022-04-30 10:07] LABS: ALBUMIN 3.4 GM/DL (3.2-4.5); BILIRUBIN,TOTAL 0.7 MG/DL (0.1-1.0); CALCIUM 9.4 MG/DL (8.5-10.1); CREATININE SERUM 0.81 MG/DL (0.60-1.30); POTASSIUM 3.8 MMOL/L (3.6-5.0); TOTAL PROTEIN 6.7 GM/DL (6.4-8.2)
[2022-05-05 10:25] LABS: BASOPHILS # (AUTO) 0.1 10^3/uL (0.0-0.1); BASOPHILS % (AUTO) 1 % (0-10); EOSINOPHILS # (AUTO) 0.2 10^3/uL (0.0-0.3); EOSINOPHILS % (AUTO) 4 % (0-10); HEMATOCRIT 38 % (40-54); HEMOGLOBIN 13.1 g/dL (13.3-17.7); LYMPHOCYTES # (AUTO) 1.9 10^3/uL (1.0-4.0); LYMPHOCYTES % (AUTO) 33 % (12-44); MEAN CORPUSCULAR HEMOGLOBIN 37 pg (25-34); MEAN CORPUSCULAR HGB CONC 35 g/dL (32-36); MEAN CORPUSCULAR VOLUME 107 fL (80-99); MEAN PLATELET VOLUME 11.2 fL (9.0-12.2); MONOCYTES # (AUTO) 1.1 10^3/uL (0.0-1.0); MONOCYTES % (AUTO) 18 % (0-12); NEUTROPHILS # (AUTO) 2.5 10^3/uL (1.8-7.8); NEUTROPHILS % (AUTO) 43 % (42-75); PLATELET COUNT 176 10^3/uL (130-400); WHITE BLOOD COUNT 5.8 10^3/uL (4.3-11.0)
[2022-05-05 10:35] LABS: INR 1.9 (0.8-1.4); PROTHROMBIN TIME PATIENT 21.9 SEC (12.2-14.7)
[2022-05-05 11:07] LABS: ALBUMIN 3.3 GM/DL (3.2-4.5); BILIRUBIN,TOTAL 0.9 MG/DL (0.1-1.0); CALCIUM 8.9 MG/DL (8.5-10.1); CREATININE SERUM 0.74 MG/DL (0.60-1.30); POTASSIUM 3.6 MMOL/L (3.6-5.0); TOTAL PROTEIN 6.6 GM/DL (6.4-8.2)
[2022-05-12 09:09] LABS: EOSINOPHILS # (AUTO) 0.2 10^3/uL (0.0-0.3); EOSINOPHILS % (AUTO) 3 % (0-10); HEMOGLOBIN 12.1 g/dL (13.3-17.7)
[2022-05-12 09:11] LABS: BASOPHILS # (AUTO) 0.1 10^3/uL (0.0-0.1); BASOPHILS % (AUTO) 1 % (0-10); HEMATOCRIT 34 % (40-54); LYMPHOCYTES # (AUTO) 2.2 10^3/uL (1.0-4.0); LYMPHOCYTES % (AUTO) 40 % (12-44); MEAN CORPUSCULAR HEMOGLOBIN 37 pg (25-34); MEAN CORPUSCULAR HGB CONC 35 g/dL (32-36); MEAN CORPUSCULAR VOLUME 106 fL (80-99); MEAN PLATELET VOLUME 10.1 fL (9.0-12.2); MONOCYTES # (AUTO) 1.1 10^3/uL (0.0-1.0); MONOCYTES % (AUTO) 19 % (0-12); NEUTROPHILS % (AUTO) 36 % (42-75); PLATELET COUNT 118 10^3/uL (130-400); WHITE BLOOD COUNT 5.5 10^3/uL (4.3-11.0)
[2022-05-12 09:30] LABS: ALBUMIN 3.2 GM/DL (3.2-4.5); BILIRUBIN,TOTAL 0.9 MG/DL (0.1-1.0); CREATININE SERUM 0.72 MG/DL (0.60-1.30); POTASSIUM 3.4 MMOL/L (3.6-5.0); TOTAL PROTEIN 6.6 GM/DL (6.4-8.2)
[~2022-05-19 09:12] MED LIST changes: -ATROPINE INJ 0.4 MG/ML SDV IV SCH; -D5W 500 ML IV SOLUTION 500 ML IV SCH; -D5W IV SCH; -DEXAMETHASONE IV SCH; -FLUOROURACIL IV SCH; -FOSAPREPITANT (CANCER CENTER) 150 MG in NS (IVPB) CANCER CENTER ONLY 150 ML IV SCH; +GEMCITABINE HCL IV SCH; -IRINOTECAN HCL IV SCH; -LEUCOVORIN CALCIUM IV SCH; +NS IV 1000 ML (CANCER CTR) IV SCH; -NS IV 1000 ML 1,000 ML ONE; -OXALIPLATIN IV SCH; -PEGFILGRASTIM 6 MG/0.6 ML ONPRO KIT SQ SCH; -PROCHLORPERAZINE 10 MG TAB (COMPAZINE) PO SCH
[2022-05-19 09:27] LABS: BASOPHILS # (AUTO) 0.1 10^3/uL (0.0-0.1); BASOPHILS % (AUTO) 1 % (0-10); EOSINOPHILS # (AUTO) 0.1 10^3/uL (0.0-0.3); HEMOGLOBIN 12.9 g/dL (13.3-17.7)
[2022-05-19 09:29] LABS: EOSINOPHILS % (AUTO) 2 % (0-10); HEMATOCRIT 37 % (40-54); LYMPHOCYTES % (AUTO) 39 % (12-44); MEAN CORPUSCULAR HEMOGLOBIN 37 pg (25-34); MEAN CORPUSCULAR HGB CONC 35 g/dL (32-36); MEAN CORPUSCULAR VOLUME 106 fL (80-99); MONOCYTES # (AUTO) 1.1 10^3/uL (0.0-1.0); MONOCYTES % (AUTO) 22 % (0-12); NEUTROPHILS # (AUTO) 1.8 10^3/uL (1.8-7.8); NEUTROPHILS % (AUTO) 36 % (42-75); PLATELET COUNT 88 10^3/uL (130-400)
[2022-05-19 09:55] LABS: ALBUMIN 3.5 GM/DL (3.2-4.5); BILIRUBIN,TOTAL 1.2 MG/DL (0.1-1.0); CALCIUM 9.7 MG/DL (8.5-10.1); CREATININE SERUM 0.79 MG/DL (0.60-1.30); POTASSIUM 3.5 MMOL/L (3.6-5.0); TOTAL PROTEIN 7.1 GM/DL (6.4-8.2)
[2022-05-19] MEDS ORDERED: NS IV SCH (10:00)
[2022-05-19] MEDS ORDERED: GEMCITABINE HCL IV SCH (10:00)
== END 2022-05-29 | disposition home or self-care (01) ==
LOC: ONC 09:12
PROVIDERS: ATTEND Internal Medicine Hematology & Oncology
DX: Z51.11 Encounter for antineoplastic chemotherapy (principal); C25.9 Malignant neoplasm of pancreas, unspecified; E11.9 Type 2 diabetes mellitus without complications; E78.5 Hyperlipidemia, unspecified; I10 Essential (primary) hypertension
CPT/HCPCS: 36415; 36591; 80053; 85025; 85610; 96375; 96413

== ENCOUNTER 2022-06-23 11:34 | Outpatient (RCR) | payer MEDICARE, OTHER ==
[2022-06-02 09:24] LABS: BASOPHILS # (AUTO) 0.1 10^3/uL (0.0-0.1); BASOPHILS % (AUTO) 2 % (0-10); EOSINOPHILS # (AUTO) 0.2 10^3/uL (0.0-0.3); EOSINOPHILS % (AUTO) 4 % (0-10); HEMATOCRIT 37 % (40-54); HEMOGLOBIN 12.9 g/dL (13.3-17.7); LYMPHOCYTES # (AUTO) 1.3 10^3/uL (1.0-4.0); LYMPHOCYTES % (AUTO) 24 % (12-44); MEAN CORPUSCULAR HEMOGLOBIN 38 pg (25-34); MEAN CORPUSCULAR HGB CONC 35 g/dL (32-36); MEAN CORPUSCULAR VOLUME 109 fL (80-99); MEAN PLATELET VOLUME 10.1 fL (9.0-12.2); MONOCYTES # (AUTO) 1.4 10^3/uL (0.0-1.0); MONOCYTES % (AUTO) 25 % (0-12); NEUTROPHILS # (AUTO) 2.5 10^3/uL (1.8-7.8); NEUTROPHILS % (AUTO) 45 % (42-75); PLATELET COUNT 265 10^3/uL (130-400); WHITE BLOOD COUNT 5.6 10^3/uL (4.3-11.0)
[2022-06-02 09:46] LABS: ALBUMIN 3.4 GM/DL (3.2-4.5); BILIRUBIN,TOTAL 1.2 MG/DL (0.1-1.0); CALCIUM 9.2 MG/DL (8.5-10.1); CREATININE SERUM 0.72 MG/DL (0.60-1.30); POTASSIUM 3.7 MMOL/L (3.6-5.0); TOTAL PROTEIN 7.2 GM/DL (6.4-8.2)
[2022-06-09 08:53] LABS: BASOPHILS # (AUTO) 0.1 10^3/uL (0.0-0.1); BASOPHILS % (AUTO) 2 % (0-10); EOSINOPHILS # (AUTO) 0.2 10^3/uL (0.0-0.3); EOSINOPHILS % (AUTO) 4 % (0-10); HEMATOCRIT 36 % (40-54); HEMOGLOBIN 12.5 g/dL (13.3-17.7); LYMPHOCYTES % (AUTO) 47 % (12-44); MEAN CORPUSCULAR HEMOGLOBIN 38 pg (25-34); MEAN CORPUSCULAR HGB CONC 35 g/dL (32-36); MEAN CORPUSCULAR VOLUME 111 fL (80-99); MEAN PLATELET VOLUME 9.8 fL (9.0-12.2); MONOCYTES # (AUTO) 0.9 10^3/uL (0.0-1.0); MONOCYTES % (AUTO) 20 % (0-12); NEUTROPHILS # (AUTO) 1.2 10^3/uL (1.8-7.8); NEUTROPHILS % (AUTO) 28 % (42-75); PLATELET COUNT 150 10^3/uL (130-400); WHITE BLOOD COUNT 4.3 10^3/uL (4.3-11.0)
[2022-06-09 09:11] LABS: ALBUMIN 3.5 GM/DL (3.2-4.5); BILIRUBIN,TOTAL 1.1 MG/DL (0.1-1.0); CALCIUM 9.4 MG/DL (8.5-10.1); CREATININE SERUM 0.74 MG/DL (0.60-1.30); POTASSIUM 3.6 MMOL/L (3.6-5.0)
[2022-06-16 09:26] LABS: MEAN CORPUSCULAR VOLUME 111 fL (80-99)
[2022-06-16 09:27] LABS: BASOPHILS # (AUTO) 0.1 10^3/uL (0.0-0.1); BASOPHILS % (AUTO) 1 % (0-10); EOSINOPHILS # (AUTO) 0.1 10^3/uL (0.0-0.3); EOSINOPHILS % (AUTO) 3 % (0-10); HEMATOCRIT 35 % (40-54); HEMOGLOBIN 12.1 g/dL (13.3-17.7); LYMPHOCYTES # (AUTO) 1.8 10^3/uL (1.0-4.0); LYMPHOCYTES % (AUTO) 40 % (12-44); MEAN CORPUSCULAR HEMOGLOBIN 38 pg (25-34); MEAN CORPUSCULAR HGB CONC 34 g/dL (32-36); MEAN PLATELET VOLUME 10.5 fL (9.0-12.2); MONOCYTES % (AUTO) 23 % (0-12); NEUTROPHILS # (AUTO) 1.5 10^3/uL (1.8-7.8); NEUTROPHILS % (AUTO) 33 % (42-75); PLATELET COUNT 107 10^3/uL (130-400); WHITE BLOOD COUNT 4.5 10^3/uL (4.3-11.0)
[2022-06-16 09:40] LABS: INR 1.4 (0.8-1.4); PROTHROMBIN TIME PATIENT 17.8 SEC (12.2-14.7)
[2022-06-16 09:47] LABS: ALBUMIN 3.3 GM/DL (3.2-4.5); CALCIUM 9.1 MG/DL (8.5-10.1); CREATININE SERUM 0.73 MG/DL (0.60-1.30); POTASSIUM 4.1 MMOL/L (3.6-5.0); TOTAL PROTEIN 7.1 GM/DL (6.4-8.2)
[2022-06-23 11:48] LABS: BASOPHILS # (AUTO) 0.1 10^3/uL (0.0-0.1); BASOPHILS % (AUTO) 1 % (0-10); EOSINOPHILS # (AUTO) 0.1 10^3/uL (0.0-0.3); EOSINOPHILS % (AUTO) 3 % (0-10); HEMATOCRIT 39 % (40-54); LYMPHOCYTES # (AUTO) 1.5 10^3/uL (1.0-4.0); LYMPHOCYTES % (AUTO) 38 % (12-44); MEAN CORPUSCULAR HEMOGLOBIN 39 pg (25-34); MEAN CORPUSCULAR HGB CONC 34 g/dL (32-36); MEAN CORPUSCULAR VOLUME 115 fL (80-99); MEAN PLATELET VOLUME 11.1 fL (9.0-12.2); MONOCYTES # (AUTO) 0.8 10^3/uL (0.0-1.0); MONOCYTES % (AUTO) 21 % (0-12); NEUTROPHILS # (AUTO) 1.5 10^3/uL (1.8-7.8); NEUTROPHILS % (AUTO) 37 % (42-75); PLATELET COUNT 127 10^3/uL (130-400)
[2022-06-23 12:07] LABS: INR 1.6 (0.8-1.4); PROTHROMBIN TIME PATIENT 19.6 SEC (12.2-14.7)
== END 2022-06-29 | disposition home or self-care (01) ==
LOC: ONC 11:34
PROVIDERS: ATTEND Internal Medicine Hematology & Oncology
DX: Z51.11 Encounter for antineoplastic chemotherapy (principal); Z45.2 Encounter for adjustment and management of vascular access device; C25.9 Malignant neoplasm of pancreas, unspecified; E11.9 Type 2 diabetes mellitus without complications; E78.5 Hyperlipidemia, unspecified; I10 Essential (primary) hypertension
CPT/HCPCS: 80053; 85025; 96375; 96413; G0463; 36415; 36591; 85610; 86301

== ENCOUNTER → 2022-07-06 | Outpatient (CLI) | payer MEDICARE, OTHER ==
[~2022-07-06] MED LIST changes: +CATHETER FLUSH 10 ML SYR IV PRN; -GEMCITABINE HCL IV SCH; -HEParin (CENTRAL IV FLUSH) 500 UNIT/5 ML SYR IV PRN; +IOHEXOL 350 MG/ML 100 ML (OMNIPAQUE 350) VIAL IV ONE; +NS 100 ML (IVPB) BAG IV ONE; -NS IV 1000 ML (CANCER CTR) IV SCH; -NS IV SCH; -ONDANSETRON IV SCH
--- NOTE | 2022-07-06 11:25 | Diagnostic Imaging Report ---
EXAMINATION: CT chest, abdomen and pelvis with intravenous contrast. TECHNIQUE: Multiple contiguous axial images were obtained through the chest, abdomen and pelvis after the uneventful administration of intravenous contrast. All CT scans use one or more of the following dose optimizing techniques: automated exposure control, MA and/or KvP adjustment based on patient size and exam type or iterative reconstruction. HISTORY: Pancreatic cancer follow-up COMPARISON: 03/18/2022 FINDINGS: Thyroid: The visualized thyroid gland is normal. Mediastinum: Heart size is normal without significant pericardial effusion. The aorta is normal in caliber. No suspicious lymphadenopathy. A right-sided portacatheter is present. Lungs and airways: The lungs are clear without consolidation, pleural effusion, or pneumothorax. Stable left upper lobe pulmonary nodule measuring 0.7 cm. No new suspicious pulmonary lesion. The airways are normal. Solid organs: Numerous hepatic metastases are much better visualized on today's exam than on prior exam. Largest lesion measures up to 3.8 cm in hepatic segment 5 (series 2 image 123). Previously measured at 2.0 cm additional lesion within the periphery of the right hepatic lobe in segment 8 measures 2.7 cm. There is a dilated branching structure adjacent to this lesion which converges in the right hepatic lobe, new from prior exam. The gallbladder is normal. No extra hepatic biliary ductal dilatation. Overall stable size of the mass in the pancreatic tail measuring up to 3.5 x 4.8 cm (previously 4.6 x 3.9 cm). There continues to be likely invasion into the splenic parenchyma. There is cortical scarring seen along the lateral margin of the spleen. Adrenal glands are normal. There are left renal cysts which require no follow-up. No hydronephrosis. Bowel: The stomach and small bowel are normal without obstruction. The colon and appendix are normal. The appendix is normal. Peritoneum: There is no intraperitoneal free fluid or free air. No suspicious lymphadenopathy. Vasculature: Calcification of the aorta without aneurysm. Musculoskeletal: Degenerative changes of the spine without suspicious osseous lesion or compression fracture. There is a fat-containing periumbilical hernia with mild edema. Pelvis: The prostate gland is normal. The urinary bladder is normal. IMPRESSION: 1. Overall stable size and appearance of the pancreatic tail mass compared to prior exam. Mass continues to appear to invade the splenic parenchyma. 2. Multiple hepatic metastases which are either better visualized or have increased in size from prior exam. Findings are concerning for progression of hepatic metastasis. 3. New branching hypoattenuation within the right hepatic lobe which is concerning for biliary ductal dilatation secondary to metastasis versus portal vein thrombosis. 4. Stable left upper lobe pulmonary nodule. Dictated by: Dictated on workstation # [id number]
== END ==
LOC: RAD 09:55
PROVIDERS: ATTEND Internal Medicine Hematology & Oncology
DX: C78.7 Secondary malignant neoplasm of liver and intrahepatic bile duct (principal); C25.9 Malignant neoplasm of pancreas, unspecified; K76.89 Other specified diseases of liver
CPT/HCPCS: 71260; 74177

== ENCOUNTER → 2022-07-08 | Outpatient (CLI) | payer MEDICARE, OTHER ==
[~2022-07-08] VITALS: Wt 136.0 kg
[2022-07-08] VITALS (7 sets, daily range): BP systolic 123–136; BP diastolic 69–86
[~2022-07-08] MED LIST changes: -CATHETER FLUSH 10 ML SYR IV PRN; -IOHEXOL 350 MG/ML 100 ML (OMNIPAQUE 350) VIAL IV ONE; +LIDOCAINE 1% INJ 30 ML (XYLOCAINE) VIAL INJ ONE; +LIDOCAINE 1% INJ 30 ML (XYLOCAINE) VIAL ONE; +MIDAZOLAM 2 MG/2 ML (VERSED) VIAL IVP ONE; +MIDAZOLAM 2 MG/2 ML (VERSED) VIAL ONE; -NS 100 ML (IVPB) BAG IV ONE; +NS IV 1000 ML 1,000 ML IV STA; +NS IV 1000 ML 1,000 ML ONE; +fentaNYL INJ 100 MCG/2 ML AMP IVP ONE; +fentaNYL INJ 100 MCG/2 ML AMP ONE
[2022-07-08 07:47] LABS: HEMATOCRIT 39 % (40-54); HEMOGLOBIN 13.5 g/dL (13.3-17.7); MEAN CORPUSCULAR HEMOGLOBIN 39 pg (25-34); MEAN CORPUSCULAR HGB CONC 35 g/dL (32-36); MEAN CORPUSCULAR VOLUME 110 fL (80-99); MEAN PLATELET VOLUME 10.2 fL (9.0-12.2); PLATELET COUNT 170 10^3/uL (130-400); WHITE BLOOD COUNT 6.2 10^3/uL (4.3-11.0)
[2022-07-08 08:00] LABS: INR 1.1 (0.8-1.4); PROTHROMBIN TIME PATIENT 14.6 SEC (12.2-14.7)
--- NOTE | 2022-07-08 09:56 | Diagnostic Imaging Report ---
INDICATION: Liver masses. Patient presents for CT-guided biopsy. TECHNIQUE: All CT scans use one or more of the following dose optimizing techniques: automated exposure control, MA and/or KvP adjustment based on patient size and exam type or iterative reconstruction. Patient brought to the CT suite placed on the table in supine position. Axial imaging through the abdomen was performed to evaluate appropriate entry site. The procedure was performed utilizing conscious sedation with radiology nursing and constant patient monitoring. Patient was given a total of 50 mg Fentanyl intravenously and 1 mg of Versed intravenously. Total procedure time is approximately 6 minutes. Right abdomen was prepped and draped in usual sterile fashion. Small amount of 1% lidocaine was utilized for local anesthesia 18-gauge coaxial Temno needle was advanced and placed with its tip along the margin of the low density mass in the inferior right lobe the liver. 4 core biopsies were then obtained. The needle was removed during blood patch injection. Hemostasis was obtained using manual compression. Patient tolerated procedure well and left the department in stable condition. IMPRESSION: Successful CT-guided core biopsy of a right lobe liver mass, utilizing conscious sedation. Pathology results are currently pending. Dictated by: Dictated on workstation # [id number]
--- NOTE | 2022-07-08 10:24 | Pre-Op Note & Conscious Sedat ---
Pre-Operative Progress Note Date of Available H&P: Jul 08, 2022 Date H&P Reviewed: Jul 08, 2022 Time H&P Reviewed: 08:00 Pre-Op Diagnosis: liver masses Conscious Sedation Pre-Proced Time 08:00 ASA Score 2 For ASA 3 and 4: Consider anesthesia and medical clearance. Also, for patients with a history of failed moderate sedation consider anesthesia. Airway Lungs Heart ASA score ASA 1: a normal healthy patient ASA 2: a patient with a mild systemic disease (mid diabetes, controlled hypertension, obesity ASA 3: a patient with a severe systemic disease that limits activity (angina, COPD, prior Myocardial infarction) ASA 4: a patient with an incapacitating disease that is a constant threat to life (CHF, renal failure) ASA 5: a moribund patient not expected to survive 24 hrs. (ruptured aneurysm) ASA 6: a declared brain- patient whose organs are being harvested. For emergent operations, add the letter E after the classification Mallampati Classification Grade 2 Sedation Plan Analgesia, Amnesia, Plan communicated to team members, Discussed options with patient/fam, Discussed risks with patient/fam The patient is an appropriate candidate to undergo the planned procedure, sedation, and anesthesia. The patient immediately re-assessed prior to indication. BRIANDA SANCHEZ MD Jul 08, 2022 10:24
== END ==
LOC: SDC 06:53
PROVIDERS: ATTEND Internal Medicine Hematology & Oncology
DX: C25.9 Malignant neoplasm of pancreas, unspecified (principal)
CPT/HCPCS: 36415; 36591; 77012; 82947; 85027; 85610; 85730; 99156

== ENCOUNTER → 2022-07-27 | Outpatient (RCR) | payer MEDICARE, OTHER ==
[2022-06-30 09:25] LABS: BASOPHILS # (AUTO) 0.1 10^3/uL (0.0-0.1); BASOPHILS % (AUTO) 1 % (0-10); EOSINOPHILS # (AUTO) 0.1 10^3/uL (0.0-0.3); EOSINOPHILS % (AUTO) 3 % (0-10); HEMATOCRIT 38 % (40-54); LYMPHOCYTES # (AUTO) 1.5 10^3/uL (1.0-4.0); LYMPHOCYTES % (AUTO) 29 % (12-44); MEAN CORPUSCULAR HEMOGLOBIN 38 pg (25-34); MEAN CORPUSCULAR HGB CONC 34 g/dL (32-36); MEAN CORPUSCULAR VOLUME 112 fL (80-99); MEAN PLATELET VOLUME 10.1 fL (9.0-12.2); MONOCYTES # (AUTO) 1.2 10^3/uL (0.0-1.0); MONOCYTES % (AUTO) 22 % (0-12); NEUTROPHILS # (AUTO) 2.4 10^3/uL (1.8-7.8); NEUTROPHILS % (AUTO) 45 % (42-75); PLATELET COUNT 237 10^3/uL (130-400); WHITE BLOOD COUNT 5.3 10^3/uL (4.3-11.0)
[2022-06-30 09:35] LABS: INR 1.7 (0.8-1.4); PROTHROMBIN TIME PATIENT 20.8 SEC (12.2-14.7)
[2022-06-30 09:43] LABS: ALBUMIN 3.4 GM/DL (3.2-4.5); BILIRUBIN,TOTAL 1.1 MG/DL (0.1-1.0); CALCIUM 9.3 MG/DL (8.5-10.1); CREATININE SERUM 0.78 MG/DL (0.60-1.30); POTASSIUM 3.7 MMOL/L (3.6-5.0); TOTAL PROTEIN 7.1 GM/DL (6.4-8.2)
[~2022-07-27] MED LIST changes: +GEMCITABINE HCL IV SCH; +HEParin (CENTRAL IV FLUSH) 500 UNIT/5 ML SYR IV PRN; -LIDOCAINE 1% INJ 30 ML (XYLOCAINE) VIAL INJ ONE; -LIDOCAINE 1% INJ 30 ML (XYLOCAINE) VIAL ONE; -MIDAZOLAM 2 MG/2 ML (VERSED) VIAL IVP ONE; -MIDAZOLAM 2 MG/2 ML (VERSED) VIAL ONE; +NS IV 1000 ML (CANCER CTR) IV SCH; -NS IV 1000 ML 1,000 ML IV STA; -NS IV 1000 ML 1,000 ML ONE; +NS IV SCH; +ONDANSETRON IV SCH; -fentaNYL INJ 100 MCG/2 ML AMP IVP ONE; -fentaNYL INJ 100 MCG/2 ML AMP ONE
== END | disposition home or self-care (01) ==
LOC: ONC 06-30 08:51
PROVIDERS: ATTEND Internal Medicine Hematology & Oncology
DX: C25.9 Malignant neoplasm of pancreas, unspecified (principal); E11.9 Type 2 diabetes mellitus without complications; E78.5 Hyperlipidemia, unspecified; I10 Essential (primary) hypertension
CPT/HCPCS: 80053; 85025; 85610; G0463; 99213

== ENCOUNTER → 2022-08-27 | Outpatient (RCR) | payer MEDICARE, OTHER ==
[2022-08-19 09:29] LABS: BASOPHILS # (AUTO) 0.1 10^3/uL (0.0-0.1); BASOPHILS % (AUTO) 1 % (0-10); EOSINOPHILS # (AUTO) 0.1 10^3/uL (0.0-0.3); EOSINOPHILS % (AUTO) 2 % (0-10); HEMATOCRIT 38 % (40-54); HEMOGLOBIN 13.2 g/dL (13.3-17.7); LYMPHOCYTES # (AUTO) 1.7 10^3/uL (1.0-4.0); LYMPHOCYTES % (AUTO) 24 % (12-44); MEAN CORPUSCULAR HEMOGLOBIN 37 pg (25-34); MEAN CORPUSCULAR HGB CONC 35 g/dL (32-36); MEAN CORPUSCULAR VOLUME 107 fL (80-99); MEAN PLATELET VOLUME 10.2 fL (9.0-12.2); MONOCYTES # (AUTO) 1.3 10^3/uL (0.0-1.0); MONOCYTES % (AUTO) 17 % (0-12); NEUTROPHILS # (AUTO) 4.1 10^3/uL (1.8-7.8); NEUTROPHILS % (AUTO) 57 % (42-75); PLATELET COUNT 155 10^3/uL (130-400); WHITE BLOOD COUNT 7.3 10^3/uL (4.3-11.0)
[2022-08-19 09:49] LABS: BILIRUBIN,TOTAL 0.8 MG/DL (0.1-1.0); CALCIUM 9.4 MG/DL (8.5-10.1); CREATININE SERUM 0.67 MG/DL (0.60-1.30); POTASSIUM 3.9 MMOL/L (3.6-5.0); TOTAL PROTEIN 6.8 GM/DL (6.4-8.2)
[~2022-08-27] VITALS: Ht 188 cm; Wt 119.7 kg
[~2022-08-27] MED LIST changes: +ATROPINE INJ 0.4 MG/ML SDV IV SCH; +D5W 500 ML IV SOLUTION 500 ML IV SCH; +D5W IV SCH; +DEXAMETHASONE IV SCH; +FLUOROURACIL IV SCH; -GEMCITABINE HCL IV SCH; +IRINOTECAN LIPOSOMAL IV SCH; +LEUCOVORIN CALCIUM IV SCH; -NS IV 1000 ML (CANCER CTR) IV SCH; +[UNRECOGNIZED DRUG - OTHER] IV SCH
[2022-08-27 12:28] LABS: EOSINOPHILS # (AUTO) 0.2 10^3/uL (0.0-0.3); LYMPHOCYTES # (AUTO) 1.6 10^3/uL (1.0-4.0); MEAN CORPUSCULAR HGB CONC 36 g/dL (32-36); MEAN CORPUSCULAR VOLUME 105 fL (80-99); MONOCYTES # (AUTO) 0.1 10^3/uL (0.0-1.0); PLATELET COUNT 77 10^3/uL (130-400)
[2022-08-27 12:30] LABS: BASOPHILS # (AUTO) 0.1 10^3/uL (0.0-0.1); BASOPHILS % (AUTO) 1 % (0-10); EOSINOPHILS % (AUTO) 3 % (0-10); HEMATOCRIT 36 % (40-54); HEMOGLOBIN 12.7 g/dL (13.3-17.7); LYMPHOCYTES % (AUTO) 30 % (12-44); MEAN CORPUSCULAR HEMOGLOBIN 37 pg (25-34); MEAN PLATELET VOLUME 10.8 fL (9.0-12.2); MONOCYTES % (AUTO) 2 % (0-12); NEUTROPHILS # (AUTO) 3.4 10^3/uL (1.8-7.8); NEUTROPHILS % (AUTO) 63 % (42-75); WHITE BLOOD COUNT 5.4 10^3/uL (4.3-11.0)
== END | disposition still patient (30) ==
LOC: ONC 08-19 09:41
PROVIDERS: ATTEND Internal Medicine Hematology & Oncology
DX: Z51.11 Encounter for antineoplastic chemotherapy (principal); C25.9 Malignant neoplasm of pancreas, unspecified; E11.9 Type 2 diabetes mellitus without complications; E78.5 Hyperlipidemia, unspecified; I10 Essential (primary) hypertension
CPT/HCPCS: 36415; 36591; 80053; 85025; 96360; 96375; 96413; 96416; 96417

== ENCOUNTER 2022-09-02 12:07 | Outpatient (RCR) | payer MEDICARE, OTHER ==
[2022-08-31 09:06] LABS: HEMATOCRIT 33 % (40-54); HEMOGLOBIN 11.7 g/dL (13.3-17.7); MEAN CORPUSCULAR HGB CONC 36 g/dL (32-36); NEUTROPHILS # (AUTO) 0.9 10^3/uL (1.8-7.8); WHITE BLOOD COUNT 2.9 10^3/uL (4.3-11.0)
[2022-08-31 09:08] LABS: BASOPHILS % (AUTO) 1 % (0-10); EOSINOPHILS # (AUTO) 0.1 10^3/uL (0.0-0.3); EOSINOPHILS % (AUTO) 4 % (0-10); LYMPHOCYTES # (AUTO) 1.6 10^3/uL (1.0-4.0); LYMPHOCYTES % (AUTO) 56 % (12-44); MEAN CORPUSCULAR HEMOGLOBIN 37 pg (25-34); MEAN CORPUSCULAR VOLUME 105 fL (80-99); MEAN PLATELET VOLUME 10.7 fL (9.0-12.2); MONOCYTES # (AUTO) 0.2 10^3/uL (0.0-1.0); MONOCYTES % (AUTO) 8 % (0-12); NEUTROPHILS % (AUTO) 32 % (42-75); PLATELET COUNT 81 10^3/uL (130-400)
[2022-08-31 09:29] LABS: ALBUMIN 3.1 GM/DL (3.2-4.5); BILIRUBIN,TOTAL 0.9 MG/DL (0.1-1.0); CALCIUM 9.5 MG/DL (8.5-10.1); CREATININE SERUM 0.62 MG/DL (0.60-1.30); POTASSIUM 3.8 MMOL/L (3.6-5.0); TOTAL PROTEIN 6.8 GM/DL (6.4-8.2)
[~2022-09-02 12:07] MED LIST changes: +D5W 500 ML IV SOLUTION 500 ML IV ONE; +NS IV 1000 ML 1,000 ML IV SCH; +[UNRECOGNIZED DRUG - OTHER] IV SCH
== END 2022-09-26 | disposition still patient (30) ==
LOC: ONC 12:07
PROVIDERS: ATTEND Internal Medicine Hematology & Oncology
DX: Z51.11 Encounter for antineoplastic chemotherapy (principal); Z45.2 Encounter for adjustment and management of vascular access device; C25.9 Malignant neoplasm of pancreas, unspecified; E11.9 Type 2 diabetes mellitus without complications; E78.5 Hyperlipidemia, unspecified; I10 Essential (primary) hypertension
CPT/HCPCS: 36591; 80053; 85025; 96360; 96361; 96375; 96413; 96417

== ENCOUNTER → 2022-09-09 | Outpatient (CLI) | payer MEDICARE, OTHER ==
[~2022-09-09] MED LIST changes: -ATROPINE INJ 0.4 MG/ML SDV IV SCH; -D5W 500 ML IV SOLUTION 500 ML IV ONE; -D5W 500 ML IV SOLUTION 500 ML IV SCH; -D5W IV SCH; -DEXAMETHASONE IV SCH; -FLUOROURACIL IV SCH; -HEParin (CENTRAL IV FLUSH) 500 UNIT/5 ML SYR IV PRN; +HOLD METFORMIN - RECEIVED CONTRAST 20 ML VIAL IV SCH; +IOHEXOL 350 MG/ML 100 ML (OMNIPAQUE 350) VIAL IV ONE; -IRINOTECAN LIPOSOMAL IV SCH; -LEUCOVORIN CALCIUM IV SCH; +NS 50 ML (IVPB) BAG IV ONE; -NS IV 1000 ML 1,000 ML IV SCH; -NS IV SCH; -ONDANSETRON IV SCH; -[UNRECOGNIZED DRUG - OTHER] IV SCH; -[UNRECOGNIZED DRUG - OTHER] IV SCH
--- NOTE | 2022-09-09 12:23 | Diagnostic Imaging Report ---
EXAMINATION: CT chest, abdomen and pelvis with intravenous contrast. TECHNIQUE: Multiple contiguous axial images were obtained through the chest, abdomen and pelvis after the uneventful administration of intravenous contrast. All CT scans use one or more of the following dose optimizing techniques: automated exposure control, MA and/or KvP adjustment based on patient size and exam type or iterative reconstruction. HISTORY: pancreatic cancer COMPARISON: 07/06/2022 FINDINGS: There is no edema or pneumonia. No pleural effusion. No pneumothorax. No suspicious nodules. There is a calcified granuloma in the left upper lobe. There is no axillary or supraclavicular lymphadenopathy. There is no mediastinal lymphadenopathy. A right-sided portacatheter is present. Heart size is normal. There are severe coronary artery calcifications. No pericardial effusion. Aorta is normal in caliber. A 3.3 x 3.2 cm right liver lesion previously measured 2.4 x 2.7 cm. An inferior right liver lesion measures 4.1 x 2.9 cm, previously 3.7 x 2.2 cm. Other liver lesions also appear mildly increased in size. There is no biliary ductal dilation. Gallbladder is normal. The lesion in the pancreatic tail measures 5.1 x 4.0 cm, previously 4.8 x 3.5 cm. It invades the splenic hilum. Adrenal glands are normal. There is a simple cyst in left kidney. No suspicious renal lesion. There is no hydronephrosis. Urinary bladder is normal. There is diverticulosis with stranding associated with a diverticulum in the sigmoid colon suggestive of diverticulitis. There is a bowel containing ventral hernia. Small amount of free fluid is present. No free air. No abdominal or pelvic lymphadenopathy. Aorta is normal in caliber without aneurysm. There are no suspicious osseus lesions. IMPRESSION: 1. Increase in size of liver lesions and pancreatic lesion. 2. Diverticulitis of the sigmoid colon. Report was called to Luis Carlos, nurse office of Dr. Hodgson by tone at 12:20PM. Dictated by: Dictated on workstation # [id number]
== END ==
LOC: RAD 11:10
PROVIDERS: ATTEND Internal Medicine Hematology & Oncology
DX: K76.9 Liver disease, unspecified (principal); K86.89 Other specified diseases of pancreas; K57.32 Diverticulitis of large intestine without perforation or abscess without bleeding; C25.9 Malignant neoplasm of pancreas, unspecified
CPT/HCPCS: 71260; 74177

== ENCOUNTER 2022-11-03 17:23 | Emergency (ER) | payer MEDICARE, OTHER ==
[~2022-11-03] VITALS: Ht 185.5 cm; Wt 127.0 kg
[~2022-11-03 17:23] MED LIST changes: -HOLD METFORMIN - RECEIVED CONTRAST 20 ML VIAL IV SCH; -IOHEXOL 350 MG/ML 100 ML (OMNIPAQUE 350) VIAL IV ONE; -NS 50 ML (IVPB) BAG IV ONE
[2022-11-03 17:49] LABS: BASOPHILS # (AUTO) 0.1 10^3/uL (0.0-0.1); BASOPHILS % (AUTO) 1 % (0-10); EOSINOPHILS # (AUTO) 0.1 10^3/uL (0.0-0.3); EOSINOPHILS % (AUTO) 1 % (0-10); HEMATOCRIT 33 % (40-54); HEMOGLOBIN 11.3 g/dL (13.3-17.7); LYMPHOCYTES # (AUTO) 1.7 10^3/uL (1.0-4.0); LYMPHOCYTES % (AUTO) 22 % (12-44); MEAN CORPUSCULAR HEMOGLOBIN 38 pg (25-34); MEAN CORPUSCULAR HGB CONC 34 g/dL (32-36); MEAN CORPUSCULAR VOLUME 113 fL (80-99); MEAN PLATELET VOLUME 9.9 fL (9.0-12.2); MONOCYTES % (AUTO) 12 % (0-12); NEUTROPHILS % (AUTO) 64 % (42-75); PLATELET COUNT 197 10^3/uL (130-400); WHITE BLOOD COUNT 7.8 10^3/uL (4.3-11.0)
--- NOTE | 2022-11-03 17:56 | ED Abdominal Pain ---
General Chief Complaint: Abdominal/GI Problems Stated Complaint: ABD PAIN Nursing Triage Note: PT AMB TO RM 8 WITH COMPLAINT OF ABD PAIN/SWELLING AND SOA. HAS ASCITES FROM PANCREATIC AND LIVER CANCER. 2-3 WEEKS AGO HAD 5L DRAINED AT [facility]. HAD ABD CT SCANS TODAY AND HAD TO DRINK CONTRAST THAT MADE PAIN AND SWELLING WORSE. HAS APPT WITH JEREMIAH ON TUESDAY. Source of Information: Patient, Family Exam Limitations: No Limitations History of Present Illness Date Seen by Provider: Nov 03, 2022 Time Seen by Provider: 17:30 Initial Comments 66-year-old male presents to the ER with complaints of abdominal pain/swelling and shortness of air. He has liver and pancreatic cancer which has resulted in ascites. He had his ascites drained at [facility] in [place] 2 to 3 weeks ago. They removed 5 L at that time. Patient reports that he feels as though the swelling came back quickly and he started having shortness of breath. He is supposed to see Dr. Michaels on Tuesday for consultation for his ascites. Patient does not think he will be able to wait until Tuesday to have his stomach drained. He is also complaining of bilateral leg swelling. He is also complaining of burning w ith urination. Allergies and Home Medications Allergies Coded Allergies: morphine (Verified Allergy, Mild, rash, 11/25/17) Patient Home Medication List Home Medication List Reviewed: Yes Apixaban (Eliquis) 5 Mg Tablet, 5 MG PO BID Prescribed by: TROY FLORIAN on 06/14/21 0844 Glipizide (Glipizide) 10 Mg Tablet, 10 MG PO BID, (Reported) Entered as Reported by: KENRICK GARCIA on 11/25/17 1544 Levothyroxine Sodium (Levothyroxine Sodium) 175 Mcg Tablet, 175 MCG PO DAILY, (Reported) Entered as Reported by: KENRICK GARCIA on 11/25/17 1544 Metformin HCl (Metformin HCl) 1,000 Mg Tablet, 1,000 MG PO BID, (Reported) Entered as Reported by: KENRICK GARCIA on 11/25/17 1544 Omeprazole (Omeprazole) 40 Mg Capsule.dr 40 MG PO DAILY Prescribed by: ELROY MAGALLON on 10/12/21 8625 Oxycodone HCl/Acetaminophen (Percocet 5-325 mg Tablet) 1 Each Tablet, 1 TAB PO Q4H Prescribed by: GRANT BOYD on 05/07/21 1429 Promethazine HCl (Promethazine Tablet) 25 Mg Tablet, 25 MG PO Q8H PRN for NAUSEA/VOMITING Prescribed by: ELROY MAGALLON on 10/12/21 1651 Warfarin Sodium (Warfarin Sodium) 5 Mg Tablet, 5 MG PO HS, (Reported) Entered as Reported by: KENRICK GARCIA on 11/25/17 1544 Review of Systems Review of Systems Constitutional: see HPI Past Bxvntba-Ffjqkw-Fduasd Hx Patient Social History Tobacco Use?: No Use of E-Cig and/or Vaping dev: No Substance use?: No Alcohol Use?: No Pt feels they are or have been: No Immunizations Up To Date Tetanus Booster (TDap): Unknown First/Initial COVID19 Vaccinat: n/a Second COVID19 Vaccination Kumar: n/a Third COVID19 Vaccination Date: n/a Seasonal Allergies Seasonal Allergies: Yes Past Medical History Surgery/Hospitalization HX: HX LEG BLOOD CLOT RECENT DX OF PANCREATIC CA Surgeries: Yes (knee scope) Respiratory: Yes Pulmonary Embolism Cardiac: Yes Deep Vein Thrombosis, High Cholesterol Neurological: No Genitourinary: Yes Kidney Stones Gastrointestinal: No Musculoskeletal: No Endocrine: Yes Diabetes, Non-Insulin dep HEENT: No Loss of Vision: Denies Hearing Impairment: Denies Cancer: No Psychosocial: No Integumentary: No Blood Disorders: No Physical Exam Vital Signs Vital Signs - First Documented 11/03/22 17:32 Temp 36.7 Pulse 104 Resp 20 B/P (MAP) 138/85 (102) Pulse Ox 98 O2 Delivery Room Air Capillary Refill : Less Than 3 Seconds Height/Weight/BMI Height: 6'1.00" Weight: 348lbs. oz. [id number]; 36.00 BMI Method:Stated General Appearance: WD/WN, no apparent distress Neck: supple, normal inspection Respiratory: lungs clear, decreased breath sounds Cardiovascular: tachycardia Gastrointestinal: normal bowel sounds, soft, tenderness (Mild tenderness right side) Extremities: normal range of motion, pedal edema Neurologic/Psychiatric: alert, normal mood/affect Skin: normal color, warm/dry Progress/Results/Core Measures Results/Orders Lab Results Laboratory Tests Test 11/03/22 17:43 Range/Units White Blood Count 7.8 4.3-11.0 10^3/uL Red Blood Count 2.95 L 4.30-5.52 10^6/uL Hemoglobin 11.3 L 13.3-17.7 g/dL Hematocrit 33 L 40-54 % Mean Corpuscular Volume 113 H 80-99 fL Mean Corpuscular Hemoglobin 38 H 25-34 pg Mean Corpuscular Hemoglobin Concent 34 32-36 g/dL Red Cell Distribution Width 15.1 H 10.0-14.5 % Platelet Count 197 130-400 10^3/uL Mean Platelet Volume 9.9 9.0-12.2 fL Immature Granulocyte % (Auto) 0 % Neutrophils (%) (Auto) 64 42-75 % Lymphocytes (%) (Auto) 22 12-44 % Monocytes (%) (Auto) 12 0-12 % Eosinophils (%) (Auto) 1 0-10 % Basophils (%) (Auto) 1 0-10 % Neutrophils # (Auto) 5.0 1.8-7.8 10^3/uL Lymphocytes # (Auto) 1.7 1.0-4.0 10^3/uL Monocytes # (Auto) 1.0 0.0-1.0 10^3/uL Eosinophils # (Auto) 0.1 0.0-0.3 10^3/uL Basophils # (Auto) 0.1 0.0-0.1 10^3/uL Immature Granulocyte # (Auto) 0.0 0.0-0.1 10^3/uL Prothrombin Time 43.4 H 12.2-14.7 SEC INR Comment 4.7 H 0.8-1.4 Activated Partial Thromboplast Time 63 H 24-35 SEC Sodium Level 136 135-145 MMOL/L Potassium Level 4.1 3.6-5.0 MMOL/L Chloride Level 101 98-107 MMOL/L Carbon Dioxide Level 24 21-32 MMOL/L Anion Gap 11 5-14 MMOL/L Blood Urea Nitrogen 14 7-18 MG/DL Creatinine 0.78 0.60-1.30 MG/DL Estimat Glomerular Filtration Rate 98 BUN/Creatinine Ratio 18 Glucose Level 129 H 70-105 MG/DL Calcium Level 9.3 8.5-10.1 MG/DL Corrected Calcium 10.2 H 8.5-10.1 MG/DL Total Bilirubin 1.1 H 0.1-1.0 MG/DL Aspartate Amino Transf (AST/SGOT) 55 H 5-34 U/L Alanine Aminotransferase (ALT/SGPT) 38 0-55 U/L Alkaline Phosphatase 190 H 40-136 U/L Total Protein 7.4 6.4-8.2 GM/DL Albumin 2.9 L 3.2-4.5 GM/DL Lipase < 4 L 8-78 U/L Smear Scan My Orders Orders - MAO PETERSEN APRN Comprehensive Metabolic Panel (11/03/22 17:33) Lipase (11/03/22 17:33) Ua Culture If Indicated (11/03/22 17:33) Ed Iv/Invasive Line Start (11/03/22 17:33) Cbc With Automated Diff (11/03/22 17:33) Protime With Inr (11/03/22 17:56) Partial Thromboplastin Time (11/03/22 17:56) Ns Iv 500 Ml (Sodium Chloride 0.9%) (11/03/22 19:00) Medications Given in ED Current Medications Medications Dose Ordered Sig/Ashley Route Start Time Stop Time Status Last Admin Dose Admin Sodium Chloride 500 ml @ 0 mls/hr Q0M ONCE IV 11/03/22 19:00 11/03/22 19:01 DC 11/03/22 18:59 0 MLS/HR Vital Signs/I&O 11/03/22 17:32 Temp 36.7 Pulse 104 Resp 20 B/P (MAP) 138/85 (102) Pulse Ox 98 O2 Delivery Room Air Blood Pressure Mean: 102 Progress Progress Note : Progress Note Patient seen and evaluated, sitting in bed, mild distress. Based on exam and symptoms, work-up initiated including CBC, CMP, lipase, UA, coags. Patient later informed staff that he forgot to take his OxyContin this morning, his is going to give him his dose of OxyContin. 1840 Labs reviewed. CBC shows decreased RBCs 2.95, decreased hemoglobin 11.3, decreased hematocrit 33, elevated MCV 113, elevated MCH 38. CBC is similar to previous completed on 08/31/2022. CMP shows blood sugar 129, slightly elevated total bilirubin 1.1, elevated AST 55, elevated alkaline phosphatase 190, decreased albumin 2.9. Low lipase level. Liver function is similar to previous labs, except ALT is improved down from 58 to 38. Patient's PT is elevated 43.4, INR is elevated 4.7, APTT is elevated 63. I spoke with Dr. Esqueda, surgery, regarding patient. He will see patient in the office tomorrow afternoon for consult, and possible paracentesis on Tuesday. He would like patient to stop taking his Coumadin so that his INR can improve before then. Results and plan of care discussed with patient. Waiting for patient to provide urine sample, he states he has not been drinking a lot of water because he does not want it to cause his abdomen to swell more. Patient given a glass of water and 500 mL of normal saline bolus to facilitate urine sample. Departure Impression Primary Impression: Ascites Additional Impression: Anemia Disposition: 01 HOME, SELF-CARE Condition: Stable Departure-Patient Inst. Decision time for Depature: 20:25 Referrals: BRANDON SANTORO APRN (PCP) Primary Care Physician REEN ESQUEDA DO Patient Instructions: Fluid in the Belly (Ascites) (DC) Add. Discharge Instructions: Call the surgery clinic in the morning to schedule an appointment for tomorrow afternoon. Let them know that Dr. Esqueda is expecting you to be seen tomorrow afternoon. Stop taking your warfarin until you are evaluated by Dr. Esqueda. Discussed with him when you should restart your warfarin. Complete the outpatient urine sample, and return specimen to the lab. Return for significant shortness of breath, severe pain, or any other new, concerning, or worsening symptoms. All discharge instructions reviewed with patient and/or family. Voiced unde rstanding. MAO PETERSEN APRN Nov 03, 2022 17:56
[2022-11-03 18:07] LABS: ALBUMIN 2.9 GM/DL (3.2-4.5)
[2022-11-03 18:08] LABS: CHLORIDE 101 MMOL/L (98-107); POTASSIUM 4.1 MMOL/L (3.6-5.0); SODIUM 136 MMOL/L (135-145)
[2022-11-03 18:09] LABS: CALCIUM 9.3 MG/DL (8.5-10.1)
[2022-11-03 18:10] LABS: GLUCOSE 129 MG/DL (70-105); TOTAL PROTEIN 7.4 GM/DL (6.4-8.2)
[2022-11-03 18:11] LABS: CARBON DIOXIDE 24 MMOL/L (21-32); INR 4.7 (0.8-1.4); PROTHROMBIN TIME PATIENT 43.4 SEC (12.2-14.7)
[2022-11-03 18:12] LABS: BILIRUBIN,TOTAL 1.1 MG/DL (0.1-1.0)
[2022-11-03 18:13] LABS: ALKALINE PHOSPHATASE 190 U/L (40-136); CREATININE SERUM 0.78 MG/DL (0.60-1.30); GFR ESTIMATED 98
[2022-11-03 18:14] LABS: BUN/CREATININE RATIO 18
[2022-11-03 18:16] LABS: ALANINE AMINOTRANSFERASE 38 U/L (0-55)
[2022-11-03 18:17] LABS: LIPASE < 4 U/L (8-78)
[2022-11-03] MEDS ORDERED: NS IV 500 ML 500 ML IV ONE (19:00)
[2022-11-03 20:32] VITALS: BP 117/76
== END 2022-11-03 20:36 | disposition home or self-care (01) ==
LOC: ER 17:23 → EDUNIT# 17:23 → ER 20:36
DX: R18.8 Other ascites (principal); D63.8 Anemia in other chronic diseases classified elsewhere; Z79.01 Long term (current) use of anticoagulants
CPT/HCPCS: 36415; 80053; 83690; 85025; 85610; 85730

== ENCOUNTER → 2022-11-04 | Outpatient (CLI) | payer MEDICARE, OTHER ==
[~2022-11-04] MED LIST changes: +HYDR-3820 PO; +OXYCONTIN PO
[2022-11-04 15:53] LABS: BILIRUBIN,URINE 1+ (NEGATIVE); CLARITY,URINE CLEAR; COLOR,URINE AMBER; GLUCOSE, URINE (UA) NEGATIVE (NEGATIVE); KETONES,URINE NEGATIVE (NEGATIVE); LEUKOCYTE ESTERASE ,URINE NEGATIVE (NEGATIVE); NITRITE,URINE NEGATIVE (NEGATIVE); PH,URINE 5.5 (5-9); PROTEIN,URINE TRACE (NEGATIVE)
[2022-11-04 16:02] LABS: BACTERIA,URINE MODERATE /HPF; WBC,URINE 0-2 /HPF
[2022-11-04 16:03] LABS: AMORPHOUS SEDIMENT,UR MOD AMOR URATES /LPF
== END ==
LOC: LAB 15:44
PROVIDERS: ATTEND Emergency Medicine
DX: R30.0 Dysuria (principal)
CPT/HCPCS: 81000; 87088

== ENCOUNTER 2022-11-08 09:53 | Outpatient (CLI) | payer MEDICARE, OTHER ==
[~2022-11-08] VITALS: Ht 127 cm; Wt 132.2 kg
[~2022-11-08 09:53] MED LIST changes: -HYDR-3820 PO; -OXYCONTIN PO
[2022-11-08] MEDS ORDERED: LIDOCAINE 1% INJ 20 ML VIAL ONE (10:58)
[2022-11-08] MEDS ORDERED: ALBUMIN 25% 25 GM/100 ML 100 ML IV ONE (11:15)
--- NOTE | 2022-11-08 12:39 | Progress Note-Post Operative ---
Post-Operative Progess Note Surgeon (s)/Hat And Cap Parts Cutter Hand (s) Surgeon RENE ESQUEDA DO Hat And Cap Parts Cutter Hand: none Pre-Operative Diagnosis Ascites Post-Operative Diagnosis same Procedure & Operative Findings Date of Procedure 11/08/22 Procedure Performed/Findings Procedural Note: Paracentesis The patient was in the PACU in his bed. I used the portable US and found the largest pocket of fluid. The abdomen was then prepped and draped and timeout was performed. Local anesthetic was infiltrated and #11 blade scalpel was used to make a small skin incision. Cjrs-O-Drnraizh needle and catheter were then advanced until a yellowish straw-colored fluid was withdrawn. The catheter was advanced and the needle was removed. Plan was to remove as much fluid as we can. Once done draining, the catheter will be removed and sterile bandage applied. The nurse called and they were able to get 8800ml of fluid. Pt will get albumin per protocol. The patient tolerated procedure well without any complications. Anesthesia Type local lidocaine Estimated Blood Loss Estimated blood loss (mL): scant Specimens/Packing Specimens Removed ascitic fluid RENE ESQUEDA DO Nov 08, 2022 12:39
[2022-11-08 12:50] VITALS: BP 116/87
[2022-11-08] MEDS ORDERED: OXYCONTIN PO (16:11)
[2022-11-08] MEDS ORDERED: HYDR-3820 PO (16:11)
== END 2022-11-08 12:50 | disposition home or self-care (01) ==
LOC: SDC 09:53
PROVIDERS: ATTEND Surgery
DX: R18.8 Other ascites (principal)
CPT/HCPCS: 49083; 96365; 96366

== ENCOUNTER 2022-11-17 08:39 | Emergency (ER) | payer MEDICARE, OTHER ==
[~2022-11-17] VITALS: Ht 193 cm; Wt 124.0 kg
[~2022-11-17 08:39] MED LIST changes: +HYDR-3820 PO; +OXYCONTIN PO
--- NOTE | 2022-11-17 08:59 | ED Abdominal Pain ---
General Stated Complaint: ABD PAIN | CANCER History of Present Illness Date Seen by Provider: Nov 17, 2022 Time Seen by Provider: 08:59 Initial Comments 66-year-old male presents with abdominal pain and known abdominal cancer. Patient has ascites that gets drained by Dr. Michaels. He reports that the ascites is worse that he has appointment with Dr. Michaels next week but he "just cannot make it that long. Patient reports that the ascites is causing his back to hurt, he has worsening shortness of breath. Allergies and Home Medications Allergies Coded Allergies: morphine (Verified Allergy, Mild, rash, 11/25/17) Patient Home Medication List Home Medication List Reviewed: Yes Apixaban (Eliquis) 5 Mg Tablet, 5 MG PO BID Prescribed by: TROY FLORIAN on 06/14/21 0844 Glipizide (Glipizide) 10 Mg Tablet, 10 MG PO BID, (Reported) Entered as Reported by: KENRICK GARCIA on 11/25/17 1544 Hydrocodone/Acetaminophen (Hydrocodone-Acetamin 10-325 mg) 10 Mg-325 Mg Tablet, 1 EACH PO Q4H, (Reported) Entered as Reported by: SHRUTHI RAMIRES on 11/08/22 1611 Levothyroxine Sodium (Levothyroxine Sodium) 175 Mcg Tablet, 175 MCG PO DAILY, (Reported) Entered as Reported by: KENRICK GARCIA on 11/25/17 1544 Metformin HCl (Metformin HCl) 1,000 Mg Tablet, 1,000 MG PO BID, (Reported) Entered as Reported by: KENRICK GARCIA on 11/25/17 1544 Omeprazole (Omeprazole) 40 Mg Capsule., 40 MG PO DAILY Prescribed by: ELROY MAGALLON on 10/12/21 1749 Promethazine HCl (Promethazine Tablet) 25 Mg Tablet, 25 MG PO Q8H PRN for NAUSEA/VOMITING Prescribed by: ELROY MAGALLON on 10/12/21 1651 Warfarin Sodium (Warfarin Sodium) 5 Mg Tablet, 5 MG PO HS, (Reported) Entered as Reported by: KENRICK GARCIA on 11/25/17 1544 [Oxycontin] Unknown Strength , Unknown Dose PO, (Reported) Entered as Reported by: SHRUTHI RAMIRES on 11/08/22 1611 Review of Systems Review of Systems Constitutional: No chills, No fever Respiratory: Orthopnea, Shortness of Air Cardiovascular: Denies Chest Pain Gastrointestinal: See HPI, Abdomen Distended, Abdominal Pain Musculoskeletal: back pain Skin: no symptoms reported Psychiatric/Neurological: No Symptoms Reported Past Oqaqlic-Pnuhqv-Vpmpyt Hx Immunizations Up To Date Tetanus Booster (TDap): Unknown First/Initial COVID19 Vaccinat: n/a Second COVID19 Vaccination Kumar: n/a Third COVID19 Vaccination Date: n/a Seasonal Allergies Seasonal Allergies: Yes Past Medical History Surgery/Hospitalization HX: HX LEG BLOOD CLOT RECENT DX OF PANCREATIC CA Surgeries: Yes (knee scope) Respiratory: Yes Pulmonary Embolism Cardiac: Yes Deep Vein Thrombosis, High Cholesterol Neurological: No Genitourinary: Yes Kidney Stones Gastrointestinal: No Musculoskeletal: No Endocrine: Yes Diabetes, Non-Insulin dep HEENT: No Loss of Vision: Denies Hearing Impairment: Denies Cancer: No Psychosocial: No Integumentary: No Blood Disorders: No Physical Exam Vital Signs Vital Signs - First Documented 11/17/22 09:00 Temp 36.7 Pulse 95 Resp 18 B/P (MAP) 120/76 (91) Pulse Ox 97 Capillary Refill : Height/Weight/BMI Height: 6'1.00" Weight: 348lbs. oz. 157.232975ki; 36.00 BMI Method:Stated General Appearance: obese Respiratory: lungs clear, normal breath sounds Cardiovascular: normal peripheral pulses, regular rate, rhythm Gastrointestinal: soft, distended (mild) Neurologic/Psychiatric: alert, normal mood/affect Progress/Results/Core Measures Results/Orders Lab Results Laboratory Tests Test 11/17/22 09:20 Range/Units White Blood Count 11.4 H 4.3-11.0 10^3/uL Red Blood Count 2.87 L 4.30-5.52 10^6/uL Hemoglobin 11.2 L 13.3-17.7 g/dL Hematocrit 33 L 40-54 % Mean Corpuscular Volume 113 H 80-99 fL Mean Corpuscular Hemoglobin 39 H 25-34 pg Mean Corpuscular Hemoglobin Concent 35 32-36 g/dL Red Cell Distribution Width 15.2 H 10.0-14.5 % Platelet Count 105 L 130-400 10^3/uL Mean Platelet Volume 10.8 9.0-12.2 fL Immature Granulocyte % (Auto) 0 % Neutrophils (%) (Auto) 64 42-75 % Lymphocytes (%) (Auto) 24 12-44 % Monocytes (%) (Auto) 12 0-12 % Eosinophils (%) (Auto) 0 0-10 % Basophils (%) (Auto) 0 0-10 % Neutrophils # (Auto) 7.3 1.8-7.8 10^3/uL Lymphocytes # (Auto) 2.7 1.0-4.0 10^3/uL Monocytes # (Auto) 1.3 H 0.0-1.0 10^3/uL Eosinophils # (Auto) 0.0 0.0-0.3 10^3/uL Basophils # (Auto) 0.0 0.0-0.1 10^3/uL Immature Granulocyte # (Auto) 0.1 0.0-0.1 10^3/uL Percent Immature Platelet Fraction 4.9 0.0-7.6 % Prothrombin Time 17.3 H 12.2-14.7 SEC INR Comment 1.4 0.8-1.4 Activated Partial Thromboplast Time 30 24-35 SEC Sodium Level 139 135-145 MMOL/L Potassium Level 3.4 L 3.6-5.0 MMOL/L Chloride Level 107 98-107 MMOL/L Carbon Dioxide Level 20 L 21-32 MMOL/L Anion Gap 12 5-14 MMOL/L Blood Urea Nitrogen 25 H 7-18 MG/DL Creatinine 0.72 0.60-1.30 MG/DL Estimat Glomerular Filtration Rate 101 BUN/Creatinine Ratio 35 Glucose Level 86 70-105 MG/DL Calcium Level 8.6 8.5-10.1 MG/DL Corrected Calcium 9.6 8.5-10.1 MG/DL Magnesium Level 1.6 1.6-2.4 MG/DL Total Bilirubin 1.1 H 0.1-1.0 MG/DL Aspartate Amino Transf (AST/SGOT) 74 H 5-34 U/L Alanine Aminotransferase (ALT/SGPT) 52 0-55 U/L Alkaline Phosphatase 188 H 40-136 U/L Total Protein 6.8 6.4-8.2 GM/DL Albumin 2.8 L 3.2-4.5 GM/DL My Orders Orders - SOTELO,ADRIANA L DO Cbc With Automated Diff (11/17/22 09:08) Comprehensive Metabolic Panel (11/17/22 09:08) Magnesium (11/17/22 09:08) Protime With Inr (11/17/22 10:14) Partial Thromboplastin Time (11/17/22 10:14) Ketamine Syringe (Ketamine Syringe) (11/17/22 11:30) Medications Given in ED Current Medications Medications Dose Ordered Sig/Ashley Route Start Time Stop Time Status Last Admin Dose Admin Ketamine HCl 20 mg ONCE ONCE IV 11/17/22 11:30 11/17/22 11:31 DC 11/17/22 11:42 20 MG Vital Signs/I&O 11/17/22 11/17/22 09:00 14:33 Temp 36.7 36.7 Pulse 95 Resp 18 18 B/P (MAP) 120/76 (91) 111/58 Pulse Ox 97 97 Progress Progress Note : Progress Note Patient diagnostically ordered reviewed and interpreted by me. Patient was discussed with Dr. Michaels for managing his ascites. Dr Michaels came and saw patient in the ER. At this time does not feel there is any drainable ascites. Patient does have chronic back pain that the cancer seems to be making worse. Patient has an ultrasound ordered for recheck in [address] Michaels to reevaluate. Due to patient's chronic pain and worsening condition social work lecturer was asked to see patient they will help him set up home health care and hospice will come and visit with patient tomorrow at home. Patient was given ketamine for some short-term pain control and he was able to ambulate at his baseline. Patient was stable and discharged home. Patient is at increased risk for morbidity and mortality based on the social determinants of health and medical diagnosis Departure Impression Primary Impression: Ascites Qualified Codes: R18.0 - Malignant ascites Additional Impression: Chronic back pain Qualified Codes: M54.50 - Low back pain, unspecified; G89.29 - Other chronic pain Disposition: HOME, SELF-CARE Condition: Stable Departure-Patient Inst. Referrals: [facility] (PCP) Primary Care Physician BRANDON SANTORO APRN (Family) Primary Care Physician Patient Instructions: Fluid in the belly (ascites), Low Back Pain ED Add. Discharge Instructions: please follow up with ADRIANA Shelton DO Nov 17, 2022 08:59
[2022-11-17 09:27] LABS: EOSINOPHILS % (AUTO) 0 % (0-10); HEMATOCRIT 33 % (40-54); HEMOGLOBIN 11.2 g/dL (13.3-17.7); MEAN CORPUSCULAR HGB CONC 35 g/dL (32-36)
[2022-11-17 09:29] LABS: BASOPHILS % (AUTO) 0 % (0-10); LYMPHOCYTES # (AUTO) 2.7 10^3/uL (1.0-4.0); LYMPHOCYTES % (AUTO) 24 % (12-44); MEAN CORPUSCULAR HEMOGLOBIN 39 pg (25-34); MEAN CORPUSCULAR VOLUME 113 fL (80-99); MEAN PLATELET VOLUME 10.8 fL (9.0-12.2); MONOCYTES # (AUTO) 1.3 10^3/uL (0.0-1.0); MONOCYTES % (AUTO) 12 % (0-12); NEUTROPHILS # (AUTO) 7.3 10^3/uL (1.8-7.8); NEUTROPHILS % (AUTO) 64 % (42-75); PLATELET COUNT 105 10^3/uL (130-400); WHITE BLOOD COUNT 11.4 10^3/uL (4.3-11.0)
[2022-11-17 09:39] LABS: ALBUMIN 2.8 GM/DL (3.2-4.5)
[2022-11-17 09:40] LABS: POTASSIUM 3.4 MMOL/L (3.6-5.0)
[2022-11-17 09:41] LABS: CALCIUM 8.6 MG/DL (8.5-10.1)
[2022-11-17 09:42] LABS: TOTAL PROTEIN 6.8 GM/DL (6.4-8.2)
[2022-11-17 09:44] LABS: BILIRUBIN,TOTAL 1.1 MG/DL (0.1-1.0)
[2022-11-17 09:46] LABS: CREATININE SERUM 0.72 MG/DL (0.60-1.30)
[2022-11-17 09:49] LABS: MAGNESIUM 1.6 MG/DL (1.6-2.4)
[2022-11-17 10:24] LABS: INR 1.4 (0.8-1.4); PROTHROMBIN TIME PATIENT 17.3 SEC (12.2-14.7)
[2022-11-17] MEDS ORDERED: KETAMINE 50 MG/5 ML SYRINGE IV ONE (11:30)
--- NOTE | 2022-11-17 11:48 | Consultation - Surgery ---
History of Present Illness History of Present Illness Patient Consulted On(craig/time) 11/17/22 11:48 Date Seen by Provider: Nov 17, 2022 Time Seen by Provider: 11:48 History of Present Illness Consult reqeusted by Dr. Acuña for abdominal distention/ascites. Patient is a 66-year-old male with known pancreatic cancer. Patient with abdominal ascites. He had to have this drained previously when I was out of town. He is having increasing abdominal distention since having it drained and having more back pain. He is taking narcotics fairly regularly but not using them [id number]-[id number] and anything for breakthrough at this time. Patient having a hard time getting around due to the pain. He feels since his abdominal distention has gotten worse this may be contributing to it as well. He has no other complaints at this time. Denies any nausea vomiting fever sweats chills shortness of breath or chest pain. Patient is post to be at on Tuesday for discussion about a clinical trial for his management of his cancer. Allergies and Home Medications Allergies Coded Allergies: morphine (Verified Allergy, Mild, rash, 11/25/17) Patient Home Medication List Home Medication List Reviewed: Yes Apixaban (Eliquis) 5 Mg Tablet, 5 MG PO BID Prescribed by: TROY FLORIAN on 06/14/21 0844 Glipizide (Glipizide) 10 Mg Tablet, 10 MG PO BID, (Reported) Entered as Reported by: KENRICK GARCIA on 11/25/17 1544 Hydrocodone/Acetaminophen (Hydrocodone-Acetamin 10-325 mg) 10 Mg-325 Mg Tablet, 1 EACH PO Q4H, (Reported) Entered as Reported by: SHRUTHI RAMIRES on 11/08/22 1611 Levothyroxine Sodium (Levothyroxine Sodium) 175 Mcg Tablet, 175 MCG PO DAILY, (Reported) Entered as Reported by: KENRICK GARCIA on 11/25/17 1544 Metformin HCl (Metformin HCl) 1,000 Mg Tablet, 1,000 MG PO BID, (Reported) Entered as Reported by: KENRICK GARCIA on 11/25/17 1544 Omeprazole (Omeprazole) 40 Mg Capsule., 40 MG PO DAILY Prescribed by: ELROY MAGALLON on 10/12/21 1749 Promethazine HCl (Promethazine Tablet) 25 Mg Tablet, 25 MG PO Q8H PRN for NAUSEA/VOMITING Prescribed by: ELROY MAGALLON on 10/12/21 1651 Warfarin Sodium (Warfarin Sodium) 5 Mg Tablet, 5 MG PO HS, (Reported) Entered as Reported by: KENRICK GARCIA on 11/25/17 1544 [Oxycontin] Unknown Strength , Unknown Dose PO, (Reported) Entered as Reported by: SHRUTHI RAMIRES on 11/08/22 1611 Past Ldgnfqq-Qfhvhm-Lshwyw Hx Patient Social History 2nd Hand Smoke Exposure: No Recent Hopitalizations: No Alcohol Use?: No Immunizations Up To Date Tetanus Booster (TDap): Unknown Seasonal Allergies Seasonal Allergies: Yes Surgeries History of Surgeries: Yes (knee scope, port) Respiratory History of Respiratory Disorde: Yes Respiratory Disorders: Pulmonary Embolism Cardiovascular History of Cardiac Disorders: Yes Cardiac Disorders: Deep Vein Thrombosis, High Cholesterol Neurological History of Neurological Disord: No Genitourinary History of Genitourinary Disor: Yes Genitourinary Disorders: Kidney Stones Gastrointestinal History of Gastrointestinal Di: No Musculoskeletal History of Musculoskeletal Dis: No Endocrine History of Endocrine Disorders: Yes Endocrine Disorders: Diabetes, Non-Insulin dep HEENT History of HEENT Disorders: No Loss of Vision: Denies Hearing Impairment: Denies Cancer History of Cancer: No Psychosocial History of Psychiatric Problem: No Integumentary History of Skin or Integumenta: No Blood Transfusions History of Blood Disorders: No Reviewed Nursing Assessment Reviewed/Agree w Nursing PMH: Yes Family Medical History Significant Family History: No Pertinent Family Hx Review of Systems-General Constitutional: No chills, No diaphoresis, No fever EENTM: No blurred vision, No double vision Respiratory: No cough, No dyspnea on exertion Cardiovascular: No chest pain, No palpitations Gastrointestinal: abdominal pain, other (ascites) Genitourinary: No decreased output, No discharge Musculoskeletal: back pain; No joint pain Skin: No change in color, No change in hair/nails Psychiatric/Neurological: Denies Anxiety, Denies Depressed, Denies Emotional Problems All Other Systems Reviewed Negative Unless Noted: Yes (Negative excepted noted.) Physical Exam-General Problems Physical Exam Vital Signs Vital Signs - First Documented 11/17/22 09:00 Temp 36.7 Pulse 95 Resp 18 B/P (MAP) 120/76 (91) Pulse Ox 97 Capillary Refill : Less Than 3 Seconds General Appearance: mild distress, obese HEENT: PERRL/EOMI, normal ENT inspection Neck: non-tender, supple Respiratory: chest non-tender, no respiratory distress, no accessory muscle use Cardiovascular: regular rate, rhythm, no JVD Gastrointestinal: distended, tenderness (minimal abdominal pain on palpation) Rectal: deferred Back: other (tenderness back) Extremities: no calf tenderness, swelling Neurologic/Psychiatric: alert, normal mood/affect, oriented x 3 Skin: normal color, warm/dry Lymphatic: no adenopathy Data Review Labs Laboratory Tests 11/17/22 09:20: White Blood Count 11.4H, Red Blood Count 2.87L, Hemoglobin 11.2L, Hematocrit 33L , Mean Corpuscular Volume 113H, Mean Corpuscular Hemoglobin 39H, Mean Corpuscular Hemoglobin Concent 35, Red Cell Distribution Width 15.2H, Platelet Count 105L, Mean Platelet Volume 10.8, Immature Granulocyte % (Auto) 0, Neutrophils (%) (Auto) 64, Lymphocytes (%) (Auto) 24, Monocytes (%) (Auto) 12, Eosinophils (%) (Auto) 0, Basophils (%) (Auto) 0, Neutrophils # (Auto) 7.3, Lymphocytes # (Auto) 2.7, Monocytes # (Auto) 1.3H, Eosinophils # (Auto) 0.0, Basophils # (Auto) 0.0, Immature Granulocyte # (Auto) 0.1, Percent Immature Platelet Fraction 4.9, Prothrombin Time 17.3H, INR Comment 1.4, Activated Partial Thromboplast Time 30, Sodium Level 139, Potassium Level 3.4L, Chloride Level 107, Carbon Dioxide Level 20L, Anion Gap 12, Blood Urea Nitrogen 25H, Creatinine 0.72, Estimat Glomerular Filtration Rate 101, BUN/Creatinine Ratio 35, Glucose Level 86, Calcium Level 8.6, Corrected Calcium 9.6, Magnesium Level 1.6, Total Bilirubin 1.1H, Aspartate Amino Transf (AST/SGOT) 74H, Alanine Aminotransferase (ALT/SGPT) 52, Alkaline Phosphatase 188H, Total Protein 6.8, Albumin 2.8L Assessment/Plan Assessment/Plan Assessment/Plan Pancreatic cancer Symptomatic ascites Back pain Ultrasound at bedside which did have ascites however there was not a large enough pocket for drainage at this time. I do not think that draining this at this time would relieve his pain or is the cause of his pain at this time. I recommended taking his pain medications as prescribed also using the breakthrough pain that he has prescribed. Patient is concerned for increasing repeat ultrasound on Tuesday and if he needs we will drain. Patient agrees with plan. YU DANIELS DO Nov 17, 2022 11:48
[2022-11-17 14:33] VITALS: BP 111/58
== END 2022-11-17 14:41 | disposition home or self-care (01) ==
LOC: EDUNIT# 08:39 → ER 08:40
DX: C25.9 Malignant neoplasm of pancreas, unspecified (principal); R18.0 Malignant ascites; G89.29 Other chronic pain; M54.50 Low back pain, unspecified; E66.9 Obesity, unspecified; Z68.33 Body mass index [BMI] 33.0-33.9, adult; Z28.310 Unvaccinated for COVID-19
CPT/HCPCS: 36415; 36556; 80053; 83735; 85025; 85610; 85730

== ENCOUNTER 2022-11-19 07:42 | Outpatient (CLI) | payer MEDICARE, OTHER ==
[~2022-11-19] VITALS: Ht 185.5 cm; Wt 124.0 kg
[2022-11-19] MEDS ORDERED: LIDOCAINE 1% INJ 20 ML VIAL ONE (07:59)
[2022-11-19 08:03] VITALS: BP 124/76
[2022-11-19] MEDS ORDERED: LIDOCAINE 1% INJ 20 ML VIAL INJ ONE (09:00)
[2022-11-19] MEDS ORDERED: ALBUMIN 25% 25 GM/100 ML 100 ML IV ONE (09:00)
--- NOTE | 2022-11-19 12:24 | Progress Note-Post Operative ---
Post-Operative Progess Note Surgeon (s)/Riverboat Captain (s) Surgeon YU MICHAELS DO Riverboat Captain: NA Pre-Operative Diagnosis Ascites Post-Operative Diagnosis SAME Procedure & Operative Findings Date of Procedure 11/19/22 Procedure Performed/Findings DATE OF SERVICE: 11/19/22 PREOPERATIVE DIAGNOSIS: Symptomatic abdominal ascites. POSTOPERATIVE DIAGNOSIS: Symptomatic abdominal ascites. PROCEDURE: Ultrasound-guided paracentesis. SURGEON: Yu Michaels DO ANESTHESIA: Local. ESTIMATED BLOOD LOSS: Scant. COMPLICATIONS: None. INDICATIONS: The patient is a 66 male with metastatic pancreatic cancer. The patient understands risks and benefits of procedure and wished to proceed. Consent was signed and on the chart. DESCRIPTION OF PROCEDURE: The patient was prepped and draped in sterile fashion after ultrasound was used to isolate the best pocket for drainage. Local anesthetic was infiltrated. An 11 blade scalpel was then used to make a small incision. The Gdhh-Q-Rtnvmpaw needle and catheter were then advanced through the abdominal wall until straw-colored fluid was withdrawn. The catheter was advanced, and the needle was removed. The 7500 mL of straw-colored fluid was withdrawn. The catheter was then removed, and a sterile bandage was applied. The patient tolerated procedure well without any complications. Anesthesia Type 1%lidocaine 5mL Estimated Blood Loss Estimated blood loss (mL): minimal Specimens/Packing Specimens Removed fluid for cytology YU MICHAELS DO Nov 19, 2022 12:24
== END 2022-11-19 12:06 ==
LOC: RAD 07:42
PROVIDERS: ATTEND Student in an Organized Health Care Education/Training Program
DX: R18.8 Other ascites (principal)
CPT/HCPCS: 49083; 96365; 96366

== ENCOUNTER → 2022-12-01 | Outpatient (CLI) | payer MEDICARE, OTHER | END | disposition home or self-care (01) | LOC: PREOP 05:49 | PROVIDERS: ATTEND Surgery | DX: Z01.818 Encounter for other preprocedural examination (principal) ==

== ENCOUNTER 2022-12-02 09:38 | Day surgery (SDC) | payer MEDICARE, OTHER ==
[~2022-12-02] VITALS: Ht 187.9 cm; Wt 124.0 kg
[2022-12-02] VITALS (8 sets, daily range): BP systolic 89–115; BP diastolic 61–72
[2022-12-02] MEDS: LACTATED RINGERS 1,000 ML IV PRN ×2 (10:18→12:30)
[2022-12-02] MEDS ORDERED: ceFAZolin INJECTION 2,000 MG in NS (IVPB) 50 ML IV ONE (10:30)
--- NOTE | 2022-12-02 11:09 | Progress Note-Pre Operative ---
Pre-Operative Progress Note Date H&P Reviewed: Dec 02, 2022 Time H&P Reviewed: 11:08 History & Physical: H&P Reviewed, Patient Examed, No changes noted Pre-Operative Diagnosis: ASCITES- SYMPTOMATIC YU DANIELS DO Dec 02, 2022 11:09
[2022-12-02] MEDS ORDERED: PROPOFOL INJECTION 50 ML IV ONE (13:04)
--- NOTE | 2022-12-02 13:10 | Progress Note-Post Operative ---
Post-Operative Progess Note Surgeon (s)/Legal Operations Manager (s) Surgeon YU DANIELS DO Legal Operations Manager: na Pre-Operative Diagnosis ASCITES- SYMPTOMATIC Post-Operative Diagnosis same Procedure & Operative Findings Date of Procedure 12/02/22 Procedure Performed/Findings u/s guided pleur-x catheter placement. Anesthesia Type mac c local Estimated Blood Loss Estimated blood loss (mL): minimal Specimens/Packing Specimens Removed na YU DANIELS DO Dec 02, 2022 13:10
--- NOTE | 2022-12-02 13:12 | Discharge Inst-Simple/Standard ---
Discharge Inst-Standard Patient Instructions/Follow Up Plan of Care/Instructions/FU: Xenia 1 week. Activity as Tolerated: No Discharge Diet: Regular Diet Other Inst to Patient Follow up Appt: Make appointment for 2 week. Instructions: No lifting greater than 10 pounds. No strenuous activity. May shower in 24 hours, no tub bath or soaking. Use incentive spirometer at home as directed. No Smoking Skin/Wound Care: Keep area clean and dry. Drain tube 1 bottle daily unless don't get a full bottle out. If need to use a second bottle may do so if abdominal circumference continues to increase. If less than 500 mL out in a day skip a day. Symptoms to Report: Appetite Changes, Extremity Discoloration, Numbness/Tingling, Swelling Increased, Bleeding Excessive, Eyesight Changes, Pain Increased, Urine Color Change, Constipation(Persistent), Fever over 101 degree F, Pain/Pressure in chest, Urinating Difficulty, Cough Up/Vomit Blood, Heart Beat Irreg/Pounding, Pain/Pressure in jaw, Vaginal Bleeding Increase, Cramps in feet or legs, Lightheadedness, Pain/Pressure in shoulder, Diarrhea(Persistent), Memory Changes Suddenly, Questions/Concerns, Weight gain consecutive days, Dizziness/Fainting, Nausea/Vomiting, Shortness of Breath, Weight gain over 2 pounds If questions or concerns contact your physician Or seek help at emergency department. YU DANIELS DO Dec 02, 2022 13:12
--- NOTE | 2022-12-02 13:22 | Anesthesia-General Post-Op ---
MAC Patient Condition Mental Status/LOC: Same as Preop Cardiovascular: Satisfactory Nausea/Vomiting: Absent Respiratory: Satisfactory Pain: Controlled Complications: Absent Post Op Complications Complications None Follow Up Care/Instructions Patient Instructions None needed. Anesthesiology Discharge Order Discharge Order Patient is doing well, no complaints, stable vital signs, no apparent adverse anesthesia problems. No complications reported per nursing. DALY VILLARREAL CRNA Dec 02, 2022 13:22
[2022-12-02] MEDS ORDERED: ONDANSETRON 4 MG/2 ML (SDV) Z0FRAN IVP PRN (13:30)
[2022-12-02] MEDS ORDERED: fentaNYL INJ 100 MCG/2 ML AMP IVP ONE (13:30)
--- NOTE | 2022-12-02 13:41 | Diagnostic Imaging Report ---
INDICATION: Ascites. Sonographic evaluation of all 4 quadrants of the abdomen was performed. There is a large amount of ascites in the left upper and right upper quadrants. There is also large ascites in the left lower quadrant. A marker was placed in the left lower quadrant for Dr. Michaels to performed PleurX catheter placement. IMPRESSION: A large abdominal ascites. Marking was provided prior to PleurX catheter placement. Dictated by: Dictated on workstation # [id number]
--- NOTE | 2022-12-02 13:50 | OPERATIVE REPORT ---
DATE OF SERVICE: 12/02/2022 PREOPERATIVE DIAGNOSIS: Symptomatic ascites. POSTOPERATIVE DIAGNOSIS: Symptomatic ascites. PROCEDURE: Ultrasound-guided PleurX catheter placement. SURGEON: Yu Michaels DO ANESTHESIA: MAC with local. ESTIMATED BLOOD LOSS: Minimal. COMPLICATIONS: None. INDICATIONS: The patient is a 66-year-old male with recurrent ascites. He has got pancreatic cancer and it has been determined that the cytology has demonstrated malignant ascites. He understands risks and benefits of procedure and wishes to proceed. Consent was signed in chart. DESCRIPTION OF PROCEDURE: The patient was taken to the operating suite where he was prepped and draped in sterile fashion. Timeout was performed. Ultrasound was used to isolate the largest fluid pocket. Local anesthetic was infiltrated in this area and also along the tract for the tube to be placed. An 11-blade scalpel was used to make a small skin incision on both sides for the catheter to go into the abdomen. Angiocath needle was inserted. Straw-colored fluid was withdrawn. The catheter was then advanced. The needle was removed. The wire was inserted through the sheath and the sheath was then removed. This was secured. The PleurX catheter was then tunneled from the superior incision to the inferior incision where the wire is. Dilator sheath was then advanced over the wire and the wire was removed along with the dilator. The catheter was placed through the sheath and the sheath was then removed. The incision [ ] was closed with 4-0 absorbable suture. The catheter was secured with 3-0 silk suture. A total of [ ] of straw-colored fluid was withdrawn. The area was washed and dried and sterile bandages were applied. The patient tolerated the procedure well without any complications and was taken to recovery room in stable condition. Job ID: [id number] DocumentID: [id number] Dictated Date: 12/02/2022 13:15:57 Mail Room Clerk Date: 12/02/2022 13:48:00 Dictated By: YU MICHAELS DO
[2022-12-04] MEDS ORDERED: AMOX1TAB12 PO (10:47)
== END 2022-12-02 14:25 ==
LOC: SDC 09:38
PROVIDERS: ATTEND Surgery
DX: R18.8 Other ascites (principal); C25.9 Malignant neoplasm of pancreas, unspecified; C78.7 Secondary malignant neoplasm of liver and intrahepatic bile duct; Z28.310 Unvaccinated for COVID-19; Z79.01 Long term (current) use of anticoagulants
CPT/HCPCS: 32550; 76942; 82947; 84132; 87081; C1729; 36415

== ENCOUNTER 2022-12-03 16:09 | Observation (INO) | payer MEDICARE, OTHER ==
[~2022-12-03] VITALS: Ht 184 cm; Wt 113.4 kg
--- NOTE | 2022-12-03 16:25 | ED Lower Extremity ---
General Stated Complaint: LEFT LEG PAIN/SWELLING/REDNESS/NUMBNESS Source: patient Exam Limitations: no limitations (MINOO CAREY) History of Present Illness Date Seen by Provider: Dec 03, 2022 Time Seen by Provider: 16:22 Initial Comments Patient is a 66-year-old male with a history of pancreatic cancer who presents the ED for left leg pain swelling and numbness. Noted increased redness and swelling to the left ankle and foot 3 weeks ago. According to at bedside they noticed increased redness over the past few days of the left leg. Known history of blood clot. Patient Was on warfarin 3 weeks ago but switched to Eliquis which she has been taking daily. Patient had a paracentesis performed by Dr. Michaels yesterday. Patient denies of any chest pain, shortness of breath, cough, fever, chills, nausea, vomit, diarrhea. Scheduled to follow-up next at for lab work and potential liver biopsy and a potential candidate for his cancer. (MINOO CAREY) Allergies and Home Medications Allergies Coded Allergies: morphine (Verified Allergy, Mild, rash, 12/02/22) Patient Home Medication List Home Medication List Reviewed: Yes (MINOO CAREY) Amoxicillin/Potassium Clav (Amox Tr-K Clv 875-125 mg Tab) 875 Mg-125 Mg Tablet, 1 EACH PO BID Prescribed by: NELIDA PEREA on 12/04/22 1047 Apixaban (Eliquis) 5 Mg Tablet, 5 MG PO BID Prescribed by: TROY FLORIAN on 06/14/21 0844 Glipizide (Glipizide) 10 Mg Tablet, 10 MG PO BID, (Reported) Entered as Reported by: KENRICK GARCIA on 11/25/17 1544 Hydrocodone/Acetaminophen (Hydrocodone-Acetamin 10-325 mg) 10 Mg-325 Mg Tablet, 1 EACH PO Q4H, (Reported) Entered as Reported by: SHRUTHI RAMIRES on 11/08/22 1611 Levothyroxine Sodium (Levothyroxine Sodium) 175 Mcg Tablet, 175 MCG PO DAILY, (Reported) Entered as Reported by: KENRICK GARCIA on 11/25/17 1544 Metformin HCl (Metformin HCl) 1,000 Mg Tablet, 1,000 MG PO BID, (Reported) Entered as Reported by: KENRICK GARCIA on 11/25/17 1544 Omeprazole (Omeprazole) 40 Mg Capsule.dr, 40 MG PO DAILY Prescribed by: ELROY MAGALLON on 10/12/21 1749 Promethazine HCl (Promethazine Tablet) 25 Mg Tablet, 25 MG PO Q8H PRN for NAUSEA/VOMITING Prescribed by: ELROY MAGALLON on 10/12/21 1651 [Oxycontin] Unknown Strength , Unknown Dose PO, (Reported) Entered as Reported by: SHRUTHI RAMIRES on 11/08/22 1611 Discontinued Medications Warfarin Sodium (Warfarin Sodium) 5 Mg Tablet, 5 MG PO HS, (Reported) Discontinued Reason: No Longer Taking Entered as Reported by: KENRICK GARCIA on 11/25/17 154 Review of Systems Constitutional: No chills, No diaphoresis, No malaise, No weakness EENTM: No ear pain, No blurred vision, No double vision Respiratory: No cough, No dyspnea on exertion Cardiovascular: No chest pain, No edema Gastrointestinal: No abdominal pain, No diarrhea, No nausea, No vomiting Genitourinary: No decreased output, No discharge Musculoskeletal: No back pain, No joint pain Skin: change in color (MINOO CAREY) All Other Systems Reviewed Negative Unless Noted: Yes (MINOO CAREY) Past Tpdsegg-Ctzmbz-Wmstoz Hx Immunizations Up To Date Tetanus Booster (TDap): Unknown First/Initial COVID19 Vaccinat: n/a Second COVID19 Vaccination Kumar: n/a Third COVID19 Vaccination Date: n/a (MINOO CAREY) Seasonal Allergies Seasonal Allergies: Yes (MINOO CAREY) Past Medical History Surgery/Hospitalization HX: HX LEG BLOOD CLOT RECENT DX OF PANCREATIC CA L KNEE REPLACEMENT Surgeries: Yes (knee scope, port,LKR) Respiratory: Yes Pulmonary Embolism Currently Using CPAP: No Currently Using BIPAP: No Cardiac: Yes Atrial Fibrillation, Deep Vein Thrombosis, High Cholesterol Neurological: No Genitourinary: Yes Kidney Stones Gastrointestinal: No Musculoskeletal: No Endocrine: Yes Hypothyroidsim, Diabetes, Non-Insulin dep HEENT: No Loss of Vision: Denies Hearing Impairment: Denies Cancer: Yes (pancreatic is primary and spread to liver and spleen) Liver, Pancreatic Psychosocial: No Integumentary: Yes (bed sore) Recent Skin Changes Blood Disorders: Yes (blood clots) (MINOO CAREY) Physical Exam Vital Signs Vital Signs - First Documented 12/03/22 16:16 Temp 35.6 Pulse 98 Resp 25 B/P (MAP) 117/73 (88) Pulse Ox 99 O2 Delivery Room Air Capillary Refill : Height, Weight, BMI Height: 6'1.00" Weight: 348lbs. oz. 157.328617lf; 35.12 BMI Method:Stated General Appearance: WD/WN, no apparent distress HEENT: PERRL/EOMI, normal ENT inspection, TMs normal, pharynx normal Neck: non-tender, full range of motion, supple Cardiovascular: regular rate, rhythm, no edema, no gallop, no JVD Respiratory: chest non-tender, lungs clear, normal breath sounds, no respiratory distress, no accessory muscle use Back: normal inspection, no CVA tenderness, no vertebral tenderness Legs: left leg other (Left lower leg swelling with erythema. Cap refill less then 2. Dorsalis pedis +2, posterior tibialis +2. No active drainage. Pitting edema right lower extremity) Neurologic/Psychiatric: soil conservation aide II-XII nml as tested, no motor/sensory deficits, alert, normal mood/affect, oriented x 3 Skin: other (Erythema warmth noted to the left lower extremity mid tib-fib to the foot.) (MINOO CAREY) Vital Signs Vital Signs - First Documented 12/03/22 16:16 Temp 35.6 Pulse 98 Resp 25 B/P (MAP) 117/73 (88) Pulse Ox 99 O2 Delivery Room Air (ERIN ADAMS MD) Progress/Results/Core Measures Results/Orders Lab Results Laboratory Tests Test 12/03/22 16:43 12/03/22 18:23 12/03/22 20:34 Range/Units White Blood Count 11.4 H 4.3-11.0 10^3/uL Red Blood Count 3.03 L 4.30-5.52 10^6/uL Hemoglobin 11.8 L 13.3-17.7 g/dL Hematocrit 34 L 40-54 % Mean Corpuscular Volume 112 H 80-99 fL Mean Corpuscular Hemoglobin 39 H 25-34 pg Mean Corpuscular Hemoglobin Concent 35 32-36 g/dL Red Cell Distribution Width 14.5 10.0-14.5 % Platelet Count 70 L 130-400 10^3/uL Mean Platelet Volume 11.3 9.0-12.2 fL Immature Granulocyte % (Auto) 0 % Neutrophils (%) (Auto) 73 42-75 % Lymphocytes (%) (Auto) 14 12-44 % Monocytes (%) (Auto) 12 0-12 % Eosinophils (%) (Auto) 1 0-10 % Basophils (%) (Auto) 0 0-10 % Neutrophils # (Auto) 8.3 H 1.8-7.8 10^3/uL Lymphocytes # (Auto) 1.6 1.0-4.0 10^3/uL Monocytes # (Auto) 1.3 H 0.0-1.0 10^3/uL Eosinophils # (Auto) 0.1 0.0-0.3 10^3/uL Basophils # (Auto) 0.0 0.0-0.1 10^3/uL Immature Granulocyte # (Auto) 0.1 0.0-0.1 10^3/uL Percent Immature Platelet Fraction 8.5 H 0.0-7.6 % Prothrombin Time 17.5 H 12.2-14.7 SEC INR Comment 1.4 0.8-1.4 Activated Partial Thromboplast Time 41 H 24-35 SEC Sodium Level 137 135-145 MMOL/L Potassium Level 5.1 H 3.6-5.0 MMOL/L Chloride Level 102 98-107 MMOL/L Carbon Dioxide Level 19 L 21-32 MMOL/L Anion Gap 16 H 5-14 MMOL/L Blood Urea Nitrogen 51 H 7-18 MG/DL Creatinine 1.63 H 0.60-1.30 MG/DL Estimat Glomerular Filtration Rate 46 BUN/Creatinine Ratio 31 Glucose Level 133 H 70-105 MG/DL Calcium Level 8.7 8.5-10.1 MG/DL Corrected Calcium 9.9 8.5-10.1 MG/DL Total Bilirubin 0.7 0.1-1.0 MG/DL Aspartate Amino Transf (AST/SGOT) 56 H 5-34 U/L Alanine Aminotransferase (ALT/SGPT) 27 0-55 U/L Alkaline Phosphatase 217 H 40-136 U/L C-Reactive Protein High Sensitivity 13.18 H 0.00-0.50 MG/DL Total Protein 6.5 6.4-8.2 GM/DL Albumin 2.5 L 3.2-4.5 GM/DL Smear Scan Lactic Acid Level 5.51 *H 4.59 *H 0.50-2.00 MMOL/L Micro Results Microbiology 12/03/22 Blood Culture - Preliminary, Resulted No growth 12/03/22 Blood Culture - Preliminary, Resulted No growth My Orders Orders - MINOO CAREY Us Venous Lower Ext Lt (12/03/22 16:15) Cbc With Automated Diff (12/03/22 16:22) Comprehensive Metabolic Panel (12/03/22 16:22) Partial Thromboplastin Time (12/03/22 16:22) Protime With Inr (12/03/22 16:22) Blood Culture (12/03/22 18:13) Lactic Acid Analyzer (12/03/22 18:13) Vancomycin Injection (Vancomycin Injecti (12/03/22 18:15) Piperacillin Sodium/Tazobactam (Zosyn Vi (12/03/22 18:30) Ns Iv 1000 Ml (Sodium Chloride 0.9%) (12/03/22 18:45) Blood Culture (12/03/22 18:45) Hydrocodone/Apap 10/325 Tablet (Lortab 1 (12/03/22 19:35) Lactic Acid Analyzer (12/03/22 20:27) Oxycodone Extended Release Tab (Oxyconti (12/03/22 20:45) Vital Signs/I&O 12/03/22 16:16 Temp 35.6 Pulse 98 Resp 25 B/P (MAP) 117/73 (88) Pulse Ox 99 O2 Delivery Room Air (MINOO CAREY) Lab Results Laboratory Tests Test 12/03/22 16:43 12/03/22 18:23 12/03/22 20:34 Range/Units White Blood Count 11.4 H 4.3-11.0 10^3/uL Red Blood Count 3.03 L 4.30-5.52 10^6/uL Hemoglobin 11.8 L 13.3-17.7 g/dL Hematocrit 34 L 40-54 % Mean Corpuscular Volume 112 H 80-99 fL Mean Corpuscular Hemoglobin 39 H 25-34 pg Mean Corpuscular Hemoglobin Concent 35 32-36 g/dL Red Cell Distribution Width 14.5 10.0-14.5 % Platelet Count 70 L 130-400 10^3/uL Mean Platelet Volume 11.3 9.0-12.2 fL Immature Granulocyte % (Auto) 0 % Neutrophils (%) (Auto) 73 42-75 % Lymphocytes (%) (Auto) 14 12-44 % Monocytes (%) (Auto) 12 0-12 % Eosinophils (%) (Auto) 1 0-10 % Basophils (%) (Auto) 0 0-10 % Neutrophils # (Auto) 8.3 H 1.8-7.8 10^3/uL Lymphocytes # (Auto) 1.6 1.0-4.0 10^3/uL Monocytes # (Auto) 1.3 H 0.0-1.0 10^3/uL Eosinophils # (Auto) 0.1 0.0-0.3 10^3/uL Basophils # (Auto) 0.0 0.0-0.1 10^3/uL Immature Granulocyte # (Auto) 0.1 0.0-0.1 10^3/uL Percent Immature Platelet Fraction 8.5 H 0.0-7.6 % Prothrombin Time 17.5 H 12.2-14.7 SEC INR Comment 1.4 0.8-1.4 Activated Partial Thromboplast Time 41 H 24-35 SEC Sodium Level 137 135-145 MMOL/L Potassium Level 5.1 H 3.6-5.0 MMOL/L Chloride Level 102 98-107 MMOL/L Carbon Dioxide Level 19 L 21-32 MMOL/L Anion Gap 16 H 5-14 MMOL/L Blood Urea Nitrogen 51 H 7-18 MG/DL Creatinine 1.63 H 0.60-1.30 MG/DL Estimat Glomerular Filtration Rate 46 BUN/Creatinine Ratio 31 Glucose Level 133 H 70-105 MG/DL Calcium Level 8.7 8.5-10.1 MG/DL Corrected Calcium 9.9 8.5-10.1 MG/DL Total Bilirubin 0.7 0.1-1.0 MG/DL Aspartate Amino Transf (AST/SGOT) 56 H 5-34 U/L Alanine Aminotransferase (ALT/SGPT) 27 0-55 U/L Alkaline Phosphatase 217 H 40-136 U/L C-Reactive Protein High Sensitivity 13.18 H 0.00-0.50 MG/DL Total Protein 6.5 6.4-8.2 GM/DL Albumin 2.5 L 3.2-4.5 GM/DL Smear Scan Lactic Acid Level 5.51 *H 4.59 *H 0.50-2.00 MMOL/L My Orders Orders - ERIN ADAMS MD Ns Iv 1000 Ml (Sodium Chloride 0.9%) (12/03/22 19:45) Sputum Culture (12/03/22 20:04) Urinalysis (12/03/22 20:04) Urine Culture (12/03/22 20:04) Chest 1 View, Ap/Pa Only (12/03/22 20:04) Vital Signs Adult Sepsis Patie Q15M (12/03/22 20:04) O2 (12/03/22 20:04) Remove Rings In Anticipation O (12/03/22 20:04) Hs C Reactive Protein (12/03/22 20:04) Code/Resuscitation (12/03/22 21:56) Ed Admission (Communication) (12/03/22 21:56) Medications Given in ED Current Medications Medications Dose Ordered Sig/Ashley Route Start Time Stop Time Status Last Admin Dose Admin Oxycodone HCl 30 mg ONCE ONCE PO 12/03/22 20:45 12/03/22 20:47 DC 12/03/22 21:00 30 MG Vital Signs/I&O 12/03/22 16:16 Temp 35.6 Pulse 98 Resp 25 B/P (MAP) 117/73 (88) Pulse Ox 99 O2 Delivery Room Air 12/04/22 00:00 Intake Total 1350 ml Balance 1350 ml (ERIN ADAMS MD) Progress Progress Note : Progress Note Care of this patient was assumed from AVANI Gleason for further management. Sorting through the disposition options and efforts was a difficult process. Ultimately, Paul and I did not feel it was appropriate to send him back home. Patient was requesting admission as an effort to try to improve his health enough that he could possibly qualify for the MET pancreatic cancer mutation trial at [facility] versus engaging in palliative chemotherapy. Patient requested a modified CODE STATUS forbidding CPR and intubation but allowing defibrillation or chemical code. Antibiotic therapy was started with Zosyn and vancomycin. Dr. Nguyễn declined admission upon my further discussion with her siting his complicated cancer history with poor prognosis. As stated earlier, [facility] declined admission as no advanced therapies requiring transfer would be performed by them until infection was resolved. As an alternative, case was reviewed with Dr. Perea who excepted admission. I did have cierra discussion with the patient and his about realistic expectations, prognosis, and hospice care. Although severe sepsis is within the list of differential diagnoses, his lab findings may also represent lactic acidosis secondary to poor intravascular volume and acute kidney injury. Patient has had rapid fluid shifting with paracentesis and diuretic therapy. He received 2 L of normal saline while in the ER. I also discussed the case with Dr. Kenny who was offering to see the patient in consultation and answer any questions. (ERIN DAAMS MD) Diagnostic Imaging Diagonstic Imaging: Ultrasound Plain Films/CT/US/NM/MRI: leg Comments [id number] PT STATUS: REG ER : 1955 PHYSICIAN: MINOO CAREY ADMIT DATE: 12/03/22/ER Signed Date of Exam:12/03/22 US VENOUS LOWER EXT LT EXAMINATION: US Lower Extremity Venous Duplex Left. TECHNIQUE: Multiple real-time grayscale images were obtained over the left lower extremity in various projections. Additional spectral analysis and color Doppler duplex images were also obtained. HISTORY: Left leg pain and swelling. COMPARISON: None available. FINDINGS: Left: The common femoral, superficial femoral, popliteal, peroneal, posterior tibial, and greater saphenous veins demonstrate normal flow, augmentation, compressibility. IMPRESSION: 1. No DVT of the left lower extremity. Dictated by: Dictated on workstation # [id number] Dict: 12/03/22 1645 Trans: 12/03/221714 [id number] [id number] Interpreted by: ETELVINA GALLARDO DO Electronically signed by: ETELVINA GALLARDO DO 12/03/22 1715 Diagonstic Imaging: Xray Plain Films/CT/US/NM/MRI: chest Comments [id number] PT STATUS: REG ER : 1955 PHYSICIAN: ERIN ADAMS MD ADMIT DATE: 12/03/22/ER Signed Date of Exam:12/03/22 CHEST 1 VIEW, AP/PA ONLY INDICATION: Sepsis. EXAMINATION: Frontal chest obtained at 8:04 p.m. COMPARISON: 06/14/2021. FINDINGS: Heart and mediastinal silhouette are normal in appearance. The lungs are clear. There is no pneumothorax or pleural fluid. There is a Port-A-Cath in place over the right chest with tip overlying the SVC. IMPRESSION: No acute process in the chest. Dictated by: Dictated on workstation # [id number] Dict: 12/03/222024 Trans: 12/03/222043 PJE [id number] Interpreted by: IGNACIO MONROE MD Electronically signed by: IGNACIO MONROE MD 12/03/222043 (ERIN ADAMS MD) Departure Communication (Admissions) Time/Spoke to Admitting Phy: 21:22 Dr. Perea (ERIN ADAMS MD) Communication (PCP) Reviewed previous ER visits, H&P, lab testing. Differential diagnosis of DVT versus cellulitis. currently follows Dr. Angulo for pancreatic cancer with metastasis. Had a peritoneal drain placed for paracentesis. Had peritoneal drain placed and paracentesis performed yesterday by Dr. Michaels yesterday. Had near 4 L removed. Patient also had about 2.7 L removed today. Currently on hospice. Increasing left lower leg pain swelling and numbness with erythema. On exam erythema and swelling noted. Cap refill less than 2. Dorsalis pedis and posterior tibialis +2. Cellulitis versus DVT. Lactic acid, blood cultures, ultrasound CBC, CMP was ordered. Patient was started on Zosyn and vancomycin concern for cellulitis. Ultrasound was negative for DVT. Currently on anticoagulant. CBC showed slight elevated white blood count 11.4. Hemoglobin 11.8, platelets 70. Creatinine 1.63, GFR 46. Lactic acid 5.51. He is afebrile. Slightly tachycardic. Started on IV fluids concern for septic shock. Did have a soft blood pressure but remain in the lower 100s systolic. He is alert and orient x3. GCS of 15. He has no current chest pain or short of breath or abdominal pain. Patient is awaiting a clinical trial next week at [facility] if his lab work improved such as his platelets. Currently on hospice. Hospice nurse was contacted. Concern for patient's cellulitis and potential septic shock. I do think feel patient needs admission at this time for IV antibiotics IV fluids. Hospice nurse did come to the ER and revoked his hospice. Attempted to admit to Dr. Nguyễn who did not feel comfortable admitting patient secondary to his aggressive pancreatic cancer. Contacted [facility] where patient is scheduled to follow-up this upcoming week for clinical trial. They did not necessarily recommend inpatient and transfer as patient would only receive IV antibiotics at this time. Patient was discussed with Dr. Bauer who took over care and will continue finding placement. (MINOO CAREY) Impression Primary Impression: Acute kidney injury Additional Impressions: Lactic acidosis Cellulitis of leg, left Disposition: ADMITTED INPATIENT Condition: Stable Admissions Decision to Admit Reason: Admit from ER (General) Decision to Admit/Date: Dec 03, 2022 Time/Decision to Admit Time: 21:22 (ERIN ADAMS MD) Departure-Patient Inst. Referrals: [facility] (PCP/Family) Primary Care Physician Scripts Amoxicillin/Potassium Clav (Amox Tr-K Clv 875-125 mg Tab) 875 Mg-125 Mg Tablet 1 EACH PO BID for 10 Days, #20 TAB Prov: NELIDA PEREA MD 12/04/22 Copy Copies To 1: [facility] [place] Copies To 2: TANYA KENNY ZACHARY A PA Dec 03, 2022 16:25 ERIN ADAMS MD Dec 03, 2022 21:56
--- NOTE | 2022-12-03 16:46 | Diagnostic Imaging Report ---
EXAMINATION: US Lower Extremity Venous Duplex Left. TECHNIQUE: Multiple real-time grayscale images were obtained over the left lower extremity in various projections. Additional spectral analysis and color Doppler duplex images were also obtained. HISTORY: Left leg pain and swelling. COMPARISON: None available. FINDINGS: Left: The common femoral, superficial femoral, popliteal, peroneal, posterior tibial, and greater saphenous veins demonstrate normal flow, augmentation, compressibility. IMPRESSION: 1. No DVT of the left lower extremity. Dictated by: Dictated on workstation # [id number]
[2022-12-03 16:51] LABS: HEMATOCRIT 34 % (40-54); HEMOGLOBIN 11.8 g/dL (13.3-17.7); MEAN CORPUSCULAR HEMOGLOBIN 39 pg (25-34); MEAN CORPUSCULAR HGB CONC 35 g/dL (32-36); MEAN CORPUSCULAR VOLUME 112 fL (80-99)
[2022-12-03 16:53] LABS: BASOPHILS % (AUTO) 0 % (0-10); EOSINOPHILS # (AUTO) 0.1 10^3/uL (0.0-0.3); EOSINOPHILS % (AUTO) 1 % (0-10); LYMPHOCYTES # (AUTO) 1.6 10^3/uL (1.0-4.0); LYMPHOCYTES % (AUTO) 14 % (12-44); MEAN PLATELET VOLUME 11.3 fL (9.0-12.2); MONOCYTES # (AUTO) 1.3 10^3/uL (0.0-1.0); MONOCYTES % (AUTO) 12 % (0-12); NEUTROPHILS # (AUTO) 8.3 10^3/uL (1.8-7.8); NEUTROPHILS % (AUTO) 73 % (42-75); PLATELET COUNT 70 10^3/uL (130-400); WHITE BLOOD COUNT 11.4 10^3/uL (4.3-11.0)
[2022-12-03 17:06] LABS: ALBUMIN 2.5 GM/DL (3.2-4.5); INR 1.4 (0.8-1.4); POTASSIUM 5.1 MMOL/L (3.6-5.0); PROTHROMBIN TIME PATIENT 17.5 SEC (12.2-14.7)
[2022-12-03 17:07] LABS: CALCIUM 8.7 MG/DL (8.5-10.1)
[2022-12-03 17:09] LABS: TOTAL PROTEIN 6.5 GM/DL (6.4-8.2)
[2022-12-03 17:10] LABS: BILIRUBIN,TOTAL 0.7 MG/DL (0.1-1.0)
[2022-12-03 17:12] LABS: CREATININE SERUM 1.63 MG/DL (0.60-1.30)
[2022-12-03] MEDS ORDERED: VANCOMYCIN INJECTION 1,000 MG in NS (IVPB) 250 ML IV ONE (18:15)
[2022-12-03] MEDS ORDERED: PIPERACILLIN SODIUM/TAZOBACTAM 4.5 GM in NS (IVPB) 100 ML IV ONE (18:30)
[2022-12-03] MEDS ORDERED: NS IV 1000 ML 1,000 ML IV STA (18:45)
[2022-12-03] MEDS ORDERED: NS IV 1000 ML 1,000 ML IV SCH (19:45)
--- NOTE | 2022-12-03 20:28 | Diagnostic Imaging Report ---
INDICATION: Sepsis. EXAMINATION: Frontal chest obtained at 8:04 p.m. COMPARISON: 06/14/2021. FINDINGS: Heart and mediastinal silhouette are normal in appearance. The lungs are clear. There is no pneumothorax or pleural fluid. There is a Port-A-Cath in place over the right chest with tip overlying the SVC. IMPRESSION: No acute process in the chest. Dictated by: Dictated on workstation # [id number]
[2022-12-03] MEDS ORDERED: oxyCODONE ER 15 MG (oxyCONTIN CR) TAB PO ONE (20:45)
[2022-12-03 22:19] VITALS: BP 119/68
[2022-12-03] MEDS ORDERED: ACETAMINOPHEN 325 MG TABLET PO PRN (22:30)
[2022-12-03] MEDS ORDERED: ONDANSETRON 4 MG (ZOFRAN) ORAL DISSOLVE TAB PO PRN (22:30)
[2022-12-03] MEDS ORDERED: MILK OF MAGNESIA 400 MG/5 ML 30 ML UDC PO PRN (22:30)
[2022-12-03] MEDS ORDERED: polyethylene glycoL POWDER 17 GM (MIRALAX) PACK PO PRN (22:30)
[2022-12-03] MEDS ORDERED: ANTACID SUSP 30 ML UDC (MYLANTA) PO PRN (22:30)
[2022-12-03] MEDS ORDERED: ONDANSETRON 4 MG/2 ML (SDV) Z0FRAN IV PRN (22:30)
[2022-12-03] MEDS ORDERED: VANCOMYCIN INJECTION 0.1 MG in NS (IVPB) 250 ML IV SCH (22:30)
[2022-12-03] MEDS ORDERED: diphenhydrAMINE 50 MG/ML INJ (BENADRYL) IVP PRN (22:30)
[2022-12-03] MEDS ORDERED: LACTULOSE SYRUP 10GM/15ML (ENULOSE) 30ML UDC PO PRN (22:30)
[2022-12-03] MEDS ORDERED: BISACODYL 10 MG SUPP (DULCOLAX) PR PRN (22:30)
[2022-12-03] MEDS ORDERED: MELATONIN 3 MG TABLET PO PRN (22:30)
[2022-12-03] MEDS ORDERED: diphenhydrAMINE 25 MG TAB (BENADRYL) PO PRN (22:30)
[2022-12-03] MEDS: NS IV 1000 ML 1,000 ML IV SCH (23:08)
[2022-12-03] MEDS: oxyCODONE ER 15 MG (oxyCONTIN CR) TAB PO SCH (23:10)
[2022-12-03] MEDS ORDERED: VANCOMYCIN 1 GM/NS 250 ML IVPB IV ONE ×2 (23:15)
[2022-12-03] MEDS: PIPERACILLIN SODIUM/TAZOBACTAM 4.5 GM in NS (IVPB) 100 ML IV SCH (23:22)
[2022-12-03] MEDS: APIXABAN 5 MG (ELIQUIS) TABLET PO SCH (23:22)
[2022-12-03 23:38] VITALS: BP 104/62
[2022-12-04 01:52] LABS: BILIRUBIN,URINE NEGATIVE (NEGATIVE); CLARITY,URINE SL CLOUDY; COLOR,URINE DARK YELLOW; GLUCOSE, URINE (UA) NEGATIVE (NEGATIVE); KETONES,URINE NEGATIVE (NEGATIVE); NITRITE,URINE NEGATIVE (NEGATIVE); PH,URINE 5.5 (5-9); PROTEIN,URINE NEGATIVE (NEGATIVE)
[2022-12-04 02:04] LABS: BACTERIA,URINE NEGATIVE /HPF; WBC,URINE 0-2 /HPF
[2022-12-04 02:05] LABS: HYALINE CASTS, URINE 0-2 /LPF; LEUKOCYTE ESTERASE ,URINE NEGATIVE (NEGATIVE); SQUAMOUS EPITHELIAL CELL,UR RARE /HPF
[2022-12-04 03:05] VITALS: BP 101/58
[2022-12-04 05:28] LABS: HEMOGLOBIN 11.1 g/dL (13.3-17.7); MONOCYTES % (AUTO) 11 % (0-12)
[2022-12-04 05:30] LABS: BASOPHILS # (AUTO) 0.1 10^3/uL (0.0-0.1); BASOPHILS % (AUTO) 1 % (0-10); EOSINOPHILS # (AUTO) 0.1 10^3/uL (0.0-0.3); EOSINOPHILS % (AUTO) 1 % (0-10); HEMATOCRIT 32 % (40-54); LYMPHOCYTES # (AUTO) 1.6 10^3/uL (1.0-4.0); LYMPHOCYTES % (AUTO) 15 % (12-44); MEAN CORPUSCULAR HEMOGLOBIN 39 pg (25-34); MEAN CORPUSCULAR HGB CONC 35 g/dL (32-36); MEAN CORPUSCULAR VOLUME 110 fL (80-99); MEAN PLATELET VOLUME 11.6 fL (9.0-12.2); MONOCYTES # (AUTO) 1.2 10^3/uL (0.0-1.0); NEUTROPHILS # (AUTO) 7.7 10^3/uL (1.8-7.8); NEUTROPHILS % (AUTO) 72 % (42-75); PLATELET COUNT 67 10^3/uL (130-400); WHITE BLOOD COUNT 10.7 10^3/uL (4.3-11.0)
[2022-12-04 05:43] LABS: CALCIUM 8.1 MG/DL (8.5-10.1); CREATININE SERUM 1.42 MG/DL (0.60-1.30); POTASSIUM 4.8 MMOL/L (3.6-5.0)
[2022-12-04 06:02] LABS: SMEAR SCAN COMMENT YES
[2022-12-04] MEDS ORDERED: LEVOTHYROXINE 75 MCG (LEVOTHROID) TABLET PO SCH (06:30)
[2022-12-04] MEDS ORDERED: LEVOTHYROXINE 100 MCG (LEVOTHROID) TAB PO SCH (06:30)
[2022-12-04] MEDS ORDERED: CALCIUM CARBONATE 500 MG (TUMS) TAB.CHEW PO PRN (07:15)
[2022-12-04 08:00] VITALS: BP 103/65
[2022-12-04] MEDS: PIPERACILLIN SODIUM/TAZOBACTAM 4.5 GM in NS (IVPB) 100 ML IV SCH (08:06)
[2022-12-04] MEDS: APIXABAN 5 MG (ELIQUIS) TABLET PO SCH (08:07)
[2022-12-04] MEDS: oxyCODONE ER 15 MG (oxyCONTIN CR) TAB PO SCH (08:07)
[2022-12-04] MEDS: NS IV 1000 ML 1,000 ML IV SCH (08:30)
[2022-12-04] MEDS ORDERED: DOCUSATE SODIUM 100 MG (COLACE) CAP PO SCH (09:00)
[2022-12-04] MEDS ORDERED: PANTOPRAZOLE 40 MG (PROTONIX) TAB PO SCH (09:00)
[2022-12-04] MEDS ORDERED: SENNOSIDES 8.6 MG (SENOKOT) TAB PO SCH (09:00)
[2022-12-04] MEDS ORDERED: AMOX1TAB12 PO (10:47)
[2022-12-04 11:35] VITALS: BP 110/70
[2022-12-04] MEDS ORDERED: VANCOMYCIN 750 MG/NS 250 ML IVPB IV SCH ×2 (12:00)
[2022-12-04 14:27] VITALS: BP 110/70
--- NOTE | 2022-12-04 17:30 | Short Stay Summary-Hospitalist ---
History of Present Illness HPI/Chief Complaint Frank Nova is a 66 year old male with metastatic pancreatic cancer to the liver who was admitted for left leg cellulitis. He had redness of his leg. He has had bilateral lower extremity swelling. He has had pain in his leg. He has a history of DVT. He denies any fevers. He denies shortness of breath and cough. He denies abdominal pain. He has a pleural drain in place due to recurrent malignant ascites. He is not currently undergoing chemotherapy. He is trying to get into a clinical trial at . He follows with Dr. Thompson. He has been on hospice until this hospitalization. Source: patient, family Exam Limitations: no limitations Date Seen 12/04/22 Time Seen by a Provider: 10:40 Attending Physician No,Local Physician PCP Admitting Physician: Delicia Martel MD Attending Physician: Delicia Martel MD Referring Physician Date of Admission Dec 03, 2022 at 22:08 Home Medications & Allergies Home Medications Reviewed patient Home Medication Reconciliation performed by pharmacy medication reconciliations advanced manufacturing technician and/or nursing. Patients Allergies have been reviewed. Allergies Allergies Coded Allergies morphine (Verified Allergy, Mild, rash, 12/02/22) Past Wjbrdql-Hsvycg-Bjnvkv Hx Patient Social History Tobacco Use?: No Use of E-Cig and/or Vaping dev: No Substance use?: No Alcohol Use?: No Pt feels they are or have been: No Immunizations Up To Date First/Initial COVID19 Vaccinat: n/a Second COVID19 Vaccination Kumar: n/a Tetanus Booster (TDap): Unknown Seasonal Allergies Seasonal Allergies: Yes Current Status Advance Directives: No Communicates: Verbally Primary Language: Sammarinese Preferred Spoken Language: Sammarinese Is interpretation needed?: No Sensory deficits: Vision impairment Past Medical History Pulmonary Embolism Currently Using CPAP: No Currently Using BIPAP: No Atrial Fibrillation, Deep Vein Thrombosis, High Cholesterol Kidney Stones Hypothyroidsim, Diabetes, Non-Insulin dep Loss of Vision: Denies Hearing Impairment: Denies Liver, Pancreatic Recent Skin Changes Blood Disorders: Yes (blood clots) Family Medical History No Pertinent Family Hx Review of Systems Constitutional: no symptoms reported Respiratory: no symptoms reported Cardiovascular: no symptoms reported Physical Exam Physical Exam Vital Signs Vital Signs - First Documented 12/03/22 16:16 Temp 35.6 Pulse 98 Resp 25 B/P (MAP) 117/73 (88) Pulse Ox 99 O2 Delivery Room Air Capillary Refill : Height, Weight, BMI Height: 6'1.00" Weight: 348lbs. oz. 157.744683iv; 33.49 BMI Method:Stated General Appearance: No Apparent Distress, Obese Respiratory: Lungs Clear, No Respiratory Distress Cardiovascular: Regular Rate, Rhythm, No Murmur Gastrointestinal: Normal Bowel Sounds, Soft, Distended Extremity: Non Tender, Inflammation (mild erythema of left foot and ankle), Swelling (4+) Neurologic/Psychiatric: Alert, Normal Mood/Affect Skin: Normal Color, Warm/Dry Results Results/Procedures Labs Laboratory Tests 12/03/22 16:43 12/04/22 05:20 Patient resulted labs reviewed. Imaging: Reviewed Imaging Report Short Stay Diagnosis Discharge Diagnosis-Short Stay Admission Diagnosis Cellulitis, AYDEE Final Discharge Diagnosis Cellulitis, AYDEE Conclusion Plan Cellulitis Acute kidney injury Lactic acidosis Metastatic pancreatic cancer to the liver Malignant ascites Poor prognosis Complete course of Augmentin Stay well hydrated Follow up with [facility] for possible clinical trial Diagnosis/Problems Diagnosis/Problems (1) Cellulitis of leg, left Status: Acute (2) Acute kidney injury Status: Acute (3) Lactic acidosis Status: Acute (4) Pancreatic cancer metastasized to liver Status: Acute (5) Malignant ascites Status: Acute (6) Poor prognosis Status: Acute Copy Copies To 1: TANYA THOMPSON JARIN M MD Dec 04, 2022 17:30
[2022-12-04] MEDS ORDERED: TAMSULOSIN 0.4 MG (FLOMAX) CAP PO SCH (18:00)
== END 2022-12-04 10:47 | disposition home or self-care (01) ==
LOC: EDUNIT# 16:09 → ER 16:11 → UNDOADMOB 22:08 → 4TH 22:08 → UNDODISOB 12-04 10:47
PROVIDERS: ADMIT Internal Medicine; ATTEND Internal Medicine
DX: L03.116 Cellulitis of left lower limb (principal); N17.9 Acute kidney failure, unspecified; E87.20 Acidosis, unspecified; C25.9 Malignant neoplasm of pancreas, unspecified; C78.7 Secondary malignant neoplasm of liver and intrahepatic bile duct; R18.0 Malignant ascites; Z28.310 Unvaccinated for COVID-19
CPT/HCPCS: 36556; 71045; 80048; 80053; 81000; 83605 ×2; 85025 ×2; 85610; 85730; 86141; 87040; 87088; 93971; 96376 ×2; 99284; G0378; 36415; 96361; 96365; 96367